=== PATIENT | male | born 1950 | race African-American/Black ===

== ENCOUNTER 2019-11-08 19:31 | Inpatient (IN) | payer MEDICARE, MEDICAID ==
[~2019-11-08] VITALS: Ht 160 cm; Wt 95.7 kg
[~2019-11-08 19:31] MED LIST: ALBUTEROL SULFAT2 MG PO; ATROVENT15 M1 NASAL; FERROUS SULFAT325 MG ORAL; LEVOTHYROXINE150 MCG ORAL; LISINOPRIL2.5 MG ORAL; QVAR7.3 GM INH; TYLENOL325 MG ORAL
[2019-11-08] MEDS ORDERED: SIMVASTATIN10 MG ORAL (19:48)
[2019-11-08] MEDS ORDERED: MINERAL OIL EN133 ML RC (19:48)
[2019-11-08] MEDS ORDERED: DULCOLAX10 MG RC (19:48)
[2019-11-08] MEDS ORDERED: SORBITOL 70%30 ML GT (19:48)
[2019-11-08] MEDS ORDERED: SENNA8.6 M2 PO (19:48)
[2019-11-08] MEDS ORDERED: VITAMIN B-12500 MCG ORAL (19:48)
[2019-11-08] MEDS ORDERED: MULTIVITAMINS1 EAC2 ORAL (19:48)
[2019-11-08 20:00] VITALS: BP 126/68
[2019-11-08] MEDS ORDERED: Acetaminophen 650 MG SUPP RECTAL ONE ×2 (20:04→20:15)
[2019-11-08 20:17] LABS: APPEARANCE,URINE SLIGHTLY CLOUDY; BILIRUBIN, URINE NEGATIVE (NEGATIVE); COLOR,URINE AMBER; GLUCOSE, URINE (UA) NEGATIVE (NEGATIVE); HEMATOCRIT 45.6 % (42.0-52.0); HEMOGLOBIN 13.5 G/DL (14.2-18.0); KETONES,URINE NEGATIVE (NEGATIVE); LEUKOCYTE ESTERASE ,URINE 3+ (NEGATIVE); MEAN CORPUSCULAR VOLUME 111 FL (80-99); NITRITE,URINE POSITIVE (NEGATIVE); PH,URINE 8 (4.5-8.0); PLATELET COUNT 109 K/UL (150-450); PROTEIN,URINE 4+ (NEGATIVE); RED BLOOD COUNT 4.09 M/UL (4.70-6.10); UROBILINOGEN,URINE NORMAL MG/DL (0.0-1.0)
[2019-11-08 20:20] LABS: WHITE BLOOD COUNT 26.9 K/UL (4.8-10.8)
[2019-11-08 20:27] LABS: INR 1.1 (0.9-1.1)
[2019-11-08 20:30] LABS: ANION GAP 8 mmol/L (5-15); BLOOD UREA NITROGEN 39 mg/dL (7-18); CALCIUM 9.6 MG/DL (8.5-10.1); CARBON DIOXIDE 34 MMOL/L (21-32); CHLORIDE 116 MMOL/L (98-107); CREATININE 2.4 MG/DL (0.55-1.30); POTASSIUM 4.2 MMOL/L (3.5-5.1); SODIUM 158 MMOL/L (136-145)
[2019-11-08] MEDS ORDERED: Vancomycin 1.5gm/NS Premix 275 ML IVPB SCH (20:30)
[2019-11-08] MEDS ORDERED: cefTRIAXone 1 GM in NS 55 ML IVPB ONE (20:30)
--- NOTE | 2019-11-08 20:32 | Diagnostic Imaging Report ---
EXAM: XR Chest, 1 View CLINICAL HISTORY: SOB TECHNIQUE: Frontal view of the chest. COMPARISON: 12/22/15 FINDINGS: Lungs: Low lung volumes with bronchovascular crowding. No consolidation, pleural effusion, or pneumothorax. Pleural space: See above. Heart: Unremarkable. No cardiomegaly. Mediastinum: Unremarkable. Bones/joints: Advanced left glenohumeral degenerative findings. IMPRESSION: 1. Low lung volumes with bronchovascular crowding. 2. Otherwise no acute cardiopulmonary disease. 3. If there is continued concern, recommend frontal and lateral chest radiographs or CT. 4. Advanced left glenohumeral degenerative findings.
--- NOTE | 2019-11-08 20:32 | Emergency Room Report ---
History of Present Illness General Chief Complaint: Abnormal Labs Source: Patient Present Illness HPI Patient is a 69-year-old male sent in by nursing facility for abnormal labs. Patient was sent in from the [facility]. Patient has prior history of Down syndrome. Was noted to have abnormal laboratory testing was sent in for further evaluation. Patient had reportedly had been having increased shaking. 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 COVID-19 Screening: PUI COVID-19 COVID-19 Testing Source: k resuts Patient History Past Medical History: see triage record Reviewed Nursing Documentation: PMH: Agreed; PSxH: Agreed Nursing Documentation-PMH Past Medical History: No History, Except For Hx Diabetes: Yes - Type II, Hypothyriodism Review of Systems All Other Systems: limited - Limited by mental status and poor historian Physical Exam Vital Signs Date Time Temp Pulse Resp B/P (MAP) Pulse Ox O2 Delivery O2 Flow Rate FiO2 11/08/19 19:34 97.9 68 20 126/68 (87) 97 Nasal Cannula 3.0 General Appearance: obese, Chronically Ill Eyes: bilateral eye PERRL, bilateral eye other - Right-sided eye discharge ENT: moist mucus membranes Neck: limited range of motion Respiratory: lungs clear, normal breath sounds Cardiovascular #1: tachycardia Gastrointestinal: soft Musculoskeletal: back normal 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 Differential diagnosis include was not limited to pneumonia, bronchitis, urinary tract infection, novel coronavirus infection among others. Because of complexity of patient's case laboratory tests and imaging studies were ordered. Patient's laboratory testing showed markedly elevated white blood count. Urinalysis showed evidence of urinary infection with too numerous to count white cells in urine. Patient was started on IV fluids as well as IV antibiotics. [facility] Davon Falk was contacted for inpatient management Labs Test 11/08/19 19:45 11/08/19 21:17 White Blood Count 26.9 K/UL (4.8-10.8) Red Blood Count 4.09 M/UL (4.70-6.10) Hemoglobin 13.5 G/DL (14.2-18.0) Hematocrit 45.6 % (42.0-52.0) Mean Corpuscular Volume 111 FL (80-99) Mean Corpuscular Hemoglobin 33.0 PG (27.0-31.0) Mean Corpuscular Hemoglobin Concent 29.7 G/DL (32.0-36.0) Red Cell Distribution Width 15.0 % (11.6-14.8) Platelet Count 109 K/UL (150-450) Mean Platelet Volume 12.2 FL (6.5-10.1) Neutrophils (%) (Auto) % (45.0-75.0) Lymphocytes (%) (Auto) % (20.0-45.0) Monocytes (%) (Auto) % (1.0-10.0) Eosinophils (%) (Auto) % (0.0-3.0) Basophils (%) (Auto) % (0.0-2.0) Differential Total Cells Counted 100 Neutrophils % (Manual) 92 % (45-75) Lymphocytes % (Manual) 4 % (20-45) Monocytes % (Manual) 1 % (1-10) Eosinophils % (Manual) 0 % (0-3) Basophils % (Manual) 0 % (0-2) Band Neutrophils 3 % (0-8) Toxic Granulation 1+ Platelet Estimate Decreased Platelet Morphology Normal Anisocytosis 1+ Prothrombin Time 12.2 SEC (9.30-11.50) Prothromb Time International Ratio 1.1 (0.9-1.1) Activated Partial Thromboplast Time 25 SEC (23-33) Urine Color Amanda Urine Appearance Slightly cloudy Urine pH 8 (4.5-8.0) Urine Specific [place] 1.020 (1.005-1.035) Urine Protein 4+ (NEGATIVE) Urine Glucose (UA) Negative (NEGATIVE) Urine Ketones Negative (NEGATIVE) Urine Blood 4+ (NEGATIVE) Urine Nitrite Positive (NEGATIVE) Urine Bilirubin Negative (NEGATIVE) Urine Ictotest Negative (NEGATIVE) Urine Urobilinogen Normal MG/DL (0.0-1.0) Urine Leukocyte Esterase 3+ (NEGATIVE) Urine RBC 15-20 /HPF (0 - 0) Urine WBC Tntc /HPF (0 - 0) Urine Squamous Epithelial Cells Many /LPF (NONE/OCC) Urine Amorphous Sediment Moderate /LPF (NONE) Urine Bacteria Many /HPF (NONE) Sodium Level 158 MMOL/L (136-145) Potassium Level 4.2 MMOL/L (3.5-5.1) Chloride Level 116 MMOL/L (98-107) Carbon Dioxide Level 34 MMOL/L (21-32) Anion Gap 8 mmol/L (5-15) Blood Urea Nitrogen 39 mg/dL (7-18) Creatinine 2.4 MG/DL (0.55-1.30) Estimat Glomerular Filtration Rate 32.8 mL/min (>60) Glucose Level 206 MG/DL (74-106) Calcium Level 9.6 MG/DL (8.5-10.1) Total Bilirubin 0.4 MG/DL (0.2-1.0) Aspartate Amino Transf (AST/SGOT) 43 U/L (15-37) Alanine Aminotransferase (ALT/SGPT) 51 U/L (12-78) Alkaline Phosphatase 104 U/L (46-116) Total Creatine Kinase 281 U/L (26-308) Creatine Kinase MB 1.7 NG/ML (0.0-3.6) Creatine Kinase MB Relative Index 0.6 Troponin I 0.208 ng/mL (0.000-0.056) Pro-B-Type Natriuretic Peptide 3705 pg/mL (0-125) Total Protein 7.9 G/DL (6.4-8.2) Albumin 1.9 G/DL (3.4-5.0) Globulin 6.0 g/dL Albumin/Globulin Ratio 0.3 (1.0-2.7) Lactic Acid Level 1.90 mmol/L (0.66-2.22) Last Vital Signs Date Time Temp Pulse Resp B/P (MAP) Pulse Ox O2 Delivery O2 Flow Rate FiO2 11/08/19 20:00 103.7 108 20 126/68 97 Nasal Cannula 2.0 Status: unchanged Disposition: ADMITTED INPATIENT Condition: Serious Referrals: [place] DO (PCP) Cornel Orozco MD November 08, 2019 20:32
[2019-11-08] MEDS ORDERED: Vancomycin 1.5gm x1 (Pts>70kg) IVPB ONE ×2 (20:45)
[2019-11-08 20:53] LABS: ALANINE AMINOTRANSFERASE 51 U/L (12-78); ALBUMIN 1.9 G/DL (3.4-5.0); ALBUMIN/GLOBULIN RATIO 0.3 (1.0-2.7); ALKALINE PHOSPHATASE 104 U/L (46-116); ASPARTATE AMINO TRANSFERASE 43 U/L (15-37); BILIRUBIN,TOTAL 0.4 MG/DL (0.2-1.0); CKMB 1.7 NG/ML (0.0-3.6); CREATINE KINASE 281 U/L (26-308)
[2019-11-08 22:48] VITALS: BP 126/68
[2019-11-08 23:45] VITALS: BP 174/124
[2019-11-08] MEDS ORDERED: dilTIAZem HCl 25mg/5ml Inj ONE (23:51)
[2019-11-09] VITALS (12 sets, daily range): BP systolic 67–134; BP diastolic 40–98
[2019-11-09] MEDS ORDERED: dilTIAZem HCl 50mg/10ml Inj IVP ONE
[2019-11-09] MEDS ORDERED: D5 1/2NS 1,000 ML IV SCH (01:30)
[2019-11-09] MEDS ORDERED: Zosyn 2.25gm inj IV SCH (06:00)
[2019-11-09] MEDS: Zoysn 3.37gm in NS 100ML IVPB SCH ×3 (07:33→21:48)
[2019-11-09 07:54] LABS: HEMATOCRIT 34.7 % (42.0-52.0); HEMOGLOBIN 11.6 G/DL (14.2-18.0); MEAN CORPUSCULAR VOLUME 102 FL (80-99); PLATELET COUNT 77 K/UL (150-450); RED BLOOD COUNT 3.41 M/UL (4.70-6.10); RED CELL DISTRIBUTION WIDTH 14.3 % (11.6-14.8)
[2019-11-09 07:57] LABS: WHITE BLOOD COUNT 28.9 K/UL (4.8-10.8)
[2019-11-09 08:22] LABS: ANION GAP 4 mmol/L (5-15); BLOOD UREA NITROGEN 37 mg/dL (7-18); CALCIUM 8.5 MG/DL (8.5-10.1); CARBON DIOXIDE 32 MMOL/L (21-32); CHLORIDE 120 MMOL/L (98-107); CREATININE 2.2 MG/DL (0.55-1.30); FERRITIN 538 NG/ML (8-388); PHOSPHORUS 3.8 MG/DL (2.5-4.9); POTASSIUM 4.5 MMOL/L (3.5-5.1); SODIUM 156 MMOL/L (136-145)
[2019-11-09] MEDS: Enoxaparin 40mg Inj SUBQ SCH (09:00)
--- NOTE | 2019-11-09 09:37 | Consultation ---
History of Present Illness General Date patient seen: November 09, 2019 Time patient seen: 08:00 Chief Complaint: Abnormal Labs Referring physician: Dr Falk Reason for Consultation: COPD, sepsis Present Illness HPI 69 years old male with DNR/ DNI status, with past medical history of Down syndrome, sleep apnea, hypothyroidism, diabetes mellitus, [facility] due to abnormal labs. Upon evaluation patient had fever 103.7 and required 3 L of oxygen via nasal cannula. Laboratory work-up revealed significant leukocytosis WBC 26.9 , hemoglobin 13.5 , hematocrit 45.6, platelet count 109. Lymphopenia noted 4%. INR 1.1. Urinalysis revealed + 4 protein, +3 leukocyte esterase, pyuria and many bacteria/ grossly positive for UTI. Chemistry revealed sodium 158 . BUN 39, creatinine 2.4. Glucose 206. Total CK 281. AST 43 ALT 51. Troponin 0.208 , pro BNP 2654 ECG revealed no acute ischemic changes. Lactic acid 1.9 CXR revealed low lung volumes with bronchovascular crowding. Otherwise no acute cardiopulmonary disease. Patient was swab for COVID-19 Patient subsequently admitted to telemetry floor for further management. In emergency department patient pancultured, received antipyretic, started on IV fluids and empiric antibiotics and admitted for further management. Allergies: Coded Allergies: ALLOPURINOL (Verified Allergy, Unknown, 12/22/15) Medication History Scheduled Albuterol Sulfate* (Albuterol Sulfate*), 2 MG PO QID, (Reported) Beclomethasone Dipropionate 40MCG Oral Inh (Qvar 40*), 2 PUFFS INH TWICE A DAY, (Reported) Cyanocobalamin (Vitamin B-12)* (Vitamin B-12*), 1,000 MCG ORAL DAILY, (Reported) Ferrous Sulfate* (Ferrous Sulfate*), 325 MG ORAL TWICE A DAY, (Reported) Ipratropium [place] (Atrovent), 1 SPRAY NASAL FOUR TIMES A DAY, (Reported) Levothyroxine Sodium* (Levothyroxine Sodium*), 150 MCG ORAL DAILY, (Reported) Lisinopril* (Lisinopril*), 5 MG ORAL DAILY, (Reported) Multivitamins* (Multivitamins*), 1 TAB ORAL DAILY, (Reported) Simvastatin (Zocor), 10 MG ORAL BEDTIME, (Reported) Scheduled PRN Acetaminophen (Tylenol), 650 MG ORAL Q4HR PRN for For Pain, (Reported) Miscellaneous Medications Bisacodyl (Dulcolax), 10 MG RC, (Reported) Mineral Oil (Mineral Oil Enema), 133 ML RC, (Reported) Sennosides (Senna), 8.6 MG PO, (Reported) Sorbitol (Sorbitol), 30 ML GT, (Reported) Patient History Healthcare decision maker Resuscitation status DNR/DNI status Advanced Directive on File Review of Systems ROS Narrative unable to obtain due to patient's medical condition Physical Exam General Appearance: no apparent distress, alert, confused, other - developmentally delayed bedridden male in NAD Lines, tubes and drains: peripheral HEENT: normocephalic, atraumatic, anicteric Neck: supple Respiratory/Chest: lungs clear, no respiratory distress Cardiovascular/Chest: normal rate - SR with BBB, regular rhythm Abdomen: normal bowel sounds, non tender, soft - obese Extremities: other - trace edema BLE Skin Exam: warm/dry Neurologic: abnormal gait, other - awake, poorly follows commands, limited ROM Last 24 Hour Vital Signs Date Time Temp Pulse Resp B/P (MAP) Pulse Ox O2 Delivery O2 Flow Rate FiO2 11/09/19 08:59 Nasal Cannula 2.0 11/09/19 08:00 97.5 86 18 99/51 (67) 95 11/09/19 06:55 99.5 83 24 90/49 (63) 95 11/09/19 06:30 99.5 80 24 75/40 (52) 97 11/09/19 06:30 81 24 95 11/09/19 06:00 99.8 81 24 72/45 (54) 94 11/09/19 04:45 99.2 87 23 87/51 (63) 95 11/09/19 04:00 98.9 82 24 67/40 (49) 96 11/09/19 04:00 86 11/09/19 01:05 100.6 88 22 78/45 (56) 94 11/09/19 01:00 Nasal Cannula 2.0 11/09/19 00:50 100.6 83 22 88/49 (62) 94 11/09/19 00:40 100.6 11/09/19 00:05 101.8 91 20 174/124 97 Nasal Cannula 2.0 11/09/19 00:00 101.8 91 20 134/98 97 Nasal Cannula 2.0 11/09/19 00:00 88 11/08/19 23:58 145 174/124 11/08/19 23:45 101.8 145 20 174/124 97 Nasal Cannula 2.0 11/08/19 22:48 101.8 108 20 126/68 97 Nasal Cannula 2.0 11/08/19 20:00 103.7 108 20 126/68 97 Nasal Cannula 2.0 11/08/19 19:34 97.9 68 20 126/68 (87) 97 Nasal Cannula 3.0 Intake and Output 11/08/19 11/09/19 19:00 07:00 Intake Total 0 ml Output Total 150 ml Balance -150 ml Intake Oral 0 ml Output Urine Total 150 ml Laboratory Tests Test 11/08/19 19:45 11/08/19 21:17 11/09/19 06:58 White Blood Count 26.9 K/UL (4.8-10.8) *H 28.9 K/UL (4.8-10.8) *H Red Blood Count 4.09 M/UL (4.70-6.10) L 3.41 M/UL (4.70-6.10) L Hemoglobin 13.5 G/DL (14.2-18.0) L 11.6 G/DL (14.2-18.0) L Hematocrit 45.6 % (42.0-52.0) 34.7 % (42.0-52.0) L Mean Corpuscular Volume 111 FL (80-99) H 102 FL (80-99) #H Mean Corpuscular Hemoglobin 33.0 PG (27.0-31.0) H 33.9 PG (27.0-31.0) H Mean Corpuscular Hemoglobin Concent 29.7 G/DL (32.0-36.0) L 33.3 G/DL (32.0-36.0) Red Cell Distribution Width 15.0 % (11.6-14.8) H 14.3 % (11.6-14.8) Platelet Count 109 K/UL (150-450) L 77 K/UL (150-450) L Mean Platelet Volume 12.2 FL (6.5-10.1) H 14.9 FL (6.5-10.1) H Neutrophils (%) (Auto) % (45.0-75.0) % (45.0-75.0) Lymphocytes (%) (Auto) % (20.0-45.0) % (20.0-45.0) Monocytes (%) (Auto) % (1.0-10.0) % (1.0-10.0) Eosinophils (%) (Auto) % (0.0-3.0) % (0.0-3.0) Basophils (%) (Auto) % (0.0-2.0) % (0.0-2.0) Differential Total Cells Counted 100 Neutrophils % (Manual) 92 % (45-75) H Pending Lymphocytes % (Manual) 4 % (20-45) L Pending Monocytes % (Manual) 1 % (1-10) Eosinophils % (Manual) 0 % (0-3) Basophils % (Manual) 0 % (0-2) Band Neutrophils 3 % (0-8) Toxic Granulation 1+ Platelet Estimate Decreased L Pending Platelet Morphology Normal Pending Anisocytosis 1+ Prothrombin Time 12.2 SEC (9.30-11.50) H Prothromb Time International Ratio 1.1 (0.9-1.1) Activated Partial Thromboplast Time 25 SEC (23-33) Urine Color Amanda Urine Appearance Slightly cloudy Urine pH 8 (4.5-8.0) Urine Specific [place] 1.020 (1.005-1.035) Urine Protein 4+ (NEGATIVE) H Urine Glucose (UA) Negative (NEGATIVE) Urine Ketones Negative (NEGATIVE) Urine Blood 4+ (NEGATIVE) H Urine Nitrite Positive (NEGATIVE) H Urine Bilirubin Negative (NEGATIVE) Urine Ictotest Negative (NEGATIVE) Urine Urobilinogen Normal MG/DL (0.0-1.0) Urine Leukocyte Esterase 3+ (NEGATIVE) H Urine RBC 15-20 /HPF (0 - 0) H Urine WBC Tntc /HPF (0 - 0) H Urine Squamous Epithelial Cells Many /LPF (NONE/OCC) H Urine Amorphous Sediment Moderate /LPF (NONE) H Urine Bacteria Many /HPF (NONE) H Sodium Level 158 MMOL/L (136-145) H 156 MMOL/L (136-145) H Potassium Level 4.2 MMOL/L (3.5-5.1) 4.5 MMOL/L (3.5-5.1) Chloride Level 116 MMOL/L (98-107) H 120 MMOL/L (98-107) H Carbon Dioxide Level 34 MMOL/L (21-32) H 32 MMOL/L (21-32) Anion Gap 8 mmol/L (5-15) 4 mmol/L (5-15) L Blood Urea Nitrogen 39 mg/dL (7-18) H 37 mg/dL (7-18) H Creatinine 2.4 MG/DL (0.55-1.30) H 2.2 MG/DL (0.55-1.30) H Estimat Glomerular Filtration Rate 32.8 mL/min (>60) 36.2 mL/min (>60) Glucose Level 206 MG/DL (74-106) H 194 MG/DL (74-106) H Lactic Acid Level 4.10 mmol/L (0.4-2.0) H 1.90 mmol/L (0.66-2.22) Calcium Level 9.6 MG/DL (8.5-10.1) 8.5 MG/DL (8.5-10.1) Total Bilirubin 0.4 MG/DL (0.2-1.0) Aspartate Amino Transf (AST/SGOT) 43 U/L (15-37) H Alanine Aminotransferase (ALT/SGPT) 51 U/L (12-78) Alkaline Phosphatase 104 U/L (46-116) Total Creatine Kinase 281 U/L (26-308) Creatine Kinase MB 1.7 NG/ML (0.0-3.6) Creatine Kinase MB Relative Index 0.6 Troponin I 0.208 ng/mL (0.000-0.056) 0.147 ng/mL (0.000-0.056) Pro-B-Type Natriuretic Peptide 3705 pg/mL (0-125) H 2654 pg/mL (0-125) H Total Protein 7.9 G/DL (6.4-8.2) Albumin 1.9 G/DL (3.4-5.0) L Globulin 6.0 g/dL Albumin/Globulin Ratio 0.3 (1.0-2.7) L Phosphorus Level 3.8 MG/DL (2.5-4.9) Magnesium Level 2.0 MG/DL (1.8-2.4) Ferritin 538 NG/ML (8-388) H Procainamide Level Pending T-Mrdfjw-Izwktfcuffpy Level Pending Procainamide & NAPA Level Pending Microbiology Date/Time Source Procedure Growth Status 11/08/19 19:45 Urine,Clean Catch Urine Culture - Preliminary NO GROWTH Resulted 11/08/19 20:08 Rectum Received Height (Feet): 5 Height (Inches): 3.00 Weight (Pounds): 218 Medications Current Medications Medications (Trade) Dose Ordered Sig/Femi Route PRN Reason Start Time Stop Time Status Last Admin Dose Admin Dextrose/Sodium Chloride 1,000 ml @ 50 mls/hr Q20H IV 11/09/19 01:30 12/09/19 01:29 11/09/19 02:16 Enoxaparin Sodium (Lovenox) 40 mg DAILY SUBQ 11/09/19 09:00 02/07/20 08:59 Piperacillin Sod/ Tazobactam Sod 3.375 gm/Sodium Chloride 110 ml @ 27.5 mls/hr EVERY 8 HOURS IVPB 11/09/19 06:00 11/14/19 05:59 11/09/19 07:33 Vancomycin HCl (Vanco rx to dose) 1 ea DAILY MISC 11/09/19 09:00 12/09/19 08:59 Assessment/Plan Assessment/Plan: ASSESSMENT Sepsis Suspected COVID-19 infection UTI Possible pneumonia Acute kidney injury likely due to dehydration Elevated troponin possible ACS Diabetes mellitus Obstructive sleep apnea Hypothyroidism Down syndrome Thrombocytopenia DNR/DNI status PLAN OF CARE tele isolation fup with SARS-COV 2 by PSR O2 titrate to keep sat above 92%, pulmonary toilet fup with CXR DVT prophylaxis closely monitor resp status, may need BiPAP at night, Co2 stable currently empiric abx, fup with cx ID consult serial troponin EKG echo NPO, IVF, monitor renal parameters, electrolytes, avoid nephrotoxic possible underlying chronic renal insufficiency trend PLT counts, may need to stop Heparin if falls below 90 check HgA1c, IVF with dextrose, monitor BS check TSH and resume Levothyroxine when start eating resume SNF medication supportive care case discussed and evaluated by supervising physician Candy Hurley NP November 09, 2019 09:37
--- NOTE | 2019-11-09 13:37 | History & Physical ---
History and Physical History & Physicial Dictated for Int Med-Dr Falk no. [id number] Luis Rodriguez MD November 09, 2019 13:37
--- NOTE | 2019-11-09 14:24 | Consultation ---
Consult Note Consult Note I am asked to evaluate the patient at the request of Dr. Falk for renal failure Patient is a 69-year-old male sent in by nursing facility for abnormal labs. Patient was sent in from the [facility]. Patient has prior history of Down syndrome. Was noted to have abnormal laboratory testing was sent in for further evaluation. Patient had reportedly had been having increased shaking. 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 COVID-19 Screening: PUI COVID-19 COVID-19 Testing Source: unk resuts Past Medical History: No History, Except For Hx Diabetes: Yes - Type II, Hypothyriodism Patient interviewed, non-historian Examined Data reviewed Discussed with wood borer/Plan Renal failure most likely acute on chronic Renal failure has a major component of dehydration due to hypernatremia Sepsis and leukocytosis, possible pneumonia Anemia Elevated troponin 4+ proteinuria, UTI Suspected COVID-19 infection Diabetes mellitus Obstructive sleep apnea Down syndrome Hypothyroidism DNR/DNI Suggestions: Hydrate with D5W ST eval Monitor renal parameters Avoid nephrotoxic's Antibiotics Thyroid function tests Keep the blood pressure and blood sugar in check Serial troponin I and EKG Aspirin and nitrates Per orders I spent an additional 36 minutes on review of medical records including prior hospital records,consult notes, progress notes, procedures ,imaging labs, hemodynamics, and other clinical documentation. Alexis Villagomez MD November 09, 2019 14:24
[2019-11-09] MEDS: Nitroglycerin Patch 0.1mg/hr TDERMAL SCH (15:48)
[2019-11-09] MEDS: Pantoprazole Inj IVP SCH ×2 (15:48→20:09)
--- NOTE | 2019-11-09 16:11 | Cardiology Progress Note ---
Subjective Subjective [id number] Objective Last 24 Hour Vital Signs Date Time Temp Pulse Resp B/P (MAP) Pulse Ox O2 Delivery O2 Flow Rate FiO2 11/09/19 15:48 104/69 11/09/19 12:00 70 11/09/19 12:00 96.4 57 19 104/69 (81) 96 11/09/19 08:59 Nasal Cannula 2.0 11/09/19 08:00 97.5 86 18 99/51 (67) 95 11/09/19 08:00 76 11/09/19 06:55 99.5 83 24 90/49 (63) 95 11/09/19 06:30 99.5 80 24 75/40 (52) 97 11/09/19 06:30 81 24 95 11/09/19 06:00 99.8 81 24 72/45 (54) 94 11/09/19 04:45 99.2 87 23 87/51 (63) 95 11/09/19 04:00 98.9 82 24 67/40 (49) 96 11/09/19 04:00 86 11/09/19 01:05 100.6 88 22 78/45 (56) 94 11/09/19 01:00 Nasal Cannula 2.0 11/09/19 00:50 100.6 83 22 88/49 (62) 94 11/09/19 00:40 100.6 11/09/19 00:05 101.8 91 20 174/124 97 Nasal Cannula 2.0 11/09/19 00:00 101.8 91 20 134/98 97 Nasal Cannula 2.0 11/09/19 00:00 88 11/08/19 23:58 145 174/124 11/08/19 23:45 101.8 145 20 174/124 97 Nasal Cannula 2.0 11/08/19 22:48 101.8 108 20 126/68 97 Nasal Cannula 2.0 11/08/19 20:00 103.7 108 20 126/68 97 Nasal Cannula 2.0 11/08/19 19:34 97.9 68 20 126/68 (87) 97 Nasal Cannula 3.0 Intake and Output 11/08/19 11/09/19 19:00 07:00 Intake Total 0 ml Output Total 150 ml Balance -150 ml Intake Oral 0 ml Output Urine Total 150 ml Laboratory Tests Test 5/24/20 19:45 11/08/19 21:17 11/09/19 06:58 White Blood Count 26.9 K/UL (4.8-10.8) *H 28.9 K/UL (4.8-10.8) *H Red Blood Count 4.09 M/UL (4.70-6.10) L 3.41 M/UL (4.70-6.10) L Hemoglobin 13.5 G/DL (14.2-18.0) L 11.6 G/DL (14.2-18.0) L Hematocrit 45.6 % (42.0-52.0) 34.7 % (42.0-52.0) L Mean Corpuscular Volume 111 FL (80-99) H 102 FL (80-99) #H Mean Corpuscular Hemoglobin 33.0 PG (27.0-31.0) H 33.9 PG (27.0-31.0) H Mean Corpuscular Hemoglobin Concent 29.7 G/DL (32.0-36.0) L 33.3 G/DL (32.0-36.0) Red Cell Distribution Width 15.0 % (11.6-14.8) H 14.3 % (11.6-14.8) Platelet Count 109 K/UL (150-450) L 77 K/UL (150-450) L Mean Platelet Volume 12.2 FL (6.5-10.1) H 14.9 FL (6.5-10.1) H Neutrophils (%) (Auto) % (45.0-75.0) % (45.0-75.0) Lymphocytes (%) (Auto) % (20.0-45.0) % (20.0-45.0) Monocytes (%) (Auto) % (1.0-10.0) % (1.0-10.0) Eosinophils (%) (Auto) % (0.0-3.0) % (0.0-3.0) Basophils (%) (Auto) % (0.0-2.0) % (0.0-2.0) Differential Total Cells Counted 100 100 Neutrophils % (Manual) 92 % (45-75) H 88 % (45-75) H Lymphocytes % (Manual) 4 % (20-45) L 5 % (20-45) L Monocytes % (Manual) 1 % (1-10) 3 % (1-10) Eosinophils % (Manual) 0 % (0-3) 0 % (0-3) Basophils % (Manual) 0 % (0-2) 0 % (0-2) Band Neutrophils 3 % (0-8) 4 % (0-8) Toxic Granulation 1+ Platelet Estimate Decreased L Decreased L Platelet Morphology Normal Normal Anisocytosis 1+ 1+ Prothrombin Time 12.2 SEC (9.30-11.50) H Prothromb Time International Ratio 1.1 (0.9-1.1) Activated Partial Thromboplast Time 25 SEC (23-33) Urine Color Amanda Urine Appearance Slightly cloudy Urine pH 8 (4.5-8.0) Urine Specific [place] 1.020 (1.005-1.035) Urine Protein 4+ (NEGATIVE) H Urine Glucose (UA) Negative (NEGATIVE) Urine Ketones Negative (NEGATIVE) Urine Blood 4+ (NEGATIVE) H Urine Nitrite Positive (NEGATIVE) H Urine Bilirubin Negative (NEGATIVE) Urine Ictotest Negative (NEGATIVE) Urine Urobilinogen Normal MG/DL (0.0-1.0) Urine Leukocyte Esterase 3+ (NEGATIVE) H Urine RBC 15-20 /HPF (0 - 0) H Urine WBC Tntc /HPF (0 - 0) H Urine Squamous Epithelial Cells Many /LPF (NONE/OCC) H Urine Amorphous Sediment Moderate /LPF (NONE) H Urine Bacteria Many /HPF (NONE) H Sodium Level 158 MMOL/L (136-145) H 156 MMOL/L (136-145) H Potassium Level 4.2 MMOL/L (3.5-5.1) 4.5 MMOL/L (3.5-5.1) Chloride Level 116 MMOL/L (98-107) H 120 MMOL/L (98-107) H Carbon Dioxide Level 34 MMOL/L (21-32) H 32 MMOL/L (21-32) Anion Gap 8 mmol/L (5-15) 4 mmol/L (5-15) L Blood Urea Nitrogen 39 mg/dL (7-18) H 37 mg/dL (7-18) H Creatinine 2.4 MG/DL (0.55-1.30) H 2.2 MG/DL (0.55-1.30) H Estimat Glomerular Filtration Rate 32.8 mL/min (>60) 36.2 mL/min (>60) Glucose Level 206 MG/DL (74-106) H 194 MG/DL (74-106) H Lactic Acid Level 4.10 mmol/L (0.4-2.0) H 1.90 mmol/L (0.66-2.22) Calcium Level 9.6 MG/DL (8.5-10.1) 8.5 MG/DL (8.5-10.1) Total Bilirubin 0.4 MG/DL (0.2-1.0) Aspartate Amino Transf (AST/SGOT) 43 U/L (15-37) H Alanine Aminotransferase (ALT/SGPT) 51 U/L (12-78) Alkaline Phosphatase 104 U/L (46-116) Total Creatine Kinase 281 U/L (26-308) Creatine Kinase MB 1.7 NG/ML (0.0-3.6) Creatine Kinase MB Relative Index 0.6 Troponin I 0.208 ng/mL (0.000-0.056) 0.147 ng/mL (0.000-0.056) Pro-B-Type Natriuretic Peptide 3705 pg/mL (0-125) H 2654 pg/mL (0-125) H Total Protein 7.9 G/DL (6.4-8.2) Albumin 1.9 G/DL (3.4-5.0) L Globulin 6.0 g/dL Albumin/Globulin Ratio 0.3 (1.0-2.7) L Macrocytosis 1+ Phosphorus Level 3.8 MG/DL (2.5-4.9) Magnesium Level 2.0 MG/DL (1.8-2.4) Ferritin 538 NG/ML (8-388) H Procainamide Level Pending Q-Ehaibg-Zfrvhlkdalye Level Pending Procainamide & NAPA Level Pending Microbiology Date/Time Source Procedure Growth Status 11/08/19 19:45 Urine,Clean Catch Urine Culture - Preliminary NO GROWTH Resulted 11/08/19 20:08 Rectum Received Tiffanie Michel MD November 09, 2019 16:11
--- NOTE | 2019-11-09 17:13 | Consultation ---
History of Present Illness General Date patient seen: November 09, 2019 Chief Complaint: Abnormal Labs Referring physician: Dr Falk Reason for Consultation: COPD, sepsis Present Illness HPI 69 y/o M with hx of Down Syndrome, COPD, Dm2, hypothryoidism, SNF resident ( [facility]) presented to ED on 11/07 with fever up to 103 and YOEL. Allergies: Coded Allergies: ALLOPURINOL (Verified Allergy, Unknown, 12/22/15) Medication History Scheduled Albuterol Sulfate* (Albuterol Sulfate*), 2 MG PO QID, (Reported) Beclomethasone Dipropionate 40MCG Oral Inh (Qvar 40*), 2 PUFFS INH TWICE A DAY, (Reported) Cyanocobalamin (Vitamin B-12)* (Vitamin B-12*), 1,000 MCG ORAL DAILY, (Reported) Ferrous Sulfate* (Ferrous Sulfate*), 325 MG ORAL TWICE A DAY, (Reported) Ipratropium [place]utan (Atrovent), 1 SPRAY NASAL FOUR TIMES A DAY, (Reported) Levothyroxine Sodium* (Levothyroxine Sodium*), 150 MCG ORAL DAILY, (Reported) Lisinopril* (Lisinopril*), 5 MG ORAL DAILY, (Reported) Multivitamins* (Multivitamins*), 1 TAB ORAL DAILY, (Reported) Simvastatin (Zocor), 10 MG ORAL BEDTIME, (Reported) Scheduled PRN Acetaminophen (Tylenol), 650 MG ORAL Q4HR PRN for For Pain, (Reported) Miscellaneous Medications Bisacodyl (Dulcolax), 10 MG RC, (Reported) Mineral Oil (Mineral Oil Enema), 133 ML RC, (Reported) Sennosides (Senna), 8.6 MG PO, (Reported) Sorbitol (Sorbitol), 30 ML GT, (Reported) Patient History Healthcare decision maker Resuscitation status Advanced Directive on File Patient History Narrative Pmhx: as above SHx: reviewed Fhx: non contributory Review of Systems All Other Systems: negative except mentioned in HPI Physical Exam Physical Exam Narrative General Appearance: no apparent distress, alert, confused, other - developmentally delayed bedridden male in NAD Lines, tubes and drains: peripheral HEENT: normocephalic, atraumatic, anicteric Neck: supple Respiratory/Chest: lungs clear, no respiratory distress Cardiovascular/Chest: normal rate - SR with BBB, regular rhythm Abdomen: normal bowel sounds, non tender, soft - obese Extremities: other - trace edema BLE Skin Exam: warm/dry Neurologic: abnormal gait, other - awake, poorly follows commands, limited ROM Last 24 Hour Vital Signs Date Time Temp Pulse Resp B/P (MAP) Pulse Ox O2 Delivery O2 Flow Rate FiO2 11/09/19 16:00 98.6 75 18 108/71 (83) 98 11/09/19 15:48 104/69 11/09/19 12:00 70 11/09/19 12:00 96.4 57 19 104/69 (81) 96 11/09/19 08:59 Nasal Cannula 2.0 11/09/19 08:00 97.5 86 18 99/51 (67) 95 11/09/19 08:00 76 11/09/19 06:55 99.5 83 24 90/49 (63) 95 11/09/19 06:30 99.5 80 24 75/40 (52) 97 11/09/19 06:30 81 24 95 11/09/19 06:00 99.8 81 24 72/45 (54) 94 11/09/19 04:45 99.2 87 23 87/51 (63) 95 11/09/19 04:00 98.9 82 24 67/40 (49) 96 11/09/19 04:00 86 11/09/19 01:05 100.6 88 22 78/45 (56) 94 11/09/19 01:00 Nasal Cannula 2.0 11/09/19 00:50 100.6 83 22 88/49 (62) 94 11/09/19 00:40 100.6 11/09/19 00:05 101.8 91 20 174/124 97 Nasal Cannula 2.0 11/09/19 00:00 101.8 91 20 134/98 97 Nasal Cannula 2.0 11/09/19 00:00 88 11/08/19 23:58 145 174/124 11/08/19 23:45 101.8 145 20 174/124 97 Nasal Cannula 2.0 11/08/19 22:48 101.8 108 20 126/68 97 Nasal Cannula 2.0 11/08/19 20:00 103.7 108 20 126/68 97 Nasal Cannula 2.0 5/24/20 19:34 97.9 68 20 126/68 (87) 97 Nasal Cannula 3.0 Intake and Output 11/08/19 11/09/19 19:00 07:00 Intake Total 0 ml Output Total 150 ml Balance -150 ml Intake Oral 0 ml Output Urine Total 150 ml Laboratory Tests Test 11/08/19 19:45 11/08/19 21:17 11/09/19 06:58 White Blood Count 26.9 K/UL (4.8-10.8) *H 28.9 K/UL (4.8-10.8) *H Red Blood Count 4.09 M/UL (4.70-6.10) L 3.41 M/UL (4.70-6.10) L Hemoglobin 13.5 G/DL (14.2-18.0) L 11.6 G/DL (14.2-18.0) L Hematocrit 45.6 % (42.0-52.0) 34.7 % (42.0-52.0) L Mean Corpuscular Volume 111 FL (80-99) H 102 FL (80-99) #H Mean Corpuscular Hemoglobin 33.0 PG (27.0-31.0) H 33.9 PG (27.0-31.0) H Mean Corpuscular Hemoglobin Concent 29.7 G/DL (32.0-36.0) L 33.3 G/DL (32.0-36.0) Red Cell Distribution Width 15.0 % (11.6-14.8) H 14.3 % (11.6-14.8) Platelet Count 109 K/UL (150-450) L 77 K/UL (150-450) L Mean Platelet Volume 12.2 FL (6.5-10.1) H 14.9 FL (6.5-10.1) H Neutrophils (%) (Auto) % (45.0-75.0) % (45.0-75.0) Lymphocytes (%) (Auto) % (20.0-45.0) % (20.0-45.0) Monocytes (%) (Auto) % (1.0-10.0) % (1.0-10.0) Eosinophils (%) (Auto) % (0.0-3.0) % (0.0-3.0) Basophils (%) (Auto) % (0.0-2.0) % (0.0-2.0) Differential Total Cells Counted 100 100 Neutrophils % (Manual) 92 % (45-75) H 88 % (45-75) H Lymphocytes % (Manual) 4 % (20-45) L 5 % (20-45) L Monocytes % (Manual) 1 % (1-10) 3 % (1-10) Eosinophils % (Manual) 0 % (0-3) 0 % (0-3) Basophils % (Manual) 0 % (0-2) 0 % (0-2) Band Neutrophils 3 % (0-8) 4 % (0-8) Toxic Granulation 1+ Platelet Estimate Decreased L Decreased L Platelet Morphology Normal Normal Anisocytosis 1+ 1+ Prothrombin Time 12.2 SEC (9.30-11.50) H Prothromb Time International Ratio 1.1 (0.9-1.1) Activated Partial Thromboplast Time 25 SEC (23-33) Urine Color Amanda Urine Appearance Slightly cloudy Urine pH 8 (4.5-8.0) Urine Specific Hobson 1.020 (1.005-1.035) Urine Protein 4+ (NEGATIVE) H Urine Glucose (UA) Negative (NEGATIVE) Urine Ketones Negative (NEGATIVE) Urine Blood 4+ (NEGATIVE) H Urine Nitrite Positive (NEGATIVE) H Urine Bilirubin Negative (NEGATIVE) Urine Ictotest Negative (NEGATIVE) Urine Urobilinogen Normal MG/DL (0.0-1.0) Urine Leukocyte Esterase 3+ (NEGATIVE) H Urine RBC 15-20 /HPF (0 - 0) H Urine WBC Tntc /HPF (0 - 0) H Urine Squamous Epithelial Cells Many /LPF (NONE/OCC) H Urine Amorphous Sediment Moderate /LPF (NONE) H Urine Bacteria Many /HPF (NONE) H Sodium Level 158 MMOL/L (136-145) H 156 MMOL/L (136-145) H Potassium Level 4.2 MMOL/L (3.5-5.1) 4.5 MMOL/L (3.5-5.1) Chloride Level 116 MMOL/L (98-107) H 120 MMOL/L (98-107) H Carbon Dioxide Level 34 MMOL/L (21-32) H 32 MMOL/L (21-32) Anion Gap 8 mmol/L (5-15) 4 mmol/L (5-15) L Blood Urea Nitrogen 39 mg/dL (7-18) H 37 mg/dL (7-18) H Creatinine 2.4 MG/DL (0.55-1.30) H 2.2 MG/DL (0.55-1.30) H Estimat Glomerular Filtration Rate 32.8 mL/min (>60) 36.2 mL/min (>60) Glucose Level 206 MG/DL (74-106) H 194 MG/DL (74-106) H Lactic Acid Level 4.10 mmol/L (0.4-2.0) H 1.90 mmol/L (0.66-2.22) Calcium Level 9.6 MG/DL (8.5-10.1) 8.5 MG/DL (8.5-10.1) Total Bilirubin 0.4 MG/DL (0.2-1.0) Aspartate Amino Transf (AST/SGOT) 43 U/L (15-37) H Alanine Aminotransferase (ALT/SGPT) 51 U/L (12-78) Alkaline Phosphatase 104 U/L (46-116) Total Creatine Kinase 281 U/L (26-308) Creatine Kinase MB 1.7 NG/ML (0.0-3.6) Creatine Kinase MB Relative Index 0.6 Troponin I 0.208 ng/mL (0.000-0.056) 0.147 ng/mL (0.000-0.056) Pro-B-Type Natriuretic Peptide 3705 pg/mL (0-125) H 2654 pg/mL (0-125) H Total Protein 7.9 G/DL (6.4-8.2) Albumin 1.9 G/DL (3.4-5.0) L Globulin 6.0 g/dL Albumin/Globulin Ratio 0.3 (1.0-2.7) L Macrocytosis 1+ Phosphorus Level 3.8 MG/DL (2.5-4.9) Magnesium Level 2.0 MG/DL (1.8-2.4) Ferritin 538 NG/ML (8-388) H Procainamide Level Pending A-Lyhome-Nonxkztcvayc Level Pending Procainamide & NAPA Level Pending Microbiology Date/Time Source Procedure Growth Status 11/08/19 19:45 Urine,Clean Catch Urine Culture - Preliminary NO GROWTH Resulted 11/08/19 20:08 Rectum Received Height (Feet): 5 Height (Inches): 3.00 Weight (Pounds): 218 Medications Current Medications Medications (Trade) Dose Ordered Sig/Femi Route PRN Reason Start Time Stop Time Status Last Admin Dose Admin Aspirin (ASA) 325 mg DAILY ORAL 11/09/19 14:45 12/24/19 14:44 11/09/19 15:48 Dextrose 1,000 ml @ 100 mls/hr Q10H IV 11/09/19 15:00 12/09/19 14:59 Docusate Sodium (Colace) 100 mg THREE TIMES A DAY ORAL 11/09/19 18:00 12/09/19 17:59 Enoxaparin Sodium (Lovenox) 40 mg DAILY SUBQ 11/09/19 09:00 02/07/20 08:59 Midodrine (Pro-Amatine) 2.5 mg THREE TIMES A DAY ORAL 11/09/19 14:45 02/07/20 14:44 Nitroglycerin (Ntg) 1 patch Q24H TDERMAL 11/09/19 16:00 12/09/19 15:59 11/09/19 15:48 Pantoprazole (Protonix) 40 mg EVERY 12 HOURS IVP 11/09/19 14:45 12/09/19 14:44 11/09/19 15:48 Piperacillin Sod/ Tazobactam Sod 3.375 gm/Sodium Chloride 110 ml @ 27.5 mls/hr EVERY 8 HOURS IVPB 11/09/19 06:00 11/14/19 05:59 11/09/19 13:16 Vancomycin HCl (Vanco rx to dose) 1 ea DAILY PRN MISC Rx to dose 11/09/19 11:15 12/09/19 08:59 Assessment/Plan Assessment/Plan: Abx: IV Vancomycin 11/07- Zosyn 11/08- Ceftriaxone x1 11/07 Assessment: Severe Sepsis Probable UTI R/o Probable bacteremia -u/a wbc tntc, nit +, leuk +3; ucx NTD FEver- r/o COVID19 Hyperleukocytosis Lymphopenia Thrombocytopenia -CXR: Low lung volumes with bronchovascular crowding. Otherwise no acute cardiopulmonary disease. YOEL, improving Down Syndrome COPD Dm2 hypothryoidism SNF resident ([facility]) Plan: -Continue empiric IV Vancomycin #2 and Zosyn #1 pending cultures -f/u cx -Monitor CBC/CMP, temperature -COVID19 isolation and testing Thank you for consulting [facility]. Will continue to follow along with you. Polly Fuentes M.D. November 09, 2019 17:13
[2019-11-09] MEDS: Docusate 100mg cap ORAL SCH (17:18)
--- NOTE | 2019-11-09 18:30 | History and Physical Report ---
DATE OF ADMISSION: 11/08/2019 CHIEF COMPLAINT: Patient is a 69-year-old male with a history of Down syndrome who is admitted with chief complaint of abnormal laboratories. HISTORY OF PRESENT ILLNESS: Patient is a resident of [facility]. Patient himself is unable to contribute much to the history and physical. Patient has a history of Down syndrome. According to staff at [facility], patient began to have low-grade fevers yesterday, 11/08/2019. Laboratory studies revealed leukocytosis, thrombocytopenia, and renal failure. Patient was transferred to [facility] emergency room for evaluation. Patient was admitted for fever and leukocytosis to rule out COVID-19 syndrome. REVIEW OF SYSTEMS: Unable to assess secondary to patient's mental status. PAST MEDICAL HISTORY: Significant for: 1. Asthma. 2. Hypothyroidism. 3. Obesity. 4. Down syndrome. PAST SURGICAL HISTORY: Denies. CURRENT MEDICATIONS: 1. Tylenol 650 mg p.o. q.4h. p.r.n. 2. Albuterol 2.5 mg nebulized q.4h. p.r.n. 3. Budesonide 0.5 mg nebulized q.4h. p.r.n. 4. Vitamin B12 1000 mcg 1 tablet p.o. daily. 5. Levothyroxine 150 mcg 1 tablet p.o. daily. 6. Multivitamin p.o. daily. 7. Simvastatin 10 mg p.o. at bedtime. 8. Vitamin D3 1000 units p.o. daily. ALLERGIES: To allopurinol. SOCIAL HISTORY: Patient is single. He is a resident of [facility]. Patient denies tobacco or alcohol use. PHYSICAL EXAMINATION: VITAL SIGNS: Temperature 103.7, respirations 20, pulse 108, blood pressure 126/60. GENERAL: Patient is a well-developed, well-nourished obese male, in no apparent distress. HEENT: Eyes, pupils are equal and responsive to light and accommodation. Extraocular movements are intact. NECK: Supple without lymphadenopathy. CHEST: Lungs are clear to auscultation bilaterally without wheezes or rales. CARDIOVASCULAR: Regular rhythm and rate. S1, S2 are normal without murmurs, rubs, or gallops. ABDOMEN: Soft, nontender, nondistended. Positive bowel sounds. No evidence of hepatosplenomegaly. Currently, no rebound or guarding noted. EXTREMITIES: Negative for clubbing, cyanosis, or edema. RECTAL/GENITAL: Not performed. NEUROLOGIC: Cranial nerves II through XII are grossly intact without focal deficits. Motor strength is 5/5 bilaterally. Deep tendon reflexes are 2+ plantar. LABORATORY STUDIES: WBC 26.9, hemoglobin 13.5, hematocrit 45.6, platelets 109,000. Sodium 158, potassium 4.2, chloride 116, CO2 34, BUN 39, creatinine 2.4, glucose 206. Troponin 0.208. BNP elevated at 3705. Urinalysis showed 4+ protein, 4+ blood, nitrite positive, 3+ leukocyte esterase, rbc's 15 to 20, and wbc's too numerous to count. Chest x-ray was reported as no acute disease. ASSESSMENT: This is a 69-year-old male. 1. Urinary tract infection. 2. Fever. 3. Leukocytosis. 4. Thrombocytopenia. 5. Renal failure. 6. Asthma. 7. Hypothyroidism. 8. Obesity. 9. Down syndrome. TREATMENT: 1. Urinary tract infection/fever. Patient has been placed empirically on vancomycin and Zosyn to cover methicillin-resistant Staph aureus. An Infectious Disease consultation has been obtained with Dr. Fuentes. Urine culture is pending. Blood cultures are pending. We will follow recommendations of Infectious Disease. 2. Asthma. A Pulmonary consultation has been obtained with Dr. Jesús Mustafa. COVID-19 is high on the differential given patient had fever. Patient himself is unable to contribute to the history and physical. A COVID-19 swab is pending. 3. Hypothyroidism. Continue Levoxyl as above. 4. Down syndrome. 5. Obesity. 6. Thrombocytopenia. 7. Leukocytosis. 8. Renal failure. A Nephrology consultation has been obtained with Dr. Alexis Villagomez. Luis Rodriguez M.D. DR: KIT JOB#: [id number] CC:
--- NOTE | 2019-11-09 21:00 | Consultation ---
DATE OF CONSULTATION: 11/09/2019 CARDIOLOGY CONSULTATION CONSULTING PHYSICIAN: Tiffanie Michel MD. The patient is seen as a coverage for Irving Hoffman MD. PATIENT ID: This is a 69-year-old black male. REASON FOR ADMISSION: Abnormal labs. He also had episodes of arrhythmias. HISTORY OF PRESENT ILLNESS: The patient was brought from long term where he resides. The patient has Down syndrome and he is disabled because of that. He also had apparently had some chills. The patient is unclear if he had any cardiac symptoms. He is unable to give any history. PAST MEDICAL HISTORY: In addition to above, significant for diabetes and hypothyroidism. REVIEW OF SYSTEMS: Unavailable as the patient is bedridden and he is nonverbal. PHYSICAL EXAMINATION: GENERAL: The patient appears to be slightly agitated and might be in mild distress. VITAL SIGNS: His blood pressure earlier was low blood pressure was 78/45, however, apparently he was admitted yesterday and he had a temperature of 101.8 and blood pressure was 126/68. Right now, his blood pressure is 110/70, his heart rate is 70, his oxygen saturation is 96% on 2 L, and his temperature is normal. HEENT: PERRLA. EOMI. He has bad dentition. His appearance is typical for Down syndrome. NECK: Neck veins, unable to evaluate. Carotid upstroke is normal. LUNGS: Bilaterally clear to auscultation. HEART: Regular. PMI is not palpable. There is slightly diminished S1. The heart is regular. Quiet S1. ABDOMEN: Slightly distended. Positive bowel sounds. Nontender. EXTREMITIES: Lower extremities, no acute obvious abnormalities of his skin. Distal pulses palpable. LABORATORY AND DIAGNOSTIC DATA: His laboratory data all reviewed. His white count is 28.9. His hemoglobin is 11.6. His platelets are 77,000 today; yesterday was 109,000. His chemistry revealed sodium 156; in comparison to yesterday, it is slightly better and it was 158 yesterday. His creatinine was 2.4 yesterday and today it is 2.2. His troponin 0.146 and his BNP level is 2654. His urinalysis revealed abnormal urine compatible with urinary tract infection and his urine culture was negative. His chest x-ray showed mild cardiomegaly. His ECG reveals at present time, the patient is in sinus rhythm. There is a right bundle-branch block and left anterior hemiblock and Q-waves in the lateral leads suggestive either of old CO or just abnormal conduction. There is one ECG in the chart, which shows heart rate of 148 beats per minute and is either flutter or tachycardia, most likely flutter or sinus tachycardia. IMPRESSION AND RECOMMENDATION: The patient's history is very limited. It appears that he has urosepsis. The patient also has very abnormal ECG, which could be potentially due to old CO that needs to be checked with echocardiogram. Actually, the patient was hypotensive earlier today, but now he is improving and we should be careful while giving calcium-channel blockers. He should be hydrated that he has appropriately is and the general impression that he has urosepsis and troponin is due to type 2 myocardial infarction. His BNP level is most likely due to reflection of his acute inflammatory syndrome due to urosepsis and I am definite that this patient is not in congestive heart failure; however, I am going to order echocardiogram just to make sure that this patient does not have old myocardial infarction and Dr. Hoffman is going to see him tomorrow. Thank you very much. Tiffanie Michel M.D. : Abiodun JOB#: [id number] CC:
[2019-11-10] VITALS (34 sets, daily range): BP systolic 67–119; BP diastolic 30–94
[2019-11-10] MEDS: Zoysn 3.37gm in NS 100ML IVPB SCH ×2 (05:50→14:11)
[2019-11-10 07:09] LABS: ALANINE AMINOTRANSFERASE 32 U/L (12-78); ALBUMIN 1.7 G/DL (3.4-5.0); ALBUMIN/GLOBULIN RATIO 0.4 (1.0-2.7); ALKALINE PHOSPHATASE 56 U/L (46-116); ANION GAP 4 mmol/L (5-15); ASPARTATE AMINO TRANSFERASE 31 U/L (15-37); BILIRUBIN,TOTAL 0.4 MG/DL (0.2-1.0); BLOOD UREA NITROGEN 32 mg/dL (7-18); CALCIUM 8.2 MG/DL (8.5-10.1); CARBON DIOXIDE 33 MMOL/L (21-32); CHLORIDE 115 MMOL/L (98-107); FERRITIN 507 NG/ML (8-388); HEMATOCRIT 37.2 % (42.0-52.0); HEMOGLOBIN 12.4 G/DL (14.2-18.0); MEAN CORPUSCULAR VOLUME 100 FL (80-99); PLATELET COUNT 35 K/UL (150-450); POTASSIUM 3.8 MMOL/L (3.5-5.1); RED BLOOD COUNT 3.72 M/UL (4.70-6.10); RED CELL DISTRIBUTION WIDTH 13.8 % (11.6-14.8); SODIUM 151 MMOL/L (136-145); WHITE BLOOD COUNT 20.7 K/UL (4.8-10.8)
[2019-11-10 07:18] LABS: % IRON SATURATION 31 % (15-50); IRON 31 ug/dL (50-175); TOTAL IRON BINDING CAPACITY 99 ug/dL (250-450)
[2019-11-10 07:42] LABS: CHOLESTEROL 108 MG/DL (< 200); CREATINE KINASE 161 U/L (26-308); GAMMA GLUTAMYL TRANSPEPTIDASE 8 U/L (5-85); HDL CHOLESTEROL 13 MG/DL (40-60); PHOSPHORUS 2.1 MG/DL (2.5-4.9); TRIGLYCERIDES 164 MG/DL (30-150)
[2019-11-10] MEDS: Enoxaparin 40mg Inj SUBQ SCH (09:00)
[2019-11-10] MEDS: Pantoprazole Inj IVP SCH ×2 (09:09→21:00)
[2019-11-10] MEDS: Docusate 100mg cap ORAL SCH ×3 (09:09→17:10)
[2019-11-10] MEDS ORDERED: Vancomycin 1.5gm/NS Premix IVPB ONE (09:30)
[2019-11-10] MEDS ORDERED: Vancomycin 1.5gm/NS Premix 275 ML IVPB ONE (09:30)
[2019-11-10] MEDS ORDERED: Metoprolol Tartrate 2.5 MG in D5W 55 ML IVPB ONE ×2 (10:45→12:00)
[2019-11-10] MEDS ORDERED: 1/2 NS IV ONE (11:45)
--- NOTE | 2019-11-10 12:32 | Pulmonology Progress Note ---
Subjective ROS Limited/Unobtainable: No Allergies: Coded Allergies: ALLOPURINOL (Verified Allergy, Unknown, 12/22/15) Objective Last 24 Hour Vital Signs Date Time Temp Pulse Resp B/P (MAP) Pulse Ox O2 Delivery O2 Flow Rate FiO2 11/10/19 11:55 96.6 130 20 85/49 (61) 96 11/10/19 09:00 Nasal Cannula 2.0 11/10/19 08:00 130 11/10/19 08:00 99.0 131 22 90/57 (68) 95 11/10/19 04:00 63 11/10/19 04:00 99.1 68 22 102/53 (69) 96 11/10/19 00:00 137 11/10/19 00:00 98.5 71 21 114/59 (77) 94 11/09/19 21:00 Nasal Cannula 2.0 11/09/19 20:00 71 11/09/19 20:00 98.6 68 19 111/68 (82) 95 11/09/19 16:00 98.6 75 18 108/71 (83) 98 11/09/19 16:00 75 11/09/19 15:48 104/69 Intake and Output 11/09/19 11/10/19 19:00 07:00 Intake Total 100 ml 800 ml Output Total 650 ml Balance 100 ml 150 ml Intake Oral 0 ml IV Total 100 ml 800 ml Output Urine Total 650 ml General Appearance: WD/WN HEENT: normocephalic, atraumatic Respiratory: chest wall non-tender, lungs clear, normal breath sounds Cardiovascular: normal peripheral pulses Abdomen: normal bowel sounds, soft, non tender Genitourinary: normal external genitalia Skin: no rash 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 grossly normal Microbiology Date/Time Source Procedure Growth Status 11/08/19 19:45 Blood Blood Culture - Preliminary Resulted 11/08/19 19:30 Blood Blood Culture - Preliminary Resulted 11/08/19 20:08 Nasal Nares MRSA Culture - Final Staphylococcus Aureus - Mrsa Complete 11/08/19 19:45 Urine,Clean Catch Urine Culture - Preliminary Gram Negative Bacillus 1 Resulted 11/08/19 20:08 Rectum Received Laboratory Tests 11/10/19 04:00: White Blood Count 20.7H, Red Blood Count 3.72L, Hemoglobin 12.4L, Hematocrit 37.2L, Mean Corpuscular Volume 100H, Mean Corpuscular Hemoglobin 33.3H, Mean Corpuscular Hemoglobin Concent 33.2, Red Cell Distribution Width 13.8, Platelet Count 35#L, Mean Platelet Volume 9.2, Neutrophils (%) (Auto) , Lymphocytes (%) ( Auto) , Monocytes (%) (Auto) , Eosinophils (%) (Auto) , Basophils (%) (Auto) , Differential Total Cells Counted 100, Neutrophils % (Manual) 92H, Lymphocytes % (Manual) 4L, Monocytes % (Manual) 4, Eosinophils % (Manual) 0, Basophils % ( Manual) 0, Band Neutrophils 0, Platelet Estimate DecreasedL, Platelet Morphology , Clumped Platelets Occasional, Macrocytosis 1+, Sodium Level 151H, Potassium Level 3.8, Chloride Level 115H, Carbon Dioxide Level 33H, Anion Gap 4L , Blood Urea Nitrogen 32H, Creatinine 2.0H, Estimat Glomerular Filtration Rate 40.5, Glucose Level 195H, Hemoglobin A1c 7.5H, Uric Acid 6.0, Calcium Level 8.2L , Phosphorus Level 2.1L, Magnesium Level 1.9, Iron Level 31L, Total Iron Binding Capacity 99L, Percent Iron Saturation 31, Unsaturated Iron Binding 68L, Ferritin 507H, Total Bilirubin 0.4, Gamma Glutamyl Transpeptidase 8, Aspartate Amino Transf (AST/SGOT) 31, Alanine Aminotransferase (ALT/SGPT) 32, Alkaline Phosphatase 56, Total Creatine Kinase 161, Troponin I 0.075H, C-Reactive Protein , Quantitative 20.6H, Pro-B-Type Natriuretic Peptide 2512H, Total Protein 6.2L, Albumin 1.7L, Globulin 4.5, Albumin/Globulin Ratio 0.4L, Triglycerides Level 164H, Cholesterol Level 108, LDL Cholesterol 61, HDL Cholesterol 13L, Cholesterol/HDL Ratio 8.3H, Vitamin B12 Level 750, Folate 10.0, Thyroid Stimulating Hormone (TSH) 17.989H, Free Thyroxine 0.54L, Free Triiodothyronine 0.5L, Random Vancomycin Level 7.9 Current Medications Medications (Trade) Dose Ordered Sig/Femi Route PRN Reason Start Time Stop Time Status Last Admin Dose Admin Aspirin (ASA) 325 mg DAILY ORAL 11/09/19 14:45 12/24/19 14:44 11/10/19 09:09 Dextrose 1,000 ml @ 100 mls/hr Q10H IV 5/25/20 15:00 12/09/19 14:59 11/09/19 17:17 Docusate Sodium (Colace) 100 mg THREE TIMES A DAY ORAL 11/09/19 18:00 12/09/19 17:59 11/10/19 09:09 Enoxaparin Sodium (Lovenox) 40 mg DAILY SUBQ 11/09/19 09:00 02/07/20 08:59 Levothyroxine Sodium (Synthroid) 50 mcg DAILY IV 11/10/19 09:30 12/10/19 09:29 11/10/19 09:10 Metoprolol Tartrate 2.5 mg/ Dextrose 57.5 ml @ 130 mls/hr ONCE ONCE IVPB 11/10/19 12:00 11/10/19 12:26 Midodrine (Pro-Amatine) 2.5 mg THREE TIMES A DAY ORAL 11/09/19 14:45 02/07/20 14:44 11/10/19 09:09 Nitroglycerin (Ntg) 1 patch Q24H TDERMAL 11/09/19 16:00 12/09/19 15:59 11/09/19 15:48 Pantoprazole (Protonix) 40 mg EVERY 12 HOURS IVP 11/09/19 14:45 12/09/19 14:44 11/10/19 09:09 Piperacillin Sod/ Tazobactam Sod 3.375 gm/Sodium Chloride 110 ml @ 27.5 mls/hr EVERY 8 HOURS IVPB 11/09/19 06:00 11/14/19 05:59 11/10/19 05:50 Sodium Chloride 1,000 ml @ 999 mls/hr Q1H1M ONCE IVLG 11/10/19 12:30 11/10/19 13:30 Vancomycin HCl (Vanco rx to dose) 1 ea DAILY PRN MISC Rx to dose 11/09/19 11:15 12/09/19 08:59 Assessment/Plan Problems: (1) Severe sepsis (2) Dehydration (3) Hypotension (4) COPD (chronic obstructive pulmonary disease) (5) Hypothyroidism (6) Down syndrome (7) DNR (do not resuscitate) (8) senior living resident Assessment/Plan iv fluids iv abx NS bolus to stabilize BP add Hydrocortisone for empiric treatment of septic shock broaden antibiotics respiratory treatment DNR is appropriate Jesús Mustafa MD November 10, 2019 12:32
--- NOTE | 2019-11-10 13:20 | Nephrology Progress Note ---
Assessment/Plan Problem List: (1) Renal failure (ARF), acute on chronic (2) Dehydration (3) Severe sepsis (4) Down syndrome (5) Hypothyroidism (6) Hypotension (7) DMII (diabetes mellitus, type 2) Assessment Renal failure most likely acute on chronic Renal failure has a major component of dehydration due to hypernatremia Sepsis and leukocytosis, possible pneumonia Anemia Elevated troponin 4+ proteinuria, UTI Suspected COVID-19 infection Diabetes mellitus Obstructive sleep apnea Down syndrome Hypothyroidism DNR/DNI Plan Synthroid IV Hydrate with D5W ST eval Monitor renal parameters Avoid nephrotoxic's Antibiotics Thyroid function tests Keep the blood pressure and blood sugar in check Serial troponin I and EKG Aspirin and nitrates Per orders Subjective ROS Limited/Unobtainable: No Constitutional: Reports: malaise Objective Objective Last 24 Hour Vital Signs Date Time Temp Pulse Resp B/P (MAP) Pulse Ox O2 Delivery O2 Flow Rate FiO2 11/10/19 12:00 129 11/10/19 11:55 96.6 130 20 85/49 (61) 96 11/10/19 09:00 Nasal Cannula 2.0 11/10/19 08:00 130 11/10/19 08:00 99.0 131 22 90/57 (68) 95 11/10/19 04:00 63 11/10/19 04:00 99.1 68 22 102/53 (69) 96 11/10/19 00:00 137 11/10/19 00:00 98.5 71 21 114/59 (77) 94 11/09/19 21:00 Nasal Cannula 2.0 11/09/19 20:00 71 11/09/19 20:00 98.6 68 19 111/68 (82) 95 11/09/19 16:00 98.6 75 18 108/71 (83) 98 11/09/19 16:00 75 11/09/19 15:48 104/69 Intake and Output 11/09/19 11/10/19 19:00 07:00 Intake Total 100 ml 800 ml Output Total 650 ml Balance 100 ml 150 ml Intake Oral 0 ml IV Total 100 ml 800 ml Output Urine Total 650 ml Laboratory Tests 11/10/19 04:00: White Blood Count 20.7H, Red Blood Count 3.72L, Hemoglobin 12.4L, Hematocrit 37.2L, Mean Corpuscular Volume 100H, Mean Corpuscular Hemoglobin 33.3H, Mean Corpuscular Hemoglobin Concent 33.2, Red Cell Distribution Width 13.8, Platelet Count 35#L, Mean Platelet Volume 9.2, Neutrophils (%) (Auto) , Lymphocytes (%) ( Auto) , Monocytes (%) (Auto) , Eosinophils (%) (Auto) , Basophils (%) (Auto) , Differential Total Cells Counted 100, Neutrophils % (Manual) 92H, Lymphocytes % (Manual) 4L, Monocytes % (Manual) 4, Eosinophils % (Manual) 0, Basophils % ( Manual) 0, Band Neutrophils 0, Platelet Estimate DecreasedL, Platelet Morphology , Clumped Platelets Occasional, Macrocytosis 1+, Sodium Level 151H, Potassium Level 3.8, Chloride Level 115H, Carbon Dioxide Level 33H, Anion Gap 4L , Blood Urea Nitrogen 32H, Creatinine 2.0H, Estimat Glomerular Filtration Rate 40.5, Glucose Level 195H, Hemoglobin A1c 7.5H, Uric Acid 6.0, Calcium Level 8.2L , Phosphorus Level 2.1L, Magnesium Level 1.9, Iron Level 31L, Total Iron Binding Capacity 99L, Percent Iron Saturation 31, Unsaturated Iron Binding 68L, Ferritin 507H, Total Bilirubin 0.4, Gamma Glutamyl Transpeptidase 8, Aspartate Amino Transf (AST/SGOT) 31, Alanine Aminotransferase (ALT/SGPT) 32, Alkaline Phosphatase 56, Total Creatine Kinase 161, Troponin I 0.075H, C-Reactive Protein , Quantitative 20.6H, Pro-B-Type Natriuretic Peptide 2512H, Total Protein 6.2L, Albumin 1.7L, Globulin 4.5, Albumin/Globulin Ratio 0.4L, Triglycerides Level 164H, Cholesterol Level 108, LDL Cholesterol 61, HDL Cholesterol 13L, Cholesterol/HDL Ratio 8.3H, Vitamin B12 Level 750, Folate 10.0, Thyroid Stimulating Hormone (TSH) 17.989H, Free Thyroxine 0.54L, Free Triiodothyronine 0.5L, Random Vancomycin Level 7.9 Height (Feet): 5 Height (Inches): 3.00 Weight (Pounds): 218 General Appearance: mild distress Cardiovascular: tachycardia Respiratory/Chest: decreased breath sounds Abdomen: distended Alexis Villagomez MD November 10, 2019 13:20
[2019-11-10] MEDS ORDERED: Hydrocortisone 100mg Inj IV SCH (14:00)
--- NOTE | 2019-11-10 14:35 | Cardiology Progress Note ---
Assessment/Plan Assessment/Plan cardiology cc note dicated pressors icu trasfetr no cpr no intubation pressor medication will be admsintered [id number] Objective Last 24 Hour Vital Signs Date Time Temp Pulse Resp B/P (MAP) Pulse Ox O2 Delivery O2 Flow Rate FiO2 11/10/19 13:51 57 77/39 (52) 100 11/10/19 13:36 53 74/49 (57) 100 11/10/19 12:00 129 11/10/19 11:55 96.6 130 20 85/49 (61) 96 11/10/19 09:00 Nasal Cannula 2.0 11/10/19 08:00 130 11/10/19 08:00 99.0 131 22 90/57 (68) 95 11/10/19 04:00 63 11/10/19 04:00 99.1 68 22 102/53 (69) 96 11/10/19 00:00 137 11/10/19 00:00 98.5 71 21 114/59 (77) 94 11/09/19 21:00 Nasal Cannula 2.0 11/09/19 20:00 71 11/09/19 20:00 98.6 68 19 111/68 (82) 95 11/09/19 16:00 98.6 75 18 108/71 (83) 98 11/09/19 16:00 75 11/09/19 15:48 104/69 Intake and Output 11/09/19 11/10/19 19:00 07:00 Intake Total 100 ml 800 ml Output Total 650 ml Balance 100 ml 150 ml Intake Oral 0 ml IV Total 100 ml 800 ml Output Urine Total 650 ml Laboratory Tests Test 11/10/19 04:00 White Blood Count 20.7 K/UL (4.8-10.8) H Red Blood Count 3.72 M/UL (4.70-6.10) L Hemoglobin 12.4 G/DL (14.2-18.0) L Hematocrit 37.2 % (42.0-52.0) L Mean Corpuscular Volume 100 FL (80-99) H Mean Corpuscular Hemoglobin 33.3 PG (27.0-31.0) H Mean Corpuscular Hemoglobin Concent 33.2 G/DL (32.0-36.0) Red Cell Distribution Width 13.8 % (11.6-14.8) Platelet Count 35 K/UL (150-450) #L Mean Platelet Volume 9.2 FL (6.5-10.1) Neutrophils (%) (Auto) % (45.0-75.0) Lymphocytes (%) (Auto) % (20.0-45.0) Monocytes (%) (Auto) % (1.0-10.0) Eosinophils (%) (Auto) % (0.0-3.0) Basophils (%) (Auto) % (0.0-2.0) Differential Total Cells Counted 100 Neutrophils % (Manual) 92 % (45-75) H Lymphocytes % (Manual) 4 % (20-45) L Monocytes % (Manual) 4 % (1-10) Eosinophils % (Manual) 0 % (0-3) Basophils % (Manual) 0 % (0-2) Band Neutrophils 0 % (0-8) Platelet Estimate Decreased L Platelet Morphology Clumped Platelets Occasional Macrocytosis 1+ Sodium Level 151 MMOL/L (136-145) H Potassium Level 3.8 MMOL/L (3.5-5.1) Chloride Level 115 MMOL/L (98-107) H Carbon Dioxide Level 33 MMOL/L (21-32) H Anion Gap 4 mmol/L (5-15) L Blood Urea Nitrogen 32 mg/dL (7-18) H Creatinine 2.0 MG/DL (0.55-1.30) H Estimat Glomerular Filtration Rate 40.5 mL/min (>60) Glucose Level 195 MG/DL (74-106) H Hemoglobin A1c 7.5 % (4.3-6.0) H Uric Acid 6.0 MG/DL (2.6-7.2) Calcium Level 8.2 MG/DL (8.5-10.1) L Phosphorus Level 2.1 MG/DL (2.5-4.9) L Magnesium Level 1.9 MG/DL (1.8-2.4) Iron Level 31 ug/dL (50-175) L Total Iron Binding Capacity 99 ug/dL (250-450) L Percent Iron Saturation 31 % (15-50) Unsaturated Iron Binding 68 ug/dL (112-346) L Ferritin 507 NG/ML (8-388) H Total Bilirubin 0.4 MG/DL (0.2-1.0) Gamma Glutamyl Transpeptidase 8 U/L (5-85) Aspartate Amino Transf (AST/SGOT) 31 U/L (15-37) Alanine Aminotransferase (ALT/SGPT) 32 U/L (12-78) Alkaline Phosphatase 56 U/L (46-116) Total Creatine Kinase 161 U/L (26-308) Troponin I 0.075 ng/mL (0.000-0.056) C-Reactive Protein, Quantitative 20.6 mg/dL (0.00-0.90) H Pro-B-Type Natriuretic Peptide 2512 pg/mL (0-125) H Total Protein 6.2 G/DL (6.4-8.2) L Albumin 1.7 G/DL (3.4-5.0) L Globulin 4.5 g/dL Albumin/Globulin Ratio 0.4 (1.0-2.7) L Triglycerides Level 164 MG/DL (30-150) H Cholesterol Level 108 MG/DL (< 200) LDL Cholesterol 61 mg/dL (<100) HDL Cholesterol 13 MG/DL (40-60) L Cholesterol/HDL Ratio 8.3 (3.3-4.4) H Vitamin B12 Level 750 PG/ML (193-986) Folate 10.0 NG/ML (8.6-58.9) Thyroid Stimulating Hormone (TSH) 17.989 uiU/mL (0.358-3.740) Free Thyroxine 0.54 NG/DL (0.76-1.46) L Free Triiodothyronine 0.5 pg/mL (2.3-4.2) L Random Vancomycin Level 7.9 ug/mL Microbiology Date/Time Source Procedure Growth Status 11/08/19 19:45 Blood Blood Culture - Preliminary Resulted 11/08/19 19:30 Blood Blood Culture - Preliminary Resulted 11/08/19 20:08 Nasal Nares MRSA Culture - Final Staphylococcus Aureus - Mrsa Complete 11/08/19 19:45 Urine,Clean Catch Urine Culture - Preliminary Gram Negative Bacillus 1 Resulted 11/08/19 20:08 Rectum Received Irving Hoffman MD November 10, 2019 14:35
[2019-11-10] MEDS ORDERED: Norepinephrine 4mg/NS Premix 250 ML IV SCH (14:38)
[2019-11-10] MEDS ORDERED: Vancomycin 1.5gm/NS Premix 275 ML IVPB SCH (15:00)
[2019-11-10] MEDS: Nitroglycerin Patch 0.1mg/hr TDERMAL SCH (16:00)
--- NOTE | 2019-11-10 17:05 | Internal Med Progress Note ---
Subjective Date of Service: November 10, 2019 Physician Name Luis Rodriguez Attending Physician Davon Falk MD Current Medications Medications (Trade) Dose Ordered Sig/Femi Route PRN Reason Start Time Stop Time Status Last Admin Dose Admin Aspirin (ASA) 325 mg DAILY ORAL 11/09/19 14:45 12/24/19 14:44 11/10/19 09:09 Dextrose 1,000 ml @ 100 mls/hr Q10H IV 11/09/19 15:00 12/09/19 14:59 11/09/19 17:17 Docusate Sodium (Colace) 100 mg THREE TIMES A DAY ORAL 11/09/19 18:00 12/09/19 17:59 11/10/19 13:14 Enoxaparin Sodium (Lovenox) 40 mg DAILY SUBQ 11/09/19 09:00 02/07/20 08:59 Hydrocortisone (Solu-CORTEF) 100 mg EVERY 8 HOURS IV 11/10/19 14:00 02/08/20 13:59 11/10/19 13:14 Levothyroxine Sodium (Synthroid) 50 mcg DAILY IV 11/10/19 09:30 12/10/19 09:29 11/10/19 09:10 Midodrine (Pro-Amatine) 2.5 mg THREE TIMES A DAY ORAL 11/09/19 14:45 02/07/20 14:44 11/10/19 13:13 Nitroglycerin (Ntg) 1 patch Q24H TDERMAL 11/09/19 16:00 12/09/19 15:59 11/09/19 15:48 Norepinephrine Bitartrate 250 ml @ 0 mls/hr Q24H IV 11/10/19 14:38 02/08/20 14:37 Pantoprazole (Protonix) 40 mg EVERY 12 HOURS IVP 11/09/19 14:45 12/09/19 14:44 11/10/19 09:09 Piperacillin Sod/ Tazobactam Sod 3.375 gm/Sodium Chloride 110 ml @ 27.5 mls/hr EVERY 8 HOURS IVPB 11/09/19 06:00 11/14/19 05:59 11/10/19 14:11 Vancomycin HCl (Vanco rx to dose) 1 ea DAILY PRN MISC Rx to dose 11/09/19 11:15 12/09/19 08:59 Vancomycin/Sodium Chloride 275 ml @ 137.5 mls/ hr ONCE IVPB 11/10/19 15:00 11/10/19 18:00 Allergies: Coded Allergies: ALLOPURINOL (Verified Allergy, Unknown, 12/22/15) ROS Limited/Unobtainable: Yes Subjective 69YO M with Down's syndrome admitted with fever. Now UTI and sepsis. Cover for Int [place]-Dr Falk Objective Last Vital Signs Date Time Temp Pulse Resp B/P (MAP) Pulse Ox O2 Delivery O2 Flow Rate FiO2 11/10/19 16:00 132 11/10/19 16:00 77/39 11/10/19 16:00 97.3 20 98 11/10/19 09:00 Nasal Cannula 2.0 Laboratory Tests Test 11/10/19 04:00 White Blood Count 20.7 K/UL (4.8-10.8) H Red Blood Count 3.72 M/UL (4.70-6.10) L Hemoglobin 12.4 G/DL (14.2-18.0) L Hematocrit 37.2 % (42.0-52.0) L Mean Corpuscular Volume 100 FL (80-99) H Mean Corpuscular Hemoglobin 33.3 PG (27.0-31.0) H Mean Corpuscular Hemoglobin Concent 33.2 G/DL (32.0-36.0) Red Cell Distribution Width 13.8 % (11.6-14.8) Platelet Count 35 K/UL (150-450) #L Mean Platelet Volume 9.2 FL (6.5-10.1) Neutrophils (%) (Auto) % (45.0-75.0) Lymphocytes (%) (Auto) % (20.0-45.0) Monocytes (%) (Auto) % (1.0-10.0) Eosinophils (%) (Auto) % (0.0-3.0) Basophils (%) (Auto) % (0.0-2.0) Differential Total Cells Counted 100 Neutrophils % (Manual) 92 % (45-75) H Lymphocytes % (Manual) 4 % (20-45) L Monocytes % (Manual) 4 % (1-10) Eosinophils % (Manual) 0 % (0-3) Basophils % (Manual) 0 % (0-2) Band Neutrophils 0 % (0-8) Platelet Estimate Decreased L Platelet Morphology Clumped Platelets Occasional Macrocytosis 1+ Sodium Level 151 MMOL/L (136-145) H Potassium Level 3.8 MMOL/L (3.5-5.1) Chloride Level 115 MMOL/L (98-107) H Carbon Dioxide Level 33 MMOL/L (21-32) H Anion Gap 4 mmol/L (5-15) L Blood Urea Nitrogen 32 mg/dL (7-18) H Creatinine 2.0 MG/DL (0.55-1.30) H Estimat Glomerular Filtration Rate 40.5 mL/min (>60) Glucose Level 195 MG/DL (74-106) H Hemoglobin A1c 7.5 % (4.3-6.0) H Uric Acid 6.0 MG/DL (2.6-7.2) Calcium Level 8.2 MG/DL (8.5-10.1) L Phosphorus Level 2.1 MG/DL (2.5-4.9) L Magnesium Level 1.9 MG/DL (1.8-2.4) Iron Level 31 ug/dL (50-175) L Total Iron Binding Capacity 99 ug/dL (250-450) L Percent Iron Saturation 31 % (15-50) Unsaturated Iron Binding 68 ug/dL (112-346) L Ferritin 507 NG/ML (8-388) H Total Bilirubin 0.4 MG/DL (0.2-1.0) Gamma Glutamyl Transpeptidase 8 U/L (5-85) Aspartate Amino Transf (AST/SGOT) 31 U/L (15-37) Alanine Aminotransferase (ALT/SGPT) 32 U/L (12-78) Alkaline Phosphatase 56 U/L (46-116) Total Creatine Kinase 161 U/L (26-308) Troponin I 0.075 ng/mL (0.000-0.056) C-Reactive Protein, Quantitative 20.6 mg/dL (0.00-0.90) H Pro-B-Type Natriuretic Peptide 2512 pg/mL (0-125) H Total Protein 6.2 G/DL (6.4-8.2) L Albumin 1.7 G/DL (3.4-5.0) L Globulin 4.5 g/dL Albumin/Globulin Ratio 0.4 (1.0-2.7) L Triglycerides Level 164 MG/DL (30-150) H Cholesterol Level 108 MG/DL (< 200) LDL Cholesterol 61 mg/dL (<100) HDL Cholesterol 13 MG/DL (40-60) L Cholesterol/HDL Ratio 8.3 (3.3-4.4) H Vitamin B12 Level 750 PG/ML (193-986) Folate 10.0 NG/ML (8.6-58.9) Thyroid Stimulating Hormone (TSH) 17.989 uiU/mL (0.358-3.740) Free Thyroxine 0.54 NG/DL (0.76-1.46) L Free Triiodothyronine 0.5 pg/mL (2.3-4.2) L Random Vancomycin Level 7.9 ug/mL Microbiology Date/Time Source Procedure Growth Status 11/08/19 19:45 Blood Blood Culture - Preliminary Resulted 11/08/19 19:30 Blood Blood Culture - Preliminary Resulted 11/08/19 20:08 Nasal Nares MRSA Culture - Final Staphylococcus Aureus - Mrsa Complete 11/08/19 19:45 Urine,Clean Catch Urine Culture - Preliminary Gram Negative Bacillus 1 Resulted 11/08/19 20:08 Rectum Received Intake and Output 11/09/19 11/10/19 19:00 07:00 Intake Total 100 ml 800 ml Output Total 650 ml Balance 100 ml 150 ml Intake Oral 0 ml IV Total 100 ml 800 ml Output Urine Total 650 ml Objective PHYSICAL EXAMINATION: GENERAL: Patient is a well-developed, well-nourished obese male, in no apparent distress. HEENT: Eyes, pupils are equal and responsive to light and accommodation. Extraocular movements are intact. NECK: Supple without lymphadenopathy. CHEST: Lungs are clear to auscultation bilaterally without wheezes or rales. CARDIOVASCULAR: Regular rhythm and rate. S1, S2 are normal without murmurs, rubs, or gallops. ABDOMEN: Soft, nontender, nondistended. Positive bowel sounds. No evidence of hepatosplenomegaly. Currently, no rebound or guarding noted. EXTREMITIES: Negative for clubbing, cyanosis, or edema. RECTAL/GENITAL: Not performed. NEUROLOGIC: Cranial nerves II through XII are grossly intact without focal deficits. Motor strength is 5/5 bilaterally. Deep tendon reflexes are 2+ plantar. Assessment/Plan Assessment/Plan ASSESSMENT: This is a 69-year-old male. 1. Urinary tract infection=gram neg criselda 2. Fever. 3. Leukocytosis. 4. Thrombocytopenia. 5. Renal failure. 6. Asthma. 7. Hypothyroidism. 8. Obesity. 9. Down syndrome. 10. severe sepsis=gram pos cocci TREATMENT: 1. Urinary tract infection/fever. ABX=vancomycin and Zosyn. Infectious Disease = Dr. Fuentes. Urine culture =gram neg criselda. 2. Asthma. A Pulmonary consultation has been obtained with Dr. Jesús Mustafa. COVID-19 is high on the differential given patient had fever to 103F. Patient himself is unable to contribute to the history and physical. A COVID-19 swab is pending. 3. Hypothyroidism. Continue Levoxyl as above. 4. Down syndrome. 5. Obesity. 6. Thrombocytopenia. 7. Leukocytosis. 8. Renal failure. A Nephrology consultation has been obtained with Dr. Alexis Villagomez. 9. DNI/DNR-see Luis Pathak MD November 10, 2019 17:05
[2019-11-10] MEDS ORDERED: Lidocaine 1% Plain 30 ml INJ ONE (17:30)
[2019-11-10] MEDS ORDERED: Lidocaine 1% MPF 10mg/ml 5ml ONE (17:39)
--- NOTE | 2019-11-10 17:56 | Emergency Room Report ---
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 COVID-19 Screening: PUI COVID-19 COVID-19 Testing Source: unk resuts Patient History Past Medical History: see triage record Reviewed Nursing Documentation: PMH: Agreed; PSxH: Agreed Nursing Documentation-PMH Past Medical History Deferred: Pt Cognitively Impaired Past Medical History: No History, Except For Hx Cardiac Problems: No Hx Diabetes: Yes - Type II, Hypothyriodism Hx Cancer: No Review of Systems All Other Systems: negative except mentioned in HPI Physical Exam Vital Signs Date Time Temp Pulse Resp B/P (MAP) Pulse Ox O2 Delivery O2 Flow Rate FiO2 11/08/19 19:34 97.9 68 20 126/68 (87) 97 Nasal Cannula 3.0 General Appearance: severe distress Head: normocephalic, atraumatic ENT: hearing grossly normal, normal voice Neck: full range of motion, supple Respiratory: no respiratory distress, speaking full sentences Neurologic: responsive Skin: no rash Procedures Critical Care Time Critical Care Time Given the critical condition in which the patient arrived, the patient was immediately assessed by myself and the nurse, and cardiac monitoring initiated due to the potential for rapid decompensation of the patient's clinical condition. During the course of the patient's stay, I spent a considerable amount of time at the bedside performing serial re-evaluations of the patient's hemodynamic and clinical status because of the recognized potential threat to life or limb in this condition. I then had a chance to review not only all of the available current laboratory and radiographic studies obtained today, but I also reviewed old records available to me at the time. Additionally, any ancillary information available including tool checker records were reviewed. Sequential vital signs were obtained. Critical Care time of 10 minutes was performed exclusive of billable procedures. Central Line Central Line : Consent: Emergent Central Line Lumen: triple Maximal Sterile Barrier Tech: yes cap, yes mask, yes sterile gown, yes sterile gloves, yes large sterile sheet, yes hand hygiene, yes chlorhexidine prep Central Line Postion: femoral (R) Anesthesia: Lidocaine cc's of anesthesia: 3 Complications: none Central Line Post Position: sutured, good blood return Attempts: One Complications: None Medical Decision Making Diagnostic Impression: Primary Impression: Severe sepsis Additional Impressions: UTI (urinary tract infection) Dehydration ER Course 69-year-old male conserved, unable to contact conservator, patient had a central line emergently placed in the right femoral vein Last Vital Signs Date Time Temp Pulse Resp B/P (MAP) Pulse Ox O2 Delivery O2 Flow Rate FiO2 11/10/19 16:00 132 11/10/19 16:00 77/39 11/10/19 16:00 97.3 20 98 11/10/19 09:00 Nasal Cannula 2.0 Disposition: ADMITTED INPATIENT Condition: Critical Referrals: [place] DO (PCP) Christiano Weir MD November 10, 2019 17:56
[2019-11-10] MEDS: Norepinephrine 4mg/NS Premix 250 ML IV SCH (18:39)
--- NOTE | 2019-11-10 18:59 | Infectious Diseases Prog Note ---
Assessment/Plan Assessment/Plan Assessment: Septic Shock UTI Gram positive bacteremia -r/o S. aureus -11/07 Bcx 2/4 GPC -u/a wbc tntc, nit +, leuk +3; ucx >100k GNR FEver; improving- r/o COVID19 Hyperleukocytosis; improving Lymphopenia Thrombocytopenia, worsening, now severe -CXR: Low lung volumes with bronchovascular crowding. Otherwise no acute cardiopulmonary disease. YOEL, improving Down Syndrome COPD Dm2 hypothryoidism SNF resident ([facility]) Plan: -Continue empiric IV Vancomycin #3 -Switch Zosyn #2 (abx d #3) to Meropenem given worsening HD decompensation -11/07 SP Ceftriaxone x1 -f/u cx -Monitor CBC/CMP, temperature -COVID19 isolation and testing -Bcx x2 Thank you for consulting [facility]. Will continue to follow along with you. Subjective Allergies: Coded Allergies: ALLOPURINOL (Verified Allergy, Unknown, 12/22/15) Subjective afebrile >36hrs now transferred to ICU after [employer] for hypotension; central line placed by ED physician bacteremic leukocyotsis improving severe thrombocytopenia Objective Vital Signs Last 24 Hour Vital Signs Date Time Temp Pulse Resp B/P (MAP) Pulse Ox O2 Delivery O2 Flow Rate FiO2 11/10/19 18:39 76/63 11/10/19 16:00 132 11/10/19 16:00 77/39 11/10/19 16:00 97.3 135 20 83/47 (59) 98 11/10/19 13:51 57 77/39 (52) 100 11/10/19 13:36 53 74/49 (57) 100 11/10/19 12:22 130 69/47 (54) 98 11/10/19 12:00 129 11/10/19 11:55 96.6 130 20 85/49 (61) 96 11/10/19 09:00 Nasal Cannula 2.0 11/10/19 08:00 130 11/10/19 08:00 99.0 131 22 90/57 (68) 95 11/10/19 04:00 63 11/10/19 04:00 99.1 68 22 102/53 (69) 96 11/10/19 00:00 137 11/10/19 00:00 98.5 71 21 114/59 (77) 94 11/09/19 21:00 Nasal Cannula 2.0 11/09/19 20:00 71 11/09/19 20:00 98.6 68 19 111/68 (82) 95 Height (Feet): 5 Height (Inches): 3.00 Weight (Pounds): 218 Objective not examined to limit COVID19 exposure Microbiology Date/Time Source Procedure Growth Status 11/08/19 19:45 Blood Blood Culture - Preliminary Resulted 11/08/19 19:30 Blood Blood Culture - Preliminary Resulted 11/08/19 20:08 Nasal Nares MRSA Culture - Final Staphylococcus Aureus - Mrsa Complete 11/08/19 19:45 Urine,Clean Catch Urine Culture - Preliminary Gram Negative Bacillus 1 Resulted 11/08/19 20:08 Rectum Received Laboratory Tests Test 11/10/19 04:00 White Blood Count 20.7 K/UL (4.8-10.8) H Red Blood Count 3.72 M/UL (4.70-6.10) L Hemoglobin 12.4 G/DL (14.2-18.0) L Hematocrit 37.2 % (42.0-52.0) L Mean Corpuscular Volume 100 FL (80-99) H Mean Corpuscular Hemoglobin 33.3 PG (27.0-31.0) H Mean Corpuscular Hemoglobin Concent 33.2 G/DL (32.0-36.0) Red Cell Distribution Width 13.8 % (11.6-14.8) Platelet Count 35 K/UL (150-450) #L Mean Platelet Volume 9.2 FL (6.5-10.1) Neutrophils (%) (Auto) % (45.0-75.0) Lymphocytes (%) (Auto) % (20.0-45.0) Monocytes (%) (Auto) % (1.0-10.0) Eosinophils (%) (Auto) % (0.0-3.0) Basophils (%) (Auto) % (0.0-2.0) Differential Total Cells Counted 100 Neutrophils % (Manual) 92 % (45-75) H Lymphocytes % (Manual) 4 % (20-45) L Monocytes % (Manual) 4 % (1-10) Eosinophils % (Manual) 0 % (0-3) Basophils % (Manual) 0 % (0-2) Band Neutrophils 0 % (0-8) Platelet Estimate Decreased L Platelet Morphology Clumped Platelets Occasional Macrocytosis 1+ Sodium Level 151 MMOL/L (136-145) H Potassium Level 3.8 MMOL/L (3.5-5.1) Chloride Level 115 MMOL/L (98-107) H Carbon Dioxide Level 33 MMOL/L (21-32) H Anion Gap 4 mmol/L (5-15) L Blood Urea Nitrogen 32 mg/dL (7-18) H Creatinine 2.0 MG/DL (0.55-1.30) H Estimat Glomerular Filtration Rate 40.5 mL/min (>60) Glucose Level 195 MG/DL (74-106) H Hemoglobin A1c 7.5 % (4.3-6.0) H Uric Acid 6.0 MG/DL (2.6-7.2) Calcium Level 8.2 MG/DL (8.5-10.1) L Phosphorus Level 2.1 MG/DL (2.5-4.9) L Magnesium Level 1.9 MG/DL (1.8-2.4) Iron Level 31 ug/dL (50-175) L Total Iron Binding Capacity 99 ug/dL (250-450) L Percent Iron Saturation 31 % (15-50) Unsaturated Iron Binding 68 ug/dL (112-346) L Ferritin 507 NG/ML (8-388) H Total Bilirubin 0.4 MG/DL (0.2-1.0) Gamma Glutamyl Transpeptidase 8 U/L (5-85) Aspartate Amino Transf (AST/SGOT) 31 U/L (15-37) Alanine Aminotransferase (ALT/SGPT) 32 U/L (12-78) Alkaline Phosphatase 56 U/L (46-116) Total Creatine Kinase 161 U/L (26-308) Troponin I 0.075 ng/mL (0.000-0.056) C-Reactive Protein, Quantitative 20.6 mg/dL (0.00-0.90) H Pro-B-Type Natriuretic Peptide 2512 pg/mL (0-125) H Total Protein 6.2 G/DL (6.4-8.2) L Albumin 1.7 G/DL (3.4-5.0) L Globulin 4.5 g/dL Albumin/Globulin Ratio 0.4 (1.0-2.7) L Triglycerides Level 164 MG/DL (30-150) H Cholesterol Level 108 MG/DL (< 200) LDL Cholesterol 61 mg/dL (<100) HDL Cholesterol 13 MG/DL (40-60) L Cholesterol/HDL Ratio 8.3 (3.3-4.4) H Vitamin B12 Level 750 PG/ML (193-986) Folate 10.0 NG/ML (8.6-58.9) Thyroid Stimulating Hormone (TSH) 17.989 uiU/mL (0.358-3.740) Free Thyroxine 0.54 NG/DL (0.76-1.46) L Free Triiodothyronine 0.5 pg/mL (2.3-4.2) L Random Vancomycin Level 7.9 ug/mL Current Medications Medications (Trade) Dose Ordered Sig/Femi Route PRN Reason Start Time Stop Time Status Last Admin Dose Admin Aspirin (ASA) 325 mg DAILY ORAL 11/11/19 09:00 12/24/19 14:44 Dextrose 1,000 ml @ 100 mls/hr Q10H IV 11/10/19 18:30 12/10/19 18:29 11/10/19 18:40 Docusate Sodium (Colace) 100 mg THREE TIMES A DAY ORAL 11/11/19 09:00 12/09/19 17:59 Enoxaparin Sodium (Lovenox) 40 mg DAILY SUBQ 11/11/19 09:00 02/07/20 08:59 Hydrocortisone (Solu-CORTEF) 100 mg EVERY 8 HOURS IV 11/10/19 22:00 02/08/20 13:59 Levothyroxine Sodium (Synthroid) 50 mcg DAILY IV 11/11/19 09:00 12/10/19 09:29 Midodrine (Pro-Amatine) 2.5 mg THREE TIMES A DAY ORAL 11/11/19 09:00 02/07/20 14:44 Nitroglycerin (Ntg) 1 patch Q24H TDERMAL 11/11/19 16:00 12/09/19 15:59 Norepinephrine Bitartrate 250 ml @ 0 mls/hr Q24H IV 11/10/19 18:30 02/08/20 18:29 11/10/19 18:39 Pantoprazole (Protonix) 40 mg EVERY 12 HOURS IVP 11/10/19 21:00 12/09/19 14:44 Piperacillin Sod/ Tazobactam Sod 3.375 gm/Sodium Chloride 110 ml @ 27.5 mls/hr EVERY 8 HOURS IVPB 11/10/19 22:00 11/14/19 05:59 Vancomycin HCl (Vanco rx to dose) 1 ea DAILY PRN MISC Rx to dose 11/11/19 09:00 12/09/19 08:59 Polly Fuentes M.D. November 10, 2019 18:58
[2019-11-10] MEDS: Dyna-Hex 2% Top Sol 2oz TOPIC SCH (20:59)
[2019-11-10] MEDS: Meropenem 1 GM in NS 55 ML IVPB SCH (21:00)
[2019-11-10] MEDS: DOPamine 400mg/250ml 250 ML IV SCH (21:00)
[2019-11-10] MEDS: Hydrocortisone 100mg Inj IV SCH (21:55)
[2019-11-10] MEDS ORDERED: Piperacillin/Tazobactam 3.375 GM in NS 110 ML IVPB SCH (22:00)
--- NOTE | 2019-11-10 22:45 | Consultation ---
DATE OF CONSULTATION: 11/10/2019 NOTE: INCOMPLETE DICTATION CARDIOLOGY CRITICAL CARE NOTE CONSULTING PHYSICIAN: Irving Hoffman MD. REFERRING PHYSICIAN: Jesús Mustafa MD and Davon Falk MD. REASON FOR REFERRAL: Hypotension. HISTORY OF PRESENT ILLNESS: This is a critical care note. This is a 69-year-old gentleman with Down syndrome who is a resident at facility transferred for acute febrile illness, etiology of which had not completely clarified and he is in isolation respiratory droplet and being person under investigation for possibility of COVID. Being transferred from convalescent facility. The patient was seen by my covering physician, Dr. Michel yesterday. I have had multiple phone calls today from the nurse regarding his tachycardia. Several EKGs have been reviewed and communicated. The patient's blood pressure has been as low. Beta-blockers have been ordered; however, the patient's blood pressure being low is preventing administration of beta-blockers. Patient also had significant drop in blood pressure and several boluses of intravenous fluids have been administered with no effect. Patient does not appear to be in respiratory distress per the nursing staff and his blood cultures were just reported as being positive. Patient has not been able to provide any meaningful history and according to nurses, patient's blood pressure has been low. IV fluids administered. I had recommended 200 mL, which did not help. Significantly 1000 mL was ordered by Dr. Mustafa. Blood pressure is still on the low side and according to nursing staff earlier, patient was not in acute respiratory distress. Condom catheter was connected to the site. IV site was clean running IV fluids. Patient was NPO except ice chips and medications and without any shortness of breath or desaturations according to nursing staff. MEDICATIONS: Patient's medications at the time of this evaluation, hydrocortisone 100 mg q.8h. was initiated on 11/10/2019. The patient received Synthroid 50, Colace, nitroglycerin, which will be discontinued, Protonix 40 mg, aspirin 325 given daily, midodrine 2.5 mg 3 times a day, vancomycin, Lovenox 40 mg subcutaneous daily, and the patient is on Zosyn. ALLERGIES: To allopurinol. PHYSICAL EXAMINATION: Not performed in lieu of the fact that the patient has been seen by other care providers and that he is patient under investigation for possibility of COVID infection. VITAL SIGNS: The patient's vital signs, blood pressure has been ranging anywhere between 74/49 to 90/57 with heart rates of 57 to 130, temperature of 96.6 axillary, was as high as 99 earlier today. The last temperature of 101.8 was on 11/08/2019. LABORATORY VALUES: Patient's white count is 20.7, hemoglobin 12.4, and platelet count of 35,000. Of note, he had a white count of 26.9 at time of admission with platelet count of 109. His platelet counts have dropped significantly from 109 to 77 and now 34. Of note, however, in 2016 when he was last admitted here, he has platelet count of 70,000. He has 94 polys, 4 lymphs. His sodium is 151, potassium 3.8, chloride 115, bicarb 33, BUN 32, creatinine 2.0, glucose of 195. A1c of 7.5. Calcium is 8.2. Ferritin 507. Liver function tests are normal. Troponin of 0.075 down from 0.147 down from 0.208. ProBNP was 2600 on 11/09/2019 and is 2512 down. Albumin of 1.7. Triglycerides of 164, total cholesterol 108 with LDL of 61, and HDL of 13. TSH of 7.989 and a free T4 and T3 are both decreased at 0.54 and 0.5 respectively. Coags, INR 1.1 and PTT of 25. His vancomycin of 7.9. Urinalysis shows too numerous to count wbc's, 15 to 20 rbc's, 3+ leukocyte esterase, 4+ blood. MICROBIOLOGY: MRSA of nares is positive. The patient had urine gram-negative bacilli and blood cultures growing gram-positive cocci in clusters previously and now gram-negative rods on one set and gram-positive cocci in the other set. Chest x-ray, low lung volumes, otherwise no acute distress. Patient's electrocardiogram and telemetry strips were fully evaluated, had episodes of tachycardia with right bundle-branch conduction defect. Tachycardia of 132 was persistent. Atrial activity is difficult to see, but seems to be present, not sure of flutter 2:1 block. Subsequent conversion to sinus rhythm. Most recent EKGs with right bundle-branch conduction defect and telemetry data reviewed. Also persistent tachycardia in the 130 range and possibly 2:1 block. ASSESSMENT AND PLAN: 1. Septic shock. 2. Bacteremia. 3. Hypernatremia. 4. Status post acute renal failure. 5. Urinary tract infection. 6. Thrombocytopenia. Dr. Mustafa and Dr. Falk, this patient was seen in critical care cardiology consultation because of the hypotension. I recommended that the patient be transferred to the intensive care unit. The patient has advance POLST indicating no CPR and no intubation. I would recommend transferring the patient to the ICU for pressor. Irving Hoffman M.D. DR: ANDREW JOB#: [id number] CC:
--- NOTE | 2019-11-10 23:00 | Consultation ---
DATE OF CONSULTATION: 11/10/2019 NOTE: ADDENDUM CARDIOLOGY CONSULTATION This patient was seen in cardiac consultation. The patient is not complaining. He does have history of Down syndrome. He is only 69 years old. There is a order for Do Not Resuscitate on POLST do not attempt resuscitation. The patient's blood pressure is low despite IV fluid administration and steroid administration, likely secondary to sepsis, which is potentially easily curable with a dose of antibiotic. He should be maintained on some pressure to assure adequate perfusion pressure while allowing antibiotics to take their course. He will not be transferred to the intensive care unit for the process of resuscitation or intubation or CPR. Those will not be performed. However, pressors as a form of medication will be administered to help with the patient's recovery. If in the interim, the patient does worsen or he has an episode of cardiopulmonary arrest, he will not be resuscitated. This case was fully discussed with the nursing staff and was fully discussed with Dr. Mustafa who is also in agreement for treatment of this patient with pressor and hope to be able to turn around does get him back to his prior status and transfer to the facility. The patient has been receiving free water as well already and I have administered one-half normal saline. Platelets will be need to be observed. He on any anticoagulants. He is receiving low molecular weight heparin for DVT prophylaxis that may need to be discontinued. His Nitro patch will be discontinued as well if not done already and he will be followed. Total duration of this critical care note today is approximately 45 minutes. Irving Hoffman M.D. DR: ANDREW JOB#: [id number] CC:
[2019-11-11] VITALS (74 sets, daily range): BP systolic 59–166; BP diastolic 11–111
[2019-11-11] MEDS: Norepinephrine 4mg/NS Premix 250 ML IV SCH ×4 (00:24→18:45)
[2019-11-11] MEDS: Hydrocortisone 100mg Inj IV SCH ×3 (05:12→21:38)
[2019-11-11 05:44] LABS: HEMOGLOBIN 13.9 G/DL (14.2-18.0); MEAN CORPUSCULAR VOLUME 101 FL (80-99); PLATELET COUNT 77 K/UL (150-450); RED BLOOD COUNT 4.17 M/UL (4.70-6.10); RED CELL DISTRIBUTION WIDTH 13.7 % (11.6-14.8)
[2019-11-11 06:16] LABS: WHITE BLOOD COUNT 30.4 K/UL (4.8-10.8)
[2019-11-11 06:30] LABS: ALANINE AMINOTRANSFERASE 29 U/L (12-78); ALBUMIN 1.8 G/DL (3.4-5.0); ALBUMIN/GLOBULIN RATIO 0.3 (1.0-2.7); ALKALINE PHOSPHATASE 70 U/L (46-116); ANION GAP 10 mmol/L (5-15); ASPARTATE AMINO TRANSFERASE 28 U/L (15-37); BILIRUBIN,TOTAL 0.3 MG/DL (0.2-1.0); BLOOD UREA NITROGEN 29 mg/dL (7-18); CALCIUM 7.9 MG/DL (8.5-10.1); CARBON DIOXIDE 24 MMOL/L (21-32); CHLORIDE 107 MMOL/L (98-107); POTASSIUM 4.5 MMOL/L (3.5-5.1); SODIUM 141 MMOL/L (136-145)
[2019-11-11] MEDS: Pantoprazole Inj IVP SCH ×2 (08:22→20:38)
[2019-11-11] MEDS: Docusate 100mg cap ORAL SCH ×3 (08:22→18:00)
[2019-11-11] MEDS: Meropenem 1 GM in NS 55 ML IVPB SCH ×2 (08:23→20:38)
[2019-11-11] MEDS: Enoxaparin 40mg Inj SUBQ SCH (09:00)
--- NOTE | 2019-11-11 10:27 | Diagnostic Imaging Report ---
Indication: Dyspnea Technique: One view of the chest Comparison: 11/08/2019 Findings: The heart is borderline enlarged. The left hemidiaphragm is obscured. There is slight blunting of both costophrenic sulci. There is bilateral perihilar interstitial and airspace disease which appears increased from the prior study. Impression: Obscuration of left hemidiaphragm, may indicate developing basilar infiltrate and atelectasis Bilateral costophrenic angle blunting, small pleural effusions likely. Increased perihilar interstitial infiltrates versus edema Borderline cardiomegaly
--- NOTE | 2019-11-11 10:54 | Nephrology Progress Note ---
Assessment/Plan Problem List: (1) Renal failure (ARF), acute on chronic (2) Dehydration (3) Severe sepsis (4) Down syndrome (5) Hypothyroidism (6) Hypotension (7) DMII (diabetes mellitus, type 2) Assessment Renal failure most likely acute on chronic Renal failure has a major component of dehydration due to hypernatremia Sepsis and leukocytosis, possible pneumonia Anemia Elevated troponin 4+ proteinuria, UTI Suspected COVID-19 infection Diabetes mellitus Obstructive sleep apnea Down syndrome Hypothyroidism DNR/DNI Plan November 10: Patient is now in ICU. Was transferred because of hypotension. Currently on 2 pressors. Patient DNR and DNI. Discussed with RN. Blood sugar elevated. Patient on IV hydrocortisone. Will change IV to half-normal saline. Will increase Midodrin to 10 mg 3 times a day. Continue to monitor electrolytes and renal parameters. Other measures: Synthroid IV Hydrate with D5W Monitor renal parameters Avoid nephrotoxic's Antibiotics Thyroid function tests Keep the blood pressure and blood sugar in check Serial troponin I and EKG Aspirin and nitrates Per orders Subjective ROS Limited/Unobtainable: No Constitutional: Reports: malaise Objective Objective Last 24 Hour Vital Signs Date Time Temp Pulse Resp B/P (MAP) Pulse Ox O2 Delivery O2 Flow Rate FiO2 11/11/19 10:00 81 30 118/43 (68) 94 11/11/19 09:30 57 26 113/62 (79) 98 11/11/19 09:00 83 30 137/84 (101) 97 11/11/19 08:30 62 28 131/108 (116) 99 11/11/19 08:25 105/52 11/11/19 08:00 97.6 67 27 109/38 (61) 97 11/11/19 07:30 134 25 100/58 (72) 98 11/11/19 07:00 105/52 11/11/19 07:00 139 22 105/52 (69) 92 11/11/19 06:45 140 21 109/45 (66) 87 11/11/19 06:30 136 23 102/72 (82) 92 11/11/19 06:15 137 29 96/65 (75) 91 11/11/19 06:00 92/63 11/11/19 06:00 132 31 123/73 (90) 94 11/11/19 05:45 134 31 106/70 (82) 96 11/11/19 05:30 138 29 100/68 (79) 98 11/11/19 05:15 141 43 100/55 (70) 97 11/11/19 05:00 138 24 96/75 (82) 94 11/11/19 05:00 96/75 11/11/19 04:45 142 27 108/59 (75) 92 11/11/19 04:30 138 21 111/67 (82) 92 11/11/19 04:20 138 39 125/111 (116) 90 11/11/19 04:15 138 25 126/102 (110) 95 11/11/19 04:02 112/62 11/11/19 04:00 101/82 11/11/19 04:00 97.5 137 28 101/82 (88) 95 11/11/19 04:00 Nasal Cannula 2.0 11/11/19 03:45 138 31 112/62 (79) 96 11/11/19 03:30 144 30 95/81 (86) 97 11/11/19 03:15 140 23 94/48 (63) 91 11/11/19 03:10 140 11/11/19 03:00 106/63 11/11/19 03:00 136 26 106/63 (77) 93 11/11/19 02:45 137 33 117/70 (86) 96 11/11/19 02:30 139 26 114/69 (84) 95 11/11/19 02:15 140 25 97/65 (76) 85 11/11/19 02:00 119/64 11/11/19 02:00 130 29 119/64 (82) 96 11/11/19 01:45 54 26 125/45 (71) 97 11/11/19 01:30 55 28 121/58 (79) 98 11/11/19 01:15 59 27 106/48 (67) 97 11/11/19 01:00 60 28 123/77 (92) 97 11/11/19 01:00 123/77 11/11/19 00:45 55 23 126/67 (86) 93 11/11/19 00:38 121/75 11/11/19 00:30 140 28 123/66 (85) 96 11/11/19 00:24 70/49 11/11/19 00:18 142 28 70/49 (56) 94 11/11/19 00:15 139 29 59/35 (43) 94 11/11/19 00:00 97.0 137 25 117/65 (82) 91 11/11/19 00:00 70/49 11/11/19 00:00 Nasal Cannula 2.0 11/10/19 23:45 139 27 115/69 (84) 97 11/10/19 23:39 139 11/10/19 23:30 140 32 102/62 (75) 96 11/10/19 23:15 139 39 94/77 (83) 93 11/10/19 23:00 143 31 110/66 (81) 95 11/10/19 23:00 110/66 11/10/19 22:45 116/94 11/10/19 22:45 144 27 116/94 (101) 92 11/10/19 22:30 151 24 106/58 (74) 91 11/10/19 22:15 111/68 11/10/19 22:15 152 27 111/66 (81) 91 11/10/19 22:00 64 23 95/53 (67) 96 11/10/19 22:00 95/53 11/10/19 21:45 60 20 119/50 (73) 95 11/10/19 21:30 61 21 108/58 (75) 97 11/10/19 21:15 61 23 101/51 (68) 99 11/10/19 21:00 93/69 11/10/19 21:00 56 24 105/53 (70) 99 11/10/19 20:45 59 22 93/69 (77) 99 11/10/19 20:30 57 23 105/30 (55) 99 11/10/19 20:23 56 19 97/63 (74) 100 11/10/19 20:15 60 19 67/45 (52) 99 11/10/19 20:00 Nasal Cannula 2.0 11/10/19 20:00 97.7 134 26 70/42 (51) 100 11/10/19 19:45 134 22 80/65 (70) 100 11/10/19 19:32 134 11/10/19 19:30 135 21 81/55 (64) 99 11/10/19 19:25 98 Nasal Cannula 2.0 28 11/10/19 19:05 133 24 102/78 (86) 100 11/10/19 19:00 134 20 79/31 (47) 99 11/10/19 18:51 134 23 92/63 (73) 100 11/10/19 18:45 136 20 86/70 (75) 99 11/10/19 18:44 136 23 79/60 (66) 100 11/10/19 18:39 76/63 11/10/19 18:30 136 25 76/63 (67) 100 11/10/19 18:15 97.6 135 24 89/76 (80) 58 11/10/19 18:05 Nasal Cannula 2.0 11/10/19 16:00 132 11/10/19 16:00 77/39 11/10/19 16:00 97.3 135 20 83/47 (59) 98 11/10/19 13:51 57 77/39 (52) 100 11/10/19 13:36 53 74/49 (57) 100 11/10/19 12:22 130 69/47 (54) 98 11/10/19 12:00 129 11/10/19 11:55 96.6 130 20 85/49 (61) 96 Intake and Output 11/10/19 11/11/19 19:00 07:00 Intake Total 38.58 ml 1879.0786 ml Output Total 100 ml Balance 38.58 ml 1779.0786 ml IV Total 38.58 ml 1879.0786 ml Output Urine Total 100 ml # Voids 3 2 Laboratory Tests 11/11/19 03:20: White Blood Count 30.4*H, Red Blood Count 4.17L, Hemoglobin 13.9L, Hematocrit 42.0, Mean Corpuscular Volume 101H, Mean Corpuscular Hemoglobin 33.3H, Mean Corpuscular Hemoglobin Concent 33.1, Red Cell Distribution Width 13.7, Platelet Count 77#L, Mean Platelet Volume 13.3H, Neutrophils (%) (Auto) , Lymphocytes (% ) (Auto) , Monocytes (%) (Auto) , Eosinophils (%) (Auto) , Basophils (%) (Auto) , Differential Total Cells Counted 100, Neutrophils % (Manual) 93H, Lymphocytes % (Manual) 6L, Monocytes % (Manual) 1, Eosinophils % (Manual) 0, Basophils % ( Manual) 0, Band Neutrophils 0, Platelet Estimate DecreasedL, Platelet Morphology , Clumped Platelets Occasional, Macrocytosis 1+, Sodium Level 141#, Potassium Level 4.5, Chloride Level 107, Carbon Dioxide Level 24, Anion Gap 10, Blood Urea Nitrogen 29H, Creatinine 2.0H, Estimat Glomerular Filtration Rate 40.5, Glucose Level 370#H, Calcium Level 7.9L, Phosphorus Level 3.0, Magnesium Level 1.8, Total Bilirubin 0.3, Aspartate Amino Transf (AST/SGOT) 28, Alanine Aminotransferase (ALT/SGPT) 29, Alkaline Phosphatase 70, C-Reactive Protein, Quantitative 28.9H, Pro-B-Type Natriuretic Peptide 3984H, Total Protein 7.2, Albumin 1.8L, Globulin 5.4, Albumin/Globulin Ratio 0.3L Height (Feet): 5 Height (Inches): 3.00 Weight (Pounds): 210 General Appearance: no apparent distress Cardiovascular: normal rate Respiratory/Chest: decreased breath sounds, other - On nasal cannula Abdomen: distended Alexis Villagomez MD November 11, 2019 10:54
[2019-11-11] MEDS ORDERED: LORazepam Inj 2mg/ml 1ml IV SCH (12:12)
[2019-11-11] MEDS: Midodrine 10mg tab ORAL SCH ×2 (12:41→18:00)
--- NOTE | 2019-11-11 12:43 | Internal Med Progress Note ---
Subjective Date of Service: November 11, 2019 Physician Name Luis Rodriguez Attending Physician Davon Falk MD Current Medications Medications (Trade) Dose Ordered Sig/Femi Route PRN Reason Start Time Stop Time Status Last Admin Dose Admin Aspirin (ASA) 325 mg DAILY ORAL 11/11/19 09:00 12/24/19 14:44 Chlorhexidine Gluconate (Nilda-Hex 2%) 1 applic DAILY@2000 TOPIC 11/10/19 20:15 02/08/20 20:14 11/10/19 20:59 Docusate Sodium (Colace) 100 mg THREE TIMES A DAY ORAL 11/11/19 09:00 12/09/19 17:59 11/11/19 08:22 Dopamine HCl/ Dextrose 250 ml @ 0 mls/hr Q24H IV 11/10/19 20:42 02/08/20 20:41 11/10/19 21:00 Enoxaparin Sodium (Lovenox) 40 mg DAILY SUBQ 11/11/19 09:00 02/07/20 08:59 Hydrocortisone (Solu-CORTEF) 100 mg EVERY 8 HOURS IV 11/10/19 22:00 02/08/20 13:59 11/11/19 05:12 Levothyroxine Sodium (Synthroid) 50 mcg DAILY IV 11/11/19 09:00 12/10/19 09:29 11/11/19 08:22 Lorazepam (Ativan 2mg/ml 1ml) 2 mg ONCE IV 11/11/19 12:12 11/11/19 14:00 11/11/19 12:15 Meropenem 1 gm/ Sodium Chloride 55 ml @ 110 mls/hr EVERY 12 HOURS IVPB 11/10/19 21:00 11/15/19 20:59 11/11/19 08:23 Midodrine (Pro-Amatine) 10 mg THREE TIMES A DAY ORAL 11/11/19 13:00 02/07/20 14:44 Nitroglycerin (Ntg) 1 patch Q24H TDERMAL 11/11/19 16:00 12/09/19 15:59 Norepinephrine Bitartrate 250 ml @ 0 mls/hr Q24H IV 11/10/19 18:30 02/08/20 18:29 11/11/19 08:25 Pantoprazole (Protonix) 40 mg EVERY 12 HOURS IVP 11/10/19 21:00 12/09/19 14:44 11/11/19 08:22 Sodium Chloride 1,000 ml @ 100 mls/hr Q10H IV 11/11/19 11:00 12/11/19 10:59 11/11/19 11:03 Vancomycin HCl (Vanco rx to dose) 1 ea DAILY PRN MISC Rx to dose 11/11/19 09:00 12/09/19 08:59 Allergies: Coded Allergies: ALLOPURINOL (Verified Allergy, Unknown, 12/22/15) ROS Limited/Unobtainable: Yes Subjective 69YO M with Down's syndrome admitted with fever. Now UTI and sepsis. Cover for Int Med-Dr Falk. ICU. On dopamine and levophed Objective Last Vital Signs Date Time Temp Pulse Resp B/P (MAP) Pulse Ox O2 Delivery O2 Flow Rate FiO2 11/11/19 11:03 133/106 11/11/19 10:00 81 30 94 11/11/19 08:00 97.6 11/11/19 04:00 Nasal Cannula 2.0 11/10/19 19:25 28 Laboratory Tests Test 11/11/19 03:20 White Blood Count 30.4 K/UL (4.8-10.8) *H Red Blood Count 4.17 M/UL (4.70-6.10) L Hemoglobin 13.9 G/DL (14.2-18.0) L Hematocrit 42.0 % (42.0-52.0) Mean Corpuscular Volume 101 FL (80-99) H Mean Corpuscular Hemoglobin 33.3 PG (27.0-31.0) H Mean Corpuscular Hemoglobin Concent 33.1 G/DL (32.0-36.0) Red Cell Distribution Width 13.7 % (11.6-14.8) Platelet Count 77 K/UL (150-450) #L Mean Platelet Volume 13.3 FL (6.5-10.1) H Neutrophils (%) (Auto) % (45.0-75.0) Lymphocytes (%) (Auto) % (20.0-45.0) Monocytes (%) (Auto) % (1.0-10.0) Eosinophils (%) (Auto) % (0.0-3.0) Basophils (%) (Auto) % (0.0-2.0) Differential Total Cells Counted 100 Neutrophils % (Manual) 93 % (45-75) H Lymphocytes % (Manual) 6 % (20-45) L Monocytes % (Manual) 1 % (1-10) Eosinophils % (Manual) 0 % (0-3) Basophils % (Manual) 0 % (0-2) Band Neutrophils 0 % (0-8) Platelet Estimate Decreased L Platelet Morphology Clumped Platelets Occasional Macrocytosis 1+ Sodium Level 141 MMOL/L (136-145) # Potassium Level 4.5 MMOL/L (3.5-5.1) Chloride Level 107 MMOL/L (98-107) Carbon Dioxide Level 24 MMOL/L (21-32) Anion Gap 10 mmol/L (5-15) Blood Urea Nitrogen 29 mg/dL (7-18) H Creatinine 2.0 MG/DL (0.55-1.30) H Estimat Glomerular Filtration Rate 40.5 mL/min (>60) Glucose Level 370 MG/DL (74-106) #H Calcium Level 7.9 MG/DL (8.5-10.1) L Phosphorus Level 3.0 MG/DL (2.5-4.9) Magnesium Level 1.8 MG/DL (1.8-2.4) Total Bilirubin 0.3 MG/DL (0.2-1.0) Aspartate Amino Transf (AST/SGOT) 28 U/L (15-37) Alanine Aminotransferase (ALT/SGPT) 29 U/L (12-78) Alkaline Phosphatase 70 U/L (46-116) C-Reactive Protein, Quantitative 28.9 mg/dL (0.00-0.90) H Pro-B-Type Natriuretic Peptide 3984 pg/mL (0-125) H Total Protein 7.2 G/DL (6.4-8.2) Albumin 1.8 G/DL (3.4-5.0) L Globulin 5.4 g/dL Albumin/Globulin Ratio 0.3 (1.0-2.7) L Microbiology Date/Time Source Procedure Growth Status 11/08/19 19:45 Blood Blood Culture - Preliminary Resulted 11/08/19 19:30 Blood Blood Culture - Preliminary Resulted 11/08/19 20:08 Nasal Nares MRSA Culture - Final Staphylococcus Aureus - Mrsa Complete 11/08/19 19:45 Urine,Clean Catch Urine Culture - Final Proteus Mirabilis Complete 11/08/19 20:08 Rectum - Final NO CARBAPENEM-RESISTANT ENTEROBACTERI... Complete 11/08/19 20:08 Rectum VRE Culture - Final Enterococcus Faecalis - Vre Complete Intake and Output 11/10/19 11/11/19 19:00 07:00 Intake Total 38.58 ml 1879.0786 ml Output Total 100 ml Balance 38.58 ml 1779.0786 ml IV Total 38.58 ml 1879.0786 ml Output Urine Total 100 ml # Voids 3 2 Objective PHYSICAL EXAMINATION: GENERAL: Patient is a well-developed, well-nourished obese male, in no apparent distress. HEENT: Eyes, pupils are equal and responsive to light and accommodation. Extraocular movements are intact. NECK: Supple without lymphadenopathy. CHEST: Lungs are clear to auscultation bilaterally without wheezes or rales. CARDIOVASCULAR: Regular rhythm and rate. S1, S2 are normal without murmurs, rubs, or gallops. ABDOMEN: Soft, nontender, nondistended. Positive bowel sounds. No evidence of hepatosplenomegaly. Currently, no rebound or guarding noted. EXTREMITIES: Negative for clubbing, cyanosis, or edema. RECTAL/GENITAL: Not performed. NEUROLOGIC: Cranial nerves II through XII are grossly intact without focal deficits. Motor strength is 5/5 bilaterally. Deep tendon reflexes are 2+ plantar. Assessment/Plan Assessment/Plan ASSESSMENT: This is a 69-year-old male. 1. Urinary tract infection=proteus mirabilis 2. Fever. 3. Leukocytosis. 4. Thrombocytopenia. 5. Renal failure. 6. Asthma. 7. Hypothyroidism. 8. Obesity. 9. Down syndrome. 10. severe sepsis=gram pos cocci 11. Hypotension TREATMENT: 1. Urinary tract infection/fever. ABX=vancomycin, meropenem and Zosyn. Infectious Disease = Dr. Fuentes. Urine culture =proteus 2. Asthma. A Pulmonary consultation has been obtained with Dr. Jesús Mustafa. COVID-19 is pending 3. Hypothyroidism. Continue Levoxyl as above. 4. Down syndrome. 5. Obesity. 6. Thrombocytopenia. 7. Leukocytosis. 8. Renal failure. A Nephrology consultation has been obtained with Dr. Alexis Villagomez. 9. DNI/DNR-see polst 10. ICU status on pressors Luis Rodriguez MD November 11, 2019 12:43
--- NOTE | 2019-11-11 13:40 | Pulmonolgy Critical Care Note ---
Critical Care - Asmt/Plan Problems: (1) Severe sepsis (2) Renal failure (ARF), acute on chronic (3) Seizure disorder (4) UTI (urinary tract infection) (5) COPD (chronic obstructive pulmonary disease) (6) DMII (diabetes mellitus, type 2) (7) Down syndrome (8) Hypothyroidism Respiratory: monitor respiratory rate, adjust FIO2, CXR Cardiac: continue pressors, continue to monitor HR/BP Renal: F/U I&O, keep IV fluid, check electrolytes Infectious Disease: check cultures Gastrointestinal: continue feedings/current rate Endocrine: monitor blood sugar, check TSH Hematologic: monitor H/H, transfuse if hgb<8.5 Neurologic: PRN Ativan, keep patient comfortable Affect: PRN ativan Disposition: keep in ICU Notes Reviewed: water tender, cardio Discussed with: nurses, consultants Critical Care - Objective Last 24 Hour Vital Signs Date Time Temp Pulse Resp B/P (MAP) Pulse Ox O2 Delivery O2 Flow Rate FiO2 11/11/19 11:03 133/106 11/11/19 10:15 133/106 11/11/19 10:00 118/43 11/11/19 10:00 81 30 118/43 (68) 94 11/11/19 09:30 113/62 11/11/19 09:30 57 26 113/62 (79) 98 11/11/19 09:15 116/103 11/11/19 09:00 83 30 137/84 (101) 97 11/11/19 09:00 137/84 11/11/19 08:30 62 28 131/108 (116) 99 11/11/19 08:25 105/52 11/11/19 08:00 97.6 67 27 109/38 (61) 97 11/11/19 08:00 109/38 11/11/19 07:30 134 25 100/58 (72) 98 11/11/19 07:00 105/52 11/11/19 07:00 139 22 105/52 (69) 92 11/11/19 06:45 140 21 109/45 (66) 87 11/11/19 06:30 136 23 102/72 (82) 92 11/11/19 06:15 137 29 96/65 (75) 91 11/11/19 06:00 92/63 11/11/19 06:00 132 31 123/73 (90) 94 11/11/19 05:45 134 31 106/70 (82) 96 11/11/19 05:30 138 29 100/68 (79) 98 11/11/19 05:15 141 43 100/55 (70) 97 11/11/19 05:00 138 24 96/75 (82) 94 11/11/19 05:00 96/75 11/11/19 04:45 142 27 108/59 (75) 92 11/11/19 04:30 138 21 111/67 (82) 92 11/11/19 04:20 138 39 125/111 (116) 90 11/11/19 04:15 138 25 126/102 (110) 95 11/11/19 04:02 112/62 11/11/19 04:00 101/82 11/11/19 04:00 97.5 137 28 101/82 (88) 95 11/11/19 04:00 Nasal Cannula 2.0 11/11/19 03:45 138 31 112/62 (79) 96 11/11/19 03:30 144 30 95/81 (86) 97 11/11/19 03:15 140 23 94/48 (63) 91 11/11/19 03:10 140 11/11/19 03:00 106/63 11/11/19 03:00 136 26 106/63 (77) 93 11/11/19 02:45 137 33 117/70 (86) 96 11/11/19 02:30 139 26 114/69 (84) 95 11/11/19 02:15 140 25 97/65 (76) 85 11/11/19 02:00 119/64 11/11/19 02:00 130 29 119/64 (82) 96 11/11/19 01:45 54 26 125/45 (71) 97 11/11/19 01:30 55 28 121/58 (79) 98 11/11/19 01:15 59 27 106/48 (67) 97 11/11/19 01:00 60 28 123/77 (92) 97 11/11/19 01:00 123/77 11/11/19 00:45 55 23 126/67 (86) 93 11/11/19 00:38 121/75 11/11/19 00:30 140 28 123/66 (85) 96 11/11/19 00:24 70/49 11/11/19 00:18 142 28 70/49 (56) 94 11/11/19 00:15 139 29 59/35 (43) 94 11/11/19 00:00 97.0 137 25 117/65 (82) 91 11/11/19 00:00 70/49 11/11/19 00:00 Nasal Cannula 2.0 11/10/19 23:45 139 27 115/69 (84) 97 11/10/19 23:39 139 11/10/19 23:30 140 32 102/62 (75) 96 11/10/19 23:15 139 39 94/77 (83) 93 11/10/19 23:00 143 31 110/66 (81) 95 11/10/19 23:00 110/66 11/10/19 22:45 116/94 11/10/19 22:45 144 27 116/94 (101) 92 11/10/19 22:30 151 24 106/58 (74) 91 11/10/19 22:15 111/68 11/10/19 22:15 152 27 111/66 (81) 91 11/10/19 22:00 64 23 95/53 (67) 96 11/10/19 22:00 95/53 11/10/19 21:45 60 20 119/50 (73) 95 11/10/19 21:30 61 21 108/58 (75) 97 11/10/19 21:15 61 23 101/51 (68) 99 11/10/19 21:00 93/69 11/10/19 21:00 56 24 105/53 (70) 99 11/10/19 20:45 59 22 93/69 (77) 99 11/10/19 20:30 57 23 105/30 (55) 99 11/10/19 20:23 56 19 97/63 (74) 100 11/10/19 20:15 60 19 67/45 (52) 99 11/10/19 20:00 Nasal Cannula 2.0 11/10/19 20:00 97.7 134 26 70/42 (51) 100 11/10/19 19:45 134 22 80/65 (70) 100 11/10/19 19:32 134 11/10/19 19:30 135 21 81/55 (64) 99 11/10/19 19:25 98 Nasal Cannula 2.0 28 11/10/19 19:05 133 24 102/78 (86) 100 11/10/19 19:00 134 20 79/31 (47) 99 11/10/19 18:51 134 23 92/63 (73) 100 11/10/19 18:45 136 20 86/70 (75) 99 11/10/19 18:44 136 23 79/60 (66) 100 11/10/19 18:39 76/63 11/10/19 18:30 136 25 76/63 (67) 100 11/10/19 18:15 97.6 135 24 89/76 (80) 58 11/10/19 18:05 Nasal Cannula 2.0 11/10/19 16:00 132 11/10/19 16:00 77/39 11/10/19 16:00 97.3 135 20 83/47 (59) 98 11/10/19 13:51 57 77/39 (52) 100 Status: sedated Condition: critical HEENT: atraumatic, normocephalic Lungs: rhonchi Heart: HR/BP unstable Abdomen: soft, non-tender, feeding tube Extremities: edema Micro: Microbiology Date/Time Source Procedure Growth Status 11/08/19 19:45 Blood Blood Culture - Preliminary Resulted 11/08/19 19:30 Blood Blood Culture - Preliminary Resulted 11/08/19 20:08 Nasal Nares MRSA Culture - Final Staphylococcus Aureus - Mrsa Complete 11/08/19 19:45 Urine,Clean Catch Urine Culture - Final Proteus Mirabilis Complete 11/08/19 20:08 Rectum - Final NO CARBAPENEM-RESISTANT ENTEROBACTERI... Complete 11/08/19 20:08 Rectum VRE Culture - Final Enterococcus Faecalis - Vre Complete Accucheck: 188 Critical Care - Subjective ROS Limited/Unobtainable: Yes Condition: critical EKG Rhythm: Sinus Rhythm FI02: 28 Drips: levophed I&O: Intake and Output 11/10/19 11/11/19 19:00 07:00 Intake Total 38.58 ml 1879.0786 ml Output Total 100 ml Balance 38.58 ml 1779.0786 ml IV Total 38.58 ml 1879.0786 ml Output Urine Total 100 ml # Voids 3 2 Labs: Laboratory Tests Test 11/11/19 03:20 White Blood Count 30.4 K/UL (4.8-10.8) *H Red Blood Count 4.17 M/UL (4.70-6.10) L Hemoglobin 13.9 G/DL (14.2-18.0) L Hematocrit 42.0 % (42.0-52.0) Mean Corpuscular Volume 101 FL (80-99) H Mean Corpuscular Hemoglobin 33.3 PG (27.0-31.0) H Mean Corpuscular Hemoglobin Concent 33.1 G/DL (32.0-36.0) Red Cell Distribution Width 13.7 % (11.6-14.8) Platelet Count 77 K/UL (150-450) #L Mean Platelet Volume 13.3 FL (6.5-10.1) H Neutrophils (%) (Auto) % (45.0-75.0) Lymphocytes (%) (Auto) % (20.0-45.0) Monocytes (%) (Auto) % (1.0-10.0) Eosinophils (%) (Auto) % (0.0-3.0) Basophils (%) (Auto) % (0.0-2.0) Differential Total Cells Counted 100 Neutrophils % (Manual) 93 % (45-75) H Lymphocytes % (Manual) 6 % (20-45) L Monocytes % (Manual) 1 % (1-10) Eosinophils % (Manual) 0 % (0-3) Basophils % (Manual) 0 % (0-2) Band Neutrophils 0 % (0-8) Platelet Estimate Decreased L Platelet Morphology Clumped Platelets Occasional Macrocytosis 1+ Sodium Level 141 MMOL/L (136-145) # Potassium Level 4.5 MMOL/L (3.5-5.1) Chloride Level 107 MMOL/L (98-107) Carbon Dioxide Level 24 MMOL/L (21-32) Anion Gap 10 mmol/L (5-15) Blood Urea Nitrogen 29 mg/dL (7-18) H Creatinine 2.0 MG/DL (0.55-1.30) H Estimat Glomerular Filtration Rate 40.5 mL/min (>60) Glucose Level 370 MG/DL (74-106) #H Calcium Level 7.9 MG/DL (8.5-10.1) L Phosphorus Level 3.0 MG/DL (2.5-4.9) Magnesium Level 1.8 MG/DL (1.8-2.4) Total Bilirubin 0.3 MG/DL (0.2-1.0) Aspartate Amino Transf (AST/SGOT) 28 U/L (15-37) Alanine Aminotransferase (ALT/SGPT) 29 U/L (12-78) Alkaline Phosphatase 70 U/L (46-116) C-Reactive Protein, Quantitative 28.9 mg/dL (0.00-0.90) H Pro-B-Type Natriuretic Peptide 3984 pg/mL (0-125) H Total Protein 7.2 G/DL (6.4-8.2) Albumin 1.8 G/DL (3.4-5.0) L Globulin 5.4 g/dL Albumin/Globulin Ratio 0.3 (1.0-2.7) L Jesús Mustafa MD November 11, 2019 13:40
[2019-11-11] MEDS ORDERED: Phenytoin 1,000 MG in NS 275 ML IVPB SCH (15:00)
[2019-11-11] MEDS: Nitroglycerin Patch 0.1mg/hr TDERMAL SCH (16:00)
--- NOTE | 2019-11-11 16:30 | Infectious Diseases Prog Note ---
Assessment/Plan Assessment/Plan Assessment: Septic Shock UTI Gram positive bacteremia -r/o S. aureus Gram neg bacteremia -11/07 Bcx 2/4 GPC clusters, /4 GNRs; 11/09 Bcx p -u/a wbc tntc, nit +, leuk +3; ucx >100k P, mirabilis (I levaquin; otherwise S) Probable PNA- r/o COVID29 -11/10 CXR: Obscuration of left hemidiaphragm, may indicate developing basilar infiltrate and atelectasis Bilateral costophrenic angle blunting, small pleural effusions likely. Increased perihilar interstitial infiltrates versus edema. Borderline cardiomegaly -11/07 CXR: Low lung volumes with bronchovascular crowding. Otherwise no acute cardiopulmonary disease. FEver; SP- Hyperleukocytosis; worsened, now in the 30s Lymphopenia Thrombocytopenia, worsening, now severe YOEL, improving Sacral deep tissue injury- no signs of infection Down Syndrome COPD Dm2 hypothryoidism SNF resident ([facility]) Plan: -Continue empiric IV Vancomycin #4 -Continue Meropenem #2 (abx d #4) given worsening HD decompensation -11/09 SP Zosyn #2 -11/07 SP Ceftriaxone x1 -f/u cx -Monitor CBC/CMP, temperature -COVID19 isolation and testing -f/u Bcx x2 -once Cr improve, will get CT c/abd/p w/ given severe leukocytosis Thank you for consulting [facility]. Will continue to follow along with you. Subjective Allergies: Coded Allergies: ALLOPURINOL (Verified Allergy, Unknown, 12/22/15) Subjective afebrile >48hrs at 2l NC levophed down to 6 wbc increased, now at 30 Objective Vital Signs Last 24 Hour Vital Signs Date Time Temp Pulse Resp B/P (MAP) Pulse Ox O2 Delivery O2 Flow Rate FiO2 11/11/19 11:03 133/106 11/11/19 10:15 133/106 11/11/19 10:00 118/43 11/11/19 10:00 81 30 118/43 (68) 94 11/11/19 09:30 113/62 11/11/19 09:30 57 26 113/62 (79) 98 11/11/19 09:15 116/103 11/11/19 09:00 83 30 137/84 (101) 97 11/11/19 09:00 137/84 11/11/19 08:30 62 28 131/108 (116) 99 11/11/19 08:25 105/52 11/11/19 08:00 97.6 67 27 109/38 (61) 97 11/11/19 08:00 109/38 11/11/19 07:30 134 25 100/58 (72) 98 11/11/19 07:00 105/52 11/11/19 07:00 139 22 105/52 (69) 92 11/11/19 06:45 140 21 109/45 (66) 87 11/11/19 06:30 136 23 102/72 (82) 92 11/11/19 06:15 137 29 96/65 (75) 91 11/11/19 06:00 92/63 11/11/19 06:00 132 31 123/73 (90) 94 11/11/19 05:45 134 31 106/70 (82) 96 11/11/19 05:30 138 29 100/68 (79) 98 11/11/19 05:15 141 43 100/55 (70) 97 11/11/19 05:00 138 24 96/75 (82) 94 11/11/19 05:00 96/75 11/11/19 04:45 142 27 108/59 (75) 92 11/11/19 04:30 138 21 111/67 (82) 92 11/11/19 04:20 138 39 125/111 (116) 90 11/11/19 04:15 138 25 126/102 (110) 95 11/11/19 04:02 112/62 11/11/19 04:00 101/82 11/11/19 04:00 97.5 137 28 101/82 (88) 95 11/11/19 04:00 Nasal Cannula 2.0 11/11/19 03:45 138 31 112/62 (79) 96 11/11/19 03:30 144 30 95/81 (86) 97 11/11/19 03:15 140 23 94/48 (63) 91 11/11/19 03:10 140 11/11/19 03:00 106/63 11/11/19 03:00 136 26 106/63 (77) 93 11/11/19 02:45 137 33 117/70 (86) 96 11/11/19 02:30 139 26 114/69 (84) 95 11/11/19 02:15 140 25 97/65 (76) 85 11/11/19 02:00 119/64 11/11/19 02:00 130 29 119/64 (82) 96 11/11/19 01:45 54 26 125/45 (71) 97 11/11/19 01:30 55 28 121/58 (79) 98 11/11/19 01:15 59 27 106/48 (67) 97 11/11/19 01:00 60 28 123/77 (92) 97 11/11/19 01:00 123/77 11/11/19 00:45 55 23 126/67 (86) 93 11/11/19 00:38 121/75 11/11/19 00:30 140 28 123/66 (85) 96 11/11/19 00:24 70/49 11/11/19 00:18 142 28 70/49 (56) 94 11/11/19 00:15 139 29 59/35 (43) 94 11/11/19 00:00 97.0 137 25 117/65 (82) 91 11/11/19 00:00 70/49 11/11/19 00:00 Nasal Cannula 2.0 11/10/19 23:45 139 27 115/69 (84) 97 11/10/19 23:39 139 11/10/19 23:30 140 32 102/62 (75) 96 11/10/19 23:15 139 39 94/77 (83) 93 11/10/19 23:00 143 31 110/66 (81) 95 11/10/19 23:00 110/66 11/10/19 22:45 116/94 11/10/19 22:45 144 27 116/94 (101) 92 11/10/19 22:30 151 24 106/58 (74) 91 11/10/19 22:15 111/68 11/10/19 22:15 152 27 111/66 (81) 91 11/10/19 22:00 64 23 95/53 (67) 96 11/10/19 22:00 95/53 11/10/19 21:45 60 20 119/50 (73) 95 11/10/19 21:30 61 21 108/58 (75) 97 11/10/19 21:15 61 23 101/51 (68) 99 11/10/19 21:00 93/69 11/10/19 21:00 56 24 105/53 (70) 99 11/10/19 20:45 59 22 93/69 (77) 99 11/10/19 20:30 57 23 105/30 (55) 99 11/10/19 20:23 56 19 97/63 (74) 100 11/10/19 20:15 60 19 67/45 (52) 99 11/10/19 20:00 Nasal Cannula 2.0 11/10/19 20:00 97.7 134 26 70/42 (51) 100 11/10/19 19:45 134 22 80/65 (70) 100 11/10/19 19:32 134 11/10/19 19:30 135 21 81/55 (64) 99 11/10/19 19:25 98 Nasal Cannula 2.0 28 11/10/19 19:05 133 24 102/78 (86) 100 11/10/19 19:00 134 20 79/31 (47) 99 11/10/19 18:51 134 23 92/63 (73) 100 11/10/19 18:45 136 20 86/70 (75) 99 11/10/19 18:44 136 23 79/60 (66) 100 11/10/19 18:39 76/63 11/10/19 18:30 136 25 76/63 (67) 100 11/10/19 18:15 97.6 135 24 89/76 (80) 58 11/10/19 18:05 Nasal Cannula 2.0 Height (Feet): 5 Height (Inches): 3.00 Weight (Pounds): 210 Objective not examined to limit COVID19 exposure Microbiology Date/Time Source Procedure Growth Status 11/08/19 19:45 Blood Blood Culture - Preliminary Resulted 11/08/19 19:30 Blood Blood Culture - Preliminary Resulted 11/08/19 20:08 Nasal Nares MRSA Culture - Final Staphylococcus Aureus - Mrsa Complete 11/08/19 19:45 Urine,Clean Catch Urine Culture - Final Proteus Mirabilis Complete 11/08/19 20:08 Rectum - Final NO CARBAPENEM-RESISTANT ENTEROBACTERI... Complete 11/08/19 20:08 Rectum VRE Culture - Final Enterococcus Faecalis - Vre Complete Laboratory Tests Test 11/11/19 03:20 White Blood Count 30.4 K/UL (4.8-10.8) *H Red Blood Count 4.17 M/UL (4.70-6.10) L Hemoglobin 13.9 G/DL (14.2-18.0) L Hematocrit 42.0 % (42.0-52.0) Mean Corpuscular Volume 101 FL (80-99) H Mean Corpuscular Hemoglobin 33.3 PG (27.0-31.0) H Mean Corpuscular Hemoglobin Concent 33.1 G/DL (32.0-36.0) Red Cell Distribution Width 13.7 % (11.6-14.8) Platelet Count 77 K/UL (150-450) #L Mean Platelet Volume 13.3 FL (6.5-10.1) H Neutrophils (%) (Auto) % (45.0-75.0) Lymphocytes (%) (Auto) % (20.0-45.0) Monocytes (%) (Auto) % (1.0-10.0) Eosinophils (%) (Auto) % (0.0-3.0) Basophils (%) (Auto) % (0.0-2.0) Differential Total Cells Counted 100 Neutrophils % (Manual) 93 % (45-75) H Lymphocytes % (Manual) 6 % (20-45) L Monocytes % (Manual) 1 % (1-10) Eosinophils % (Manual) 0 % (0-3) Basophils % (Manual) 0 % (0-2) Band Neutrophils 0 % (0-8) Platelet Estimate Decreased L Platelet Morphology Clumped Platelets Occasional Macrocytosis 1+ Sodium Level 141 MMOL/L (136-145) # Potassium Level 4.5 MMOL/L (3.5-5.1) Chloride Level 107 MMOL/L (98-107) Carbon Dioxide Level 24 MMOL/L (21-32) Anion Gap 10 mmol/L (5-15) Blood Urea Nitrogen 29 mg/dL (7-18) H Creatinine 2.0 MG/DL (0.55-1.30) H Estimat Glomerular Filtration Rate 40.5 mL/min (>60) Glucose Level 370 MG/DL (74-106) #H Calcium Level 7.9 MG/DL (8.5-10.1) L Phosphorus Level 3.0 MG/DL (2.5-4.9) Magnesium Level 1.8 MG/DL (1.8-2.4) Total Bilirubin 0.3 MG/DL (0.2-1.0) Aspartate Amino Transf (AST/SGOT) 28 U/L (15-37) Alanine Aminotransferase (ALT/SGPT) 29 U/L (12-78) Alkaline Phosphatase 70 U/L (46-116) C-Reactive Protein, Quantitative 28.9 mg/dL (0.00-0.90) H Pro-B-Type Natriuretic Peptide 3984 pg/mL (0-125) H Total Protein 7.2 G/DL (6.4-8.2) Albumin 1.8 G/DL (3.4-5.0) L Globulin 5.4 g/dL Albumin/Globulin Ratio 0.3 (1.0-2.7) L Current Medications Medications (Trade) Dose Ordered Sig/Femi Route PRN Reason Start Time Stop Time Status Last Admin Dose Admin Aspirin (ASA) 325 mg DAILY ORAL 11/11/19 09:00 12/24/19 14:44 Chlorhexidine Gluconate (Nilda-Hex 2%) 1 applic DAILY@2000 TOPIC 11/10/19 20:15 02/08/20 20:14 11/10/19 20:59 Docusate Sodium (Colace) 100 mg THREE TIMES A DAY ORAL 11/11/19 09:00 12/09/19 17:59 11/11/19 08:22 Dopamine HCl/ Dextrose 250 ml @ 0 mls/hr Q24H IV 11/10/19 20:42 02/08/20 20:41 11/10/19 21:00 Enoxaparin Sodium (Lovenox) 40 mg DAILY SUBQ 11/11/19 09:00 02/07/20 08:59 Hydrocortisone (Solu-CORTEF) 100 mg EVERY 8 HOURS IV 11/10/19 22:00 02/08/20 13:59 11/11/19 13:24 Levothyroxine Sodium (Synthroid) 50 mcg DAILY IV 11/11/19 09:00 12/10/19 09:29 11/11/19 08:22 Lorazepam (Ativan 2mg/ml 1ml) 1 mg Q1H PRN IV For Seizures 11/11/19 13:15 11/18/19 13:14 Meropenem 1 gm/ Sodium Chloride 55 ml @ 110 mls/hr EVERY 12 HOURS IVPB 11/10/19 21:00 11/15/19 20:59 11/11/19 08:23 Midodrine (Pro-Amatine) 10 mg THREE TIMES A DAY ORAL 11/11/19 13:00 02/07/20 14:44 Nitroglycerin (Ntg) 1 patch Q24H TDERMAL 11/11/19 16:00 12/09/19 15:59 Norepinephrine Bitartrate 250 ml @ 0 mls/hr Q24H IV 11/10/19 18:30 02/08/20 18:29 11/11/19 08:25 Pantoprazole (Protonix) 40 mg EVERY 12 HOURS IVP 11/10/19 21:00 12/09/19 14:44 11/11/19 08:22 Phenytoin 100 mg/ Sodium Chloride 57 ml @ 114 mls/hr [id number] PHENYTOIN IVPB 11/12/19 00:00 12/12/19 00:00 Phenytoin 1000 mg/ Sodium Chloride 295 ml @ 295 mls/hr ONCE IVPB 11/11/19 15:00 11/11/19 17:00 11/11/19 15:02 Sodium Chloride 1,000 ml @ 100 mls/hr Q10H IV 11/11/19 11:00 12/11/19 10:59 11/11/19 11:03 Vancomycin HCl (Vanco rx to dose) 1 ea DAILY PRN MISC Rx to dose 11/11/19 09:00 12/09/19 08:59 Polly Fuentes M.D. November 11, 2019 16:30
--- NOTE | 2019-11-11 18:08 | Diagnostic Imaging Report ---
EXAM: XR Abdomen, 2 Views CLINICAL HISTORY: TUBE PLACEMENT TECHNIQUE: Frontal view of the abdomen/pelvis with upright view of the abdomen. COMPARISON: 11/08/2019 FINDINGS: Lower thorax: Retrocardiac atelectasis, correlate to exclude consolidation. Low lung volumes with bronchovascular crowding. No pleural effusion, or pneumothorax. Intraperitoneal space: No free air. Gastrointestinal tract: Unremarkable. No dilation. Bones/joints: Degenerative spine findings. Tubes, lines and devices: Enteric tube with tip and proximal sideport below the gastroesophageal junction. Possible right femoral vascular catheter, tip terminating in the region of the IVC confluence. IMPRESSION: 1. Enteric tube with tip and proximal sideport below the gastroesophageal junction. Possible right femoral vascular catheter, tip terminating in the region of the IVC confluence. 2. Retrocardiac atelectasis, correlate to exclude consolidation. 3. Low lung volumes with bronchovascular crowding. 4. Otherwise no acute cardiopulmonary disease. 5. Nonobstructive bowel gas pattern. Impression. 6. If there is continued concern, recommend frontal and lateral chest radiographs or CT.
--- NOTE | 2019-11-11 18:41 | Cardiology Progress Note ---
Assessment/Plan Assessment/Plan 1. Septic shock likely urinary source . 2. Bacteremia. 3. Hypernatremia. 4. Status post acute renal failure. 5. Urinary tract infection with proteus 6. Thrombocytopenia. 7. seizure 8. tachy wbc sig elevated still no diarrhea to suggest cdiff but iv pressors had seizure today got medication now sedated as well ngt place for temp feeding pressors had to be switch last nite to dopamine due to [place] but now back to levophed covid isolation for PUI cxr personally reviewed tele personally reviewed ekg personally reviewed ekg reviewed appear possible atrial tachy with 2:1 block id noted on abx plt improved compared to yest nto febrile at the moment central line placed for pressors d/w rn still critically ill and a risk of dying no cpr no intubation Subjective ROS Limited/Unobtainable: Yes Objective Last 24 Hour Vital Signs Date Time Temp Pulse Resp B/P (MAP) Pulse Ox O2 Delivery O2 Flow Rate FiO2 11/11/19 18:00 82 26 97/38 (57) 97 11/11/19 17:45 79 26 88/54 (65) 95 11/11/19 17:30 79 26 79/38 (52) 94 11/11/19 17:00 77 27 84/37 (53) 94 11/11/19 16:30 74 24 120/62 (81) 97 11/11/19 16:00 73 11/11/19 16:00 97.6 75 29 107/91 (96) 81 11/11/19 15:30 81 25 87/21 (43) 95 11/11/19 15:00 87 22 91/28 (49) 94 11/11/19 14:30 88 23 158/97 (117) 92 11/11/19 14:00 88 23 128/100 (109) 94 11/11/19 13:30 84 26 95/52 (66) 95 11/11/19 13:00 90 30 100/64 (76) 91 11/11/19 12:30 85 29 117/80 (92) 95 11/11/19 12:00 83 11/11/19 12:00 97.6 73 30 94/67 (76) 98 11/11/19 11:30 80 28 146/108 (121) 99 11/11/19 11:03 133/106 11/11/19 11:00 166/67 11/11/19 11:00 74 22 166/67 (100) 97 11/11/19 10:45 133/97 11/11/19 10:30 142/92 11/11/19 10:30 73 22 142/92 (109) 92 11/11/19 10:15 133/106 11/11/19 10:00 118/43 11/11/19 10:00 81 30 118/43 (68) 94 11/11/19 09:30 113/62 11/11/19 09:30 57 26 113/62 (79) 98 11/11/19 09:15 116/103 11/11/19 09:00 83 30 137/84 (101) 97 11/11/19 09:00 137/84 11/11/19 08:30 62 28 131/108 (116) 99 11/11/19 08:25 105/52 11/11/19 08:00 97.6 67 27 109/38 (61) 97 11/11/19 08:00 60 11/11/19 08:00 109/38 11/11/19 07:30 134 25 100/58 (72) 98 11/11/19 07:00 105/52 11/11/19 07:00 139 22 105/52 (69) 92 11/11/19 06:45 140 21 109/45 (66) 87 11/11/19 06:30 136 23 102/72 (82) 92 11/11/19 06:15 137 29 96/65 (75) 91 11/11/19 06:00 92/63 11/11/19 06:00 132 31 123/73 (90) 94 11/11/19 05:45 134 31 106/70 (82) 96 11/11/19 05:30 138 29 100/68 (79) 98 11/11/19 05:15 141 43 100/55 (70) 97 11/11/19 05:00 138 24 96/75 (82) 94 11/11/19 05:00 96/75 11/11/19 04:45 142 27 108/59 (75) 92 11/11/19 04:30 138 21 111/67 (82) 92 11/11/19 04:20 138 39 125/111 (116) 90 11/11/19 04:15 138 25 126/102 (110) 95 11/11/19 04:02 112/62 11/11/19 04:00 101/82 11/11/19 04:00 97.5 137 28 101/82 (88) 95 11/11/19 04:00 Nasal Cannula 2.0 11/11/19 03:45 138 31 112/62 (79) 96 11/11/19 03:30 144 30 95/81 (86) 97 11/11/19 03:15 140 23 94/48 (63) 91 11/11/19 03:10 140 11/11/19 03:00 106/63 11/11/19 03:00 136 26 106/63 (77) 93 11/11/19 02:45 137 33 117/70 (86) 96 11/11/19 02:30 139 26 114/69 (84) 95 11/11/19 02:15 140 25 97/65 (76) 85 11/11/19 02:00 119/64 11/11/19 02:00 130 29 119/64 (82) 96 11/11/19 01:45 54 26 125/45 (71) 97 11/11/19 01:30 55 28 121/58 (79) 98 11/11/19 01:15 59 27 106/48 (67) 97 11/11/19 01:00 60 28 123/77 (92) 97 11/11/19 01:00 123/77 11/11/19 00:45 55 23 126/67 (86) 93 11/11/19 00:38 121/75 11/11/19 00:30 140 28 123/66 (85) 96 11/11/19 00:24 70/49 11/11/19 00:18 142 28 70/49 (56) 94 11/11/19 00:15 139 29 59/35 (43) 94 11/11/19 00:00 97.0 137 25 117/65 (82) 91 11/11/19 00:00 70/49 11/11/19 00:00 Nasal Cannula 2.0 11/10/19 23:45 139 27 115/69 (84) 97 11/10/19 23:39 139 11/10/19 23:30 140 32 102/62 (75) 96 11/10/19 23:15 139 39 94/77 (83) 93 5/26/20 23:00 143 31 110/66 (81) 95 11/10/19 23:00 110/66 11/10/19 22:45 116/94 11/10/19 22:45 144 27 116/94 (101) 92 11/10/19 22:30 151 24 106/58 (74) 91 11/10/19 22:15 111/68 11/10/19 22:15 152 27 111/66 (81) 91 11/10/19 22:00 64 23 95/53 (67) 96 11/10/19 22:00 95/53 11/10/19 21:45 60 20 119/50 (73) 95 11/10/19 21:30 61 21 108/58 (75) 97 11/10/19 21:15 61 23 101/51 (68) 99 11/10/19 21:00 93/69 11/10/19 21:00 56 24 105/53 (70) 99 11/10/19 20:45 59 22 93/69 (77) 99 11/10/19 20:30 57 23 105/30 (55) 99 11/10/19 20:23 56 19 97/63 (74) 100 11/10/19 20:15 60 19 67/45 (52) 99 11/10/19 20:00 Nasal Cannula 2.0 11/10/19 20:00 97.7 134 26 70/42 (51) 100 11/10/19 19:45 134 22 80/65 (70) 100 11/10/19 19:32 134 11/10/19 19:30 135 21 81/55 (64) 99 11/10/19 19:25 98 Nasal Cannula 2.0 28 11/10/19 19:05 133 24 102/78 (86) 100 11/10/19 19:00 134 20 79/31 (47) 99 11/10/19 18:51 134 23 92/63 (73) 100 11/10/19 18:45 136 20 86/70 (75) 99 11/10/19 18:44 136 23 79/60 (66) 100 11/10/19 18:39 76/63 General Appearance: no apparent distress, patient on isolation, isolation precautions Intake and Output 11/10/19 11/11/19 19:00 07:00 Intake Total 38.58 ml 1879.0786 ml Output Total 100 ml Balance 38.58 ml 1779.0786 ml IV Total 38.58 ml 1879.0786 ml Output Urine Total 100 ml # Voids 3 2 Laboratory Tests Test 11/11/19 03:20 White Blood Count 30.4 K/UL (4.8-10.8) *H Red Blood Count 4.17 M/UL (4.70-6.10) L Hemoglobin 13.9 G/DL (14.2-18.0) L Hematocrit 42.0 % (42.0-52.0) Mean Corpuscular Volume 101 FL (80-99) H Mean Corpuscular Hemoglobin 33.3 PG (27.0-31.0) H Mean Corpuscular Hemoglobin Concent 33.1 G/DL (32.0-36.0) Red Cell Distribution Width 13.7 % (11.6-14.8) Platelet Count 77 K/UL (150-450) #L Mean Platelet Volume 13.3 FL (6.5-10.1) H Neutrophils (%) (Auto) % (45.0-75.0) Lymphocytes (%) (Auto) % (20.0-45.0) Monocytes (%) (Auto) % (1.0-10.0) Eosinophils (%) (Auto) % (0.0-3.0) Basophils (%) (Auto) % (0.0-2.0) Differential Total Cells Counted 100 Neutrophils % (Manual) 93 % (45-75) H Lymphocytes % (Manual) 6 % (20-45) L Monocytes % (Manual) 1 % (1-10) Eosinophils % (Manual) 0 % (0-3) Basophils % (Manual) 0 % (0-2) Band Neutrophils 0 % (0-8) Platelet Estimate Decreased L Platelet Morphology Clumped Platelets Occasional Macrocytosis 1+ Sodium Level 141 MMOL/L (136-145) # Potassium Level 4.5 MMOL/L (3.5-5.1) Chloride Level 107 MMOL/L (98-107) Carbon Dioxide Level 24 MMOL/L (21-32) Anion Gap 10 mmol/L (5-15) Blood Urea Nitrogen 29 mg/dL (7-18) H Creatinine 2.0 MG/DL (0.55-1.30) H Estimat Glomerular Filtration Rate 40.5 mL/min (>60) Glucose Level 370 MG/DL (74-106) #H Calcium Level 7.9 MG/DL (8.5-10.1) L Phosphorus Level 3.0 MG/DL (2.5-4.9) Magnesium Level 1.8 MG/DL (1.8-2.4) Total Bilirubin 0.3 MG/DL (0.2-1.0) Aspartate Amino Transf (AST/SGOT) 28 U/L (15-37) Alanine Aminotransferase (ALT/SGPT) 29 U/L (12-78) Alkaline Phosphatase 70 U/L (46-116) C-Reactive Protein, Quantitative 28.9 mg/dL (0.00-0.90) H Pro-B-Type Natriuretic Peptide 3984 pg/mL (0-125) H Total Protein 7.2 G/DL (6.4-8.2) Albumin 1.8 G/DL (3.4-5.0) L Globulin 5.4 g/dL Albumin/Globulin Ratio 0.3 (1.0-2.7) L Microbiology Date/Time Source Procedure Growth Status 11/08/19 19:45 Blood Blood Culture - Preliminary Resulted 11/08/19 19:30 Blood Blood Culture - Preliminary Resulted 11/08/19 20:08 Nasal Nares MRSA Culture - Final Staphylococcus Aureus - Mrsa Complete 11/08/19 19:45 Urine,Clean Catch Urine Culture - Final Proteus Mirabilis Complete 11/08/19 20:08 Rectum - Final NO CARBAPENEM-RESISTANT ENTEROBACTERI... Complete 11/08/19 20:08 Rectum VRE Culture - Final Enterococcus Faecalis - Vre Complete Irving Hoffman MD November 11, 2019 18:41
[2019-11-11] MEDS: Dyna-Hex 2% Top Sol 2oz TOPIC SCH (20:38)
[2019-11-11] MEDS: DOPamine 400mg/250ml 250 ML IV SCH (20:39)
[2019-11-11] MEDS: Phenytoin 100 MG in NS 55 ML IVPB SCH (23:20)
[2019-11-12] VITALS (74 sets, daily range): BP systolic 78–144; BP diastolic 16–105
[2019-11-12] MEDS: Norepinephrine 4mg/NS Premix 250 ML IV SCH ×5 (04:21→20:03)
[2019-11-12 05:46] LABS: HEMATOCRIT 39.1 % (42.0-52.0); HEMOGLOBIN 12.7 G/DL (14.2-18.0); MEAN CORPUSCULAR VOLUME 104 FL (80-99); RED BLOOD COUNT 3.76 M/UL (4.70-6.10); RED CELL DISTRIBUTION WIDTH 14.3 % (11.6-14.8)
[2019-11-12 05:58] LABS: WHITE BLOOD COUNT 29.6 K/UL (4.8-10.8)
[2019-11-12 06:08] LABS: ALANINE AMINOTRANSFERASE 27 U/L (12-78); ALBUMIN/GLOBULIN RATIO 0.4 (1.0-2.7); ALKALINE PHOSPHATASE 63 U/L (46-116); ANION GAP 8 mmol/L (5-15); ASPARTATE AMINO TRANSFERASE 25 U/L (15-37); BILIRUBIN,TOTAL 0.3 MG/DL (0.2-1.0); BLOOD UREA NITROGEN 29 mg/dL (7-18); CALCIUM 8.1 MG/DL (8.5-10.1); CARBON DIOXIDE 27 MMOL/L (21-32); CHLORIDE 108 MMOL/L (98-107); CREATININE 2.1 MG/DL (0.55-1.30); POTASSIUM 5.2 MMOL/L (3.5-5.1); SODIUM 143 MMOL/L (136-145)
[2019-11-12 06:10] LABS: PHOSPHORUS 3.9 MG/DL (2.5-4.9)
[2019-11-12] MEDS: Hydrocortisone 100mg Inj IV SCH ×3 (06:27→22:28)
[2019-11-12] MEDS: Phenytoin 100 MG in NS 55 ML IVPB SCH ×3 (09:35→23:47)
[2019-11-12] MEDS: Midodrine 10mg tab ORAL SCH ×3 (09:35→17:59)
[2019-11-12] MEDS: Pantoprazole Inj IVP SCH ×2 (09:37→20:02)
[2019-11-12] MEDS: Docusate 100mg cap ORAL SCH ×3 (09:37→17:59)
[2019-11-12] MEDS: Meropenem 1 GM in NS 55 ML IVPB SCH ×2 (09:40→20:02)
[2019-11-12] MEDS: Enoxaparin 40mg Inj SUBQ SCH (09:41)
[2019-11-12] MEDS ORDERED: Vancomycin 1.5gm/NS Premix IVPB ONE (10:00)
[2019-11-12 10:12] LABS: PLATELET COUNT 166 K/UL (150-450)
--- NOTE | 2019-11-12 10:24 | Nephrology Progress Note ---
Assessment/Plan Problem List: (1) Renal failure (ARF), acute on chronic (2) Dehydration (3) Severe sepsis (4) Down syndrome (5) Hypothyroidism (6) Hypotension (7) DMII (diabetes mellitus, type 2) Assessment Renal failure most likely acute on chronic Renal failure has a major component of dehydration due to hypernatremia Sepsis and leukocytosis, possible pneumonia Anemia Elevated troponin 4+ proteinuria, UTI Suspected COVID-19 infection Diabetes mellitus Obstructive sleep apnea Down syndrome Hypothyroidism DNR/DNI Plan November 11: Status quo. Serum creatinine 2.1. Blood pressure remains low. Continue per consultants. Per order. November 10: Patient is now in ICU. Was transferred because of hypotension. Currently on 2 pressors. Patient DNR and DNI. Discussed with RN. Blood sugar elevated. Patient on IV hydrocortisone. Will change IV to half-normal saline. Will increase Midodrin to 10 mg 3 times a day. Continue to monitor electrolytes and renal parameters. Other measures: Synthroid IV Hydrate with D5W Monitor renal parameters Avoid nephrotoxic's Antibiotics Thyroid function tests Keep the blood pressure and blood sugar in check Serial troponin I and EKG Aspirin and nitrates Per orders Subjective ROS Limited/Unobtainable: Yes Objective Objective Last 24 Hour Vital Signs Date Time Temp Pulse Resp B/P (MAP) Pulse Ox O2 Delivery O2 Flow Rate FiO2 11/12/19 07:15 81 27 94/50 (65) 86 11/12/19 07:00 82 26 94/44 (61) 86 11/12/19 06:45 83 26 107/40 (62) 85 11/12/19 06:30 83 27 94/50 (65) 83 11/12/19 06:15 86 27 100/41 (60) 83 11/12/19 06:00 93 33 90/65 (73) 85 11/12/19 05:45 87 27 93/54 (67) 86 11/12/19 05:30 89 29 89/49 (62) 80 11/12/19 05:21 92 30 103/58 (73) 78 11/12/19 05:15 93 30 86/52 (63) 76 11/12/19 05:00 95 31 98/50 (66) 71 11/12/19 04:45 95 29 107/67 (80) 75 11/12/19 04:30 93 28 100/55 (70) 76 11/12/19 04:21 78/34 11/12/19 04:19 92 30 92/51 (65) 78 11/12/19 04:15 91 29 78/34 (49) 78 11/12/19 04:00 Non-Rebreather 11/12/19 04:00 98.0 93 28 92/31 (51) 80 11/12/19 03:57 93 11/12/19 03:45 82 32 108/54 (72) 49 11/12/19 03:30 99 33 139/105 (116) 59 11/12/19 03:15 101 35 141/96 (111) 80 11/12/19 03:00 100 32 121/67 (85) 85 11/12/19 02:58 97 32 112/79 (90) 85 11/12/19 02:45 96 31 87/16 (39) 93 11/12/19 02:30 96 32 90/47 (61) 95 11/12/19 02:15 93 32 129/83 (98) 97 11/12/19 02:00 88 27 82/32 (49) 100 11/12/19 01:45 86 27 113/87 (96) 98 11/12/19 01:30 82 27 105/45 (65) 92 11/12/19 01:15 89 30 126/88 (101) 99 11/12/19 01:00 88 28 122/103 (109) 98 11/12/19 00:45 88 28 117/64 (81) 95 11/12/19 00:30 84 27 107/60 (76) 99 11/12/19 00:15 75 28 90/53 (65) 100 11/12/19 00:00 98.6 74 25 91/45 (60) 100 11/12/19 00:00 Nasal Cannula 4.0 11/11/19 23:45 76 29 95/62 (73) 100 11/11/19 23:30 75 26 89/44 (59) 100 11/11/19 23:15 79 27 101/46 (64) 100 11/11/19 23:13 80 11/11/19 23:00 76 28 71/40 (50) 97 11/11/19 22:45 74 27 99/74 (82) 100 11/11/19 22:30 71 25 94/30 (51) 99 11/11/19 22:15 71 25 91/54 (66) 96 11/11/19 22:00 75 26 99/39 (59) 100 11/11/19 21:45 69 25 104/49 (67) 100 11/11/19 21:30 72 26 105/44 (64) 100 11/11/19 21:15 68 26 92/51 (65) 100 11/11/19 21:00 72 25 82/43 (56) 100 11/11/19 20:45 73 26 97/43 (61) 100 11/11/19 20:39 76/30 11/11/19 20:30 76 25 76/30 (45) 100 11/11/19 20:15 72 24 90/30 (50) 100 11/11/19 20:00 97.9 70 26 100/41 (60) 100 11/11/19 20:00 Nasal Cannula 4.0 11/11/19 19:45 70 26 86/35 (52) 100 11/11/19 19:30 69 11/11/19 18:45 97/39 11/11/19 18:30 76 26 83/11 (35) 100 11/11/19 18:00 82 26 97/38 (57) 97 11/11/19 17:45 79 26 88/54 (65) 95 11/11/19 17:30 79 26 79/38 (52) 94 11/11/19 17:15 76 27 95/29 (51) 96 11/11/19 17:00 77 27 84/37 (53) 94 11/11/19 16:45 74 22 76/36 (49) 100 11/11/19 16:30 74 24 120/62 (81) 97 11/11/19 16:00 73 11/11/19 16:00 97.6 75 29 107/91 (96) 81 11/11/19 15:30 81 25 87/21 (43) 95 11/11/19 15:00 87 22 91/28 (49) 94 11/11/19 14:30 88 23 158/97 (117) 92 11/11/19 14:00 88 23 128/100 (109) 94 11/11/19 13:30 84 26 95/52 (66) 95 11/11/19 13:00 90 30 100/64 (76) 91 11/11/19 12:30 85 29 117/80 (92) 95 11/11/19 12:00 83 11/11/19 12:00 97.6 73 30 94/67 (76) 98 11/11/19 11:30 80 28 146/108 (121) 99 11/11/19 11:03 133/106 11/11/19 11:00 166/67 11/11/19 11:00 74 22 166/67 (100) 97 11/11/19 10:45 133/97 11/11/19 10:30 142/92 11/11/19 10:30 73 22 142/92 (109) 92 11/11/19 10:15 133/106 Intake and Output 11/11/19 11/12/19 19:00 07:00 Intake Total 1162.403 ml 1567.785 ml Output Total 400 ml 1 ml Balance 762.403 ml 1566.785 ml IV Total 1162.403 ml 1567.785 ml Output Urine Total 400 ml 1 ml # Voids 151 Laboratory Tests 11/12/19 03:25: White Blood Count 29.6*H, Red Blood Count 3.76L, Hemoglobin 12.7L, Hematocrit 39.1L, Mean Corpuscular Volume 104H, Mean Corpuscular Hemoglobin 33.8H, Mean Corpuscular Hemoglobin Concent 32.4, Red Cell Distribution Width 14.3, Platelet Count 88L, Mean Platelet Volume 9.5, Neutrophils (%) (Auto) , Lymphocytes (%) ( Auto) , Monocytes (%) (Auto) , Eosinophils (%) (Auto) , Basophils (%) (Auto) , Differential Total Cells Counted 100, Neutrophils % (Manual) 80H, Lymphocytes % (Manual) 12L, Monocytes % (Manual) 8, Eosinophils % (Manual) 0, Basophils % ( Manual) 0, Band Neutrophils 0, Platelet Estimate Adequate, Platelet Morphology Normal, Clumped Platelets 2+, Anisocytosis 1+, Macrocytosis 1+, Erythrocyte Sedimentation Rate 85H, Sodium Level 143, Potassium Level 5.2H, Chloride Level 108H, Carbon Dioxide Level 27, Anion Gap 8, Blood Urea Nitrogen 29H, Creatinine 2.1H, Estimat Glomerular Filtration Rate 38.3, Glucose Level 335H, Calcium Level 8.1L, Phosphorus Level 3.9, Magnesium Level 2.0, Total Bilirubin 0.3, Aspartate Amino Transf (AST/SGOT) 25, Alanine Aminotransferase (ALT/SGPT) 27, Alkaline Phosphatase 63, Troponin I 0.100H, C-Reactive Protein, Quantitative 12.1H, Pro-B-Type Natriuretic Peptide 7935H, Total Protein 7.3, Albumin 2.0L, Globulin 5.3, Albumin/Globulin Ratio 0.4L, Thyroid Stimulating Hormone (TSH) 11.635H, Random Vancomycin Level 12.0 11/12/19 03:50: Arterial Blood pH 6.976*L, Arterial Blood Partial Pressure CO2 122.5*H, Arterial Blood Partial Pressure O2 54.3L, Arterial Blood HCO3 27.9H, Arterial Blood Oxygen Saturation 77.2*L, Arterial Blood Base Excess -6.6L, Rell Test Positive Height (Feet): 5 Height (Inches): 3.00 Weight (Pounds): 210 General Appearance: mild distress EENT: other - On nonrebreather mask Cardiovascular: regular rhythm Respiratory/Chest: decreased breath sounds Abdomen: soft Alexis Villagomez MD November 12, 2019 10:24
--- NOTE | 2019-11-12 11:13 | Pulmonolgy Critical Care Note ---
Critical Care - Asmt/Plan Problems: (1) Acute respiratory failure (2) Severe sepsis (3) Renal failure (ARF), acute on chronic (4) Seizure disorder (5) UTI (urinary tract infection) (6) COPD (chronic obstructive pulmonary disease) (7) DMII (diabetes mellitus, type 2) (8) Down syndrome (9) Hypothyroidism Respiratory: monitor respiratory rate, adjust FIO2, other - titrate bipap, repeat cxr in am Cardiac: continue to monitor HR/BP Renal: F/U I&O, keep IV fluid, check electrolytes Infectious Disease: check cultures, continue antibiotics Endocrine: monitor blood sugar Hematologic: monitor H/H, transfuse if hgb<8.5 Neurologic: PRN Ativan, PRN Morphine, keep patient comfortable Prophylaxis: Heparin Disposition: keep in ICU Time Spent (Minutes): 40 Notes Reviewed: cardio Discussed with: nurses, consultants, 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 training - Objective Last 24 Hour Vital Signs Date Time Temp Pulse Resp B/P (MAP) Pulse Ox O2 Delivery O2 Flow Rate FiO2 11/12/19 10:00 80 24 107/81 (90) 93 11/12/19 09:30 78 27 105/60 (75) 94 11/12/19 09:00 107/81 11/12/19 09:00 83 27 85/31 (49) 88 11/12/19 08:30 80 26 110/58 (75) 92 11/12/19 08:00 Non-Rebreather 11/12/19 08:00 98.5 80 26 97/45 (62) 85 11/12/19 08:00 77 11/12/19 07:15 81 27 94/50 (65) 86 11/12/19 07:00 82 26 94/44 (61) 86 11/12/19 06:45 83 26 107/40 (62) 85 11/12/19 06:30 83 27 94/50 (65) 83 11/12/19 06:15 86 27 100/41 (60) 83 11/12/19 06:00 93 33 90/65 (73) 85 11/12/19 05:45 87 27 93/54 (67) 86 11/12/19 05:30 89 29 89/49 (62) 80 11/12/19 05:21 92 30 103/58 (73) 78 5/28/20 05:15 93 30 86/52 (63) 76 11/12/19 05:00 95 31 98/50 (66) 71 11/12/19 04:45 95 29 107/67 (80) 75 11/12/19 04:30 93 28 100/55 (70) 76 11/12/19 04:21 78/34 11/12/19 04:19 92 30 92/51 (65) 78 11/12/19 04:15 91 29 78/34 (49) 78 11/12/19 04:00 Non-Rebreather 11/12/19 04:00 98.0 93 28 92/31 (51) 80 11/12/19 03:57 93 11/12/19 03:45 82 32 108/54 (72) 49 11/12/19 03:30 99 33 139/105 (116) 59 11/12/19 03:15 101 35 141/96 (111) 80 11/12/19 03:00 100 32 121/67 (85) 85 11/12/19 02:58 97 32 112/79 (90) 85 11/12/19 02:45 96 31 87/16 (39) 93 11/12/19 02:30 96 32 90/47 (61) 95 11/12/19 02:15 93 32 129/83 (98) 97 11/12/19 02:00 88 27 82/32 (49) 100 11/12/19 01:45 86 27 113/87 (96) 98 11/12/19 01:30 82 27 105/45 (65) 92 11/12/19 01:15 89 30 126/88 (101) 99 11/12/19 01:00 88 28 122/103 (109) 98 11/12/19 00:45 88 28 117/64 (81) 95 11/12/19 00:30 84 27 107/60 (76) 99 11/12/19 00:15 75 28 90/53 (65) 100 11/12/19 00:00 98.6 74 25 91/45 (60) 100 11/12/19 00:00 Nasal Cannula 4.0 11/11/19 23:45 76 29 95/62 (73) 100 11/11/19 23:30 75 26 89/44 (59) 100 11/11/19 23:15 79 27 101/46 (64) 100 11/11/19 23:13 80 11/11/19 23:00 76 28 71/40 (50) 97 11/11/19 22:45 74 27 99/74 (82) 100 11/11/19 22:30 71 25 94/30 (51) 99 11/11/19 22:15 71 25 91/54 (66) 96 11/11/19 22:00 75 26 99/39 (59) 100 11/11/19 21:45 69 25 104/49 (67) 100 11/11/19 21:30 72 26 105/44 (64) 100 11/11/19 21:15 68 26 92/51 (65) 100 11/11/19 21:00 72 25 82/43 (56) 100 11/11/19 20:45 73 26 97/43 (61) 100 11/11/19 20:39 76/30 11/11/19 20:30 76 25 76/30 (45) 100 11/11/19 20:15 72 24 90/30 (50) 100 11/11/19 20:00 97.9 70 26 100/41 (60) 100 11/11/19 20:00 Nasal Cannula 4.0 11/11/19 19:45 70 26 86/35 (52) 100 11/11/19 19:30 69 11/11/19 18:45 97/39 11/11/19 18:30 76 26 83/11 (35) 100 11/11/19 18:00 82 26 97/38 (57) 97 11/11/19 17:45 79 26 88/54 (65) 95 11/11/19 17:30 79 26 79/38 (52) 94 11/11/19 17:15 76 27 95/29 (51) 96 11/11/19 17:00 77 27 84/37 (53) 94 11/11/19 16:45 74 22 76/36 (49) 100 11/11/19 16:30 74 24 120/62 (81) 97 11/11/19 16:00 73 11/11/19 16:00 97.6 75 29 107/91 (96) 81 11/11/19 15:30 81 25 87/21 (43) 95 11/11/19 15:00 87 22 91/28 (49) 94 11/11/19 14:30 88 23 158/97 (117) 92 11/11/19 14:00 88 23 128/100 (109) 94 11/11/19 13:30 84 26 95/52 (66) 95 11/11/19 13:00 90 30 100/64 (76) 91 11/11/19 12:30 85 29 117/80 (92) 95 11/11/19 12:00 83 11/11/19 12:00 97.6 73 30 94/67 (76) 98 11/11/19 11:30 80 28 146/108 (121) 99 Status: sedated Condition: critical HEENT: atraumatic, normocephalic Neck: full ROM Lungs: rales, rhonchi Heart: HR/BP stable Abdomen: soft Extremities: no C/C/E Micro: Microbiology Date/Time Source Procedure Growth Status 11/10/19 20:15 Blood Blood Culture - Preliminary NO GROWTH AFTER 24 HOURS Resulted 11/10/19 20:05 Blood Blood Culture - Preliminary NO GROWTH AFTER 24 HOURS Resulted Accucheck: 188 Critical Care - Subjective ROS Limited/Unobtainable: Yes Interval Events: On Bipap, looks comfortable now. FI02: 28 I&O: Intake and Output 11/11/19 11/12/19 19:00 07:00 Intake Total 1162.403 ml 1567.785 ml Output Total 400 ml 1 ml Balance 762.403 ml 1566.785 ml IV Total 1162.403 ml 1567.785 ml Output Urine Total 400 ml 1 ml # Voids 151 Labs: Laboratory Tests Test 11/12/19 03:25 11/12/19 03:50 White Blood Count 29.6 K/UL (4.8-10.8) *H Red Blood Count 3.76 M/UL (4.70-6.10) L Hemoglobin 12.7 G/DL (14.2-18.0) L Hematocrit 39.1 % (42.0-52.0) L Mean Corpuscular Volume 104 FL (80-99) H Mean Corpuscular Hemoglobin 33.8 PG (27.0-31.0) H Mean Corpuscular Hemoglobin Concent 32.4 G/DL (32.0-36.0) Red Cell Distribution Width 14.3 % (11.6-14.8) Platelet Count 166 K/UL (150-450) # Mean Platelet Volume 9.5 FL (6.5-10.1) Neutrophils (%) (Auto) % (45.0-75.0) Lymphocytes (%) (Auto) % (20.0-45.0) Monocytes (%) (Auto) % (1.0-10.0) Eosinophils (%) (Auto) % (0.0-3.0) Basophils (%) (Auto) % (0.0-2.0) Differential Total Cells Counted 100 Neutrophils % (Manual) 80 % (45-75) H Lymphocytes % (Manual) 12 % (20-45) L Monocytes % (Manual) 8 % (1-10) Eosinophils % (Manual) 0 % (0-3) Basophils % (Manual) 0 % (0-2) Band Neutrophils 0 % (0-8) Platelet Estimate Adequate Platelet Morphology Normal Clumped Platelets 2+ Anisocytosis 1+ Macrocytosis 1+ Erythrocyte Sedimentation Rate 85 MM/HR (0-20) H Sodium Level 143 MMOL/L (136-145) Potassium Level 5.2 MMOL/L (3.5-5.1) H Chloride Level 108 MMOL/L (98-107) H Carbon Dioxide Level 27 MMOL/L (21-32) Anion Gap 8 mmol/L (5-15) Blood Urea Nitrogen 29 mg/dL (7-18) H Creatinine 2.1 MG/DL (0.55-1.30) H Estimat Glomerular Filtration Rate 38.3 mL/min (>60) Glucose Level 335 MG/DL (74-106) H Calcium Level 8.1 MG/DL (8.5-10.1) L Phosphorus Level 3.9 MG/DL (2.5-4.9) Magnesium Level 2.0 MG/DL (1.8-2.4) Total Bilirubin 0.3 MG/DL (0.2-1.0) Aspartate Amino Transf (AST/SGOT) 25 U/L (15-37) Alanine Aminotransferase (ALT/SGPT) 27 U/L (12-78) Alkaline Phosphatase 63 U/L (46-116) Troponin I 0.100 ng/mL (0.000-0.056) C-Reactive Protein, Quantitative 12.1 mg/dL (0.00-0.90) H Pro-B-Type Natriuretic Peptide 7935 pg/mL (0-125) H Total Protein 7.3 G/DL (6.4-8.2) Albumin 2.0 G/DL (3.4-5.0) L Globulin 5.3 g/dL Albumin/Globulin Ratio 0.4 (1.0-2.7) L Thyroid Stimulating Hormone (TSH) 11.635 uiU/mL (0.358-3.740) Random Vancomycin Level 12.0 ug/mL Arterial Blood pH 6.976 (7.350-7.450) Arterial Blood Partial Pressure CO2 122.5 mmHg (35.0-45.0) *H Arterial Blood Partial Pressure O2 54.3 mmHg (75.0-100.0) L Arterial Blood HCO3 27.9 mmol/L (22.0-26.0) H Arterial Blood Oxygen Saturation 77.2 % (95-100) *L Arterial Blood Base Excess -6.6 (-2-2) L Rell Test Positive Jesús Mustafa MD November 12, 2019 11:13
--- NOTE | 2019-11-12 15:06 | Infectious Diseases Prog Note ---
Assessment/Plan Assessment/Plan Assessment: Septic Shock UTI CONS bacteremia -likely contaminant Gram neg bacteremia -11/07 Bcx 2/4 CONS, 1/4 GNRs; 11/09 Bcx NTD -u/a wbc tntc, nit +, leuk +3; ucx >100k P, mirabilis (I levaquin; otherwise S) Probable PNA- r/o COVID19 Acute hypoxic respiratory failure- on NRB -11/10 CXR: Obscuration of left hemidiaphragm, may indicate developing basilar infiltrate and atelectasis Bilateral costophrenic angle blunting, small pleural effusions likely. Increased perihilar interstitial infiltrates versus edema. Borderline cardiomegaly -11/07 CXR: Low lung volumes with bronchovascular crowding. Otherwise no acute cardiopulmonary disease. SARS-COV2 PCR neg FEver; SP- Hyperleukocytosis; worsened, now in the 30s Lymphopenia Thrombocytopenia, worsening, now severe YOEL, improving Sacral deep tissue injury- no signs of infection Down Syndrome COPD Dm2 hypothryoidism SNF resident ([facility]) Plan: -Continue empiric IV Vancomycin #5 -Continue Meropenem #3 (abx d #5) given worsening HD decompensation -Give one time dose of amikacin -11/09 SP Zosyn #2 -11/07 SP Ceftriaxone x1 -f/u cx -Monitor CBC/CMP, temperature -COVID19 isolation and testing; send 2nd sample -f/u Bcx x2 -once Cr improve, will get CT c/abd/p w/ given severe leukocytosis -CXR, sp cx Thank you for consulting [facility]. Will continue to follow along with you. Subjective Allergies: Coded Allergies: ALLOPURINOL (Verified Allergy, Unknown, 12/22/15) Subjective afebrile >72hrs pt desaturated to the 40s, verty thick secretions were suctioned and was placed on NRB persistent leukocytosis Levo increased to 16 Objective Vital Signs Last 24 Hour Vital Signs Date Time Temp Pulse Resp B/P (MAP) Pulse Ox O2 Delivery O2 Flow Rate FiO2 11/12/19 13:24 107/81 11/12/19 12:00 60 11/12/19 10:00 80 24 107/81 (90) 93 11/12/19 09:30 78 27 105/60 (75) 94 11/12/19 09:00 107/81 11/12/19 09:00 83 27 85/31 (49) 88 11/12/19 08:30 80 26 110/58 (75) 92 11/12/19 08:00 Non-Rebreather 11/12/19 08:00 98.5 80 26 97/45 (62) 85 11/12/19 08:00 77 11/12/19 07:15 81 27 94/50 (65) 86 11/12/19 07:00 82 26 94/44 (61) 86 11/12/19 06:45 83 26 107/40 (62) 85 11/12/19 06:30 83 27 94/50 (65) 83 11/12/19 06:15 86 27 100/41 (60) 83 11/12/19 06:00 93 33 90/65 (73) 85 11/12/19 05:45 87 27 93/54 (67) 86 11/12/19 05:30 89 29 89/49 (62) 80 11/12/19 05:21 92 30 103/58 (73) 78 11/12/19 05:15 93 30 86/52 (63) 76 11/12/19 05:00 95 31 98/50 (66) 71 11/12/19 04:45 95 29 107/67 (80) 75 11/12/19 04:30 93 28 100/55 (70) 76 11/12/19 04:21 78/34 11/12/19 04:19 92 30 92/51 (65) 78 11/12/19 04:15 91 29 78/34 (49) 78 11/12/19 04:00 Non-Rebreather 11/12/19 04:00 98.0 93 28 92/31 (51) 80 11/12/19 03:57 93 11/12/19 03:45 82 32 108/54 (72) 49 11/12/19 03:30 99 33 139/105 (116) 59 11/12/19 03:15 101 35 141/96 (111) 80 11/12/19 03:00 100 32 121/67 (85) 85 11/12/19 02:58 97 32 112/79 (90) 85 11/12/19 02:45 96 31 87/16 (39) 93 11/12/19 02:30 96 32 90/47 (61) 95 11/12/19 02:15 93 32 129/83 (98) 97 11/12/19 02:00 88 27 82/32 (49) 100 11/12/19 01:45 86 27 113/87 (96) 98 11/12/19 01:30 82 27 105/45 (65) 92 11/12/19 01:15 89 30 126/88 (101) 99 11/12/19 01:00 88 28 122/103 (109) 98 11/12/19 00:45 88 28 117/64 (81) 95 11/12/19 00:30 84 27 107/60 (76) 99 11/12/19 00:15 75 28 90/53 (65) 100 11/12/19 00:00 98.6 74 25 91/45 (60) 100 11/12/19 00:00 Nasal Cannula 4.0 11/11/19 23:45 76 29 95/62 (73) 100 11/11/19 23:30 75 26 89/44 (59) 100 11/11/19 23:15 79 27 101/46 (64) 100 11/11/19 23:13 80 11/11/19 23:00 76 28 71/40 (50) 97 11/11/19 22:45 74 27 99/74 (82) 100 11/11/19 22:30 71 25 94/30 (51) 99 11/11/19 22:15 71 25 91/54 (66) 96 11/11/19 22:00 75 26 99/39 (59) 100 11/11/19 21:45 69 25 104/49 (67) 100 11/11/19 21:30 72 26 105/44 (64) 100 11/11/19 21:15 68 26 92/51 (65) 100 11/11/19 21:00 72 25 82/43 (56) 100 11/11/19 20:45 73 26 97/43 (61) 100 11/11/19 20:39 76/30 11/11/19 20:30 76 25 76/30 (45) 100 11/11/19 20:15 72 24 90/30 (50) 100 11/11/19 20:00 97.9 70 26 100/41 (60) 100 11/11/19 20:00 Nasal Cannula 4.0 11/11/19 19:45 70 26 86/35 (52) 100 11/11/19 19:30 69 11/11/19 18:45 97/39 11/11/19 18:30 76 26 83/11 (35) 100 11/11/19 18:00 82 26 97/38 (57) 97 11/11/19 17:45 79 26 88/54 (65) 95 11/11/19 17:30 79 26 79/38 (52) 94 11/11/19 17:15 76 27 95/29 (51) 96 11/11/19 17:00 77 27 84/37 (53) 94 11/11/19 16:45 74 22 76/36 (49) 100 11/11/19 16:30 74 24 120/62 (81) 97 11/11/19 16:00 73 11/11/19 16:00 97.6 75 29 107/91 (96) 81 11/11/19 15:30 81 25 87/21 (43) 95 11/11/19 15:00 87 22 91/28 (49) 94 Height (Feet): 5 Height (Inches): 3.00 Weight (Pounds): 211 Objective not examined to limit COVID19 exposure Microbiology Date/Time Source Procedure Growth Status 11/10/19 20:15 Blood Blood Culture - Preliminary NO GROWTH AFTER 24 HOURS Resulted 11/10/19 20:05 Blood Blood Culture - Preliminary NO GROWTH AFTER 24 HOURS Resulted Laboratory Tests Test 11/12/19 03:25 11/12/19 03:50 11/12/19 13:15 White Blood Count 29.6 K/UL (4.8-10.8) *H Red Blood Count 3.76 M/UL (4.70-6.10) L Hemoglobin 12.7 G/DL (14.2-18.0) L Hematocrit 39.1 % (42.0-52.0) L Mean Corpuscular Volume 104 FL (80-99) H Mean Corpuscular Hemoglobin 33.8 PG (27.0-31.0) H Mean Corpuscular Hemoglobin Concent 32.4 G/DL (32.0-36.0) Red Cell Distribution Width 14.3 % (11.6-14.8) Platelet Count 166 K/UL (150-450) # Mean Platelet Volume 9.5 FL (6.5-10.1) Neutrophils (%) (Auto) % (45.0-75.0) Lymphocytes (%) (Auto) % (20.0-45.0) Monocytes (%) (Auto) % (1.0-10.0) Eosinophils (%) (Auto) % (0.0-3.0) Basophils (%) (Auto) % (0.0-2.0) Differential Total Cells Counted 100 Neutrophils % (Manual) 80 % (45-75) H Lymphocytes % (Manual) 12 % (20-45) L Monocytes % (Manual) 8 % (1-10) Eosinophils % (Manual) 0 % (0-3) Basophils % (Manual) 0 % (0-2) Band Neutrophils 0 % (0-8) Platelet Estimate Adequate Platelet Morphology Normal Clumped Platelets 2+ Anisocytosis 1+ Macrocytosis 1+ Erythrocyte Sedimentation Rate 85 MM/HR (0-20) H Sodium Level 143 MMOL/L (136-145) Potassium Level 5.2 MMOL/L (3.5-5.1) H Chloride Level 108 MMOL/L (98-107) H Carbon Dioxide Level 27 MMOL/L (21-32) Anion Gap 8 mmol/L (5-15) Blood Urea Nitrogen 29 mg/dL (7-18) H Creatinine 2.1 MG/DL (0.55-1.30) H Estimat Glomerular Filtration Rate 38.3 mL/min (>60) Glucose Level 335 MG/DL (74-106) H Calcium Level 8.1 MG/DL (8.5-10.1) L Phosphorus Level 3.9 MG/DL (2.5-4.9) Magnesium Level 2.0 MG/DL (1.8-2.4) Total Bilirubin 0.3 MG/DL (0.2-1.0) Aspartate Amino Transf (AST/SGOT) 25 U/L (15-37) Alanine Aminotransferase (ALT/SGPT) 27 U/L (12-78) Alkaline Phosphatase 63 U/L (46-116) Troponin I 0.100 ng/mL (0.000-0.056) C-Reactive Protein, Quantitative 12.1 mg/dL (0.00-0.90) H Pro-B-Type Natriuretic Peptide 7935 pg/mL (0-125) H Total Protein 7.3 G/DL (6.4-8.2) Albumin 2.0 G/DL (3.4-5.0) L Globulin 5.3 g/dL Albumin/Globulin Ratio 0.4 (1.0-2.7) L Thyroid Stimulating Hormone (TSH) 11.635 uiU/mL (0.358-3.740) Random Vancomycin Level 12.0 ug/mL Arterial Blood pH 6.976 (7.350-7.450) 7.217 (7.350-7.450) Arterial Blood Partial Pressure CO2 122.5 mmHg (35.0-45.0) *H 62.6 mmHg (35.0-45.0) *H Arterial Blood Partial Pressure O2 54.3 mmHg (75.0-100.0) L 70.6 mmHg (75.0-100.0) L Arterial Blood HCO3 27.9 mmol/L (22.0-26.0) H 24.9 mmol/L (22.0-26.0) Arterial Blood Oxygen Saturation 77.2 % (95-100) *L 93.7 % (95-100) L Arterial Blood Base Excess -6.6 (-2-2) L -3.8 (-2-2) L Rell Test Positive Positive Current Medications Medications (Trade) Dose Ordered Sig/Femi Route PRN Reason Start Time Stop Time Status Last Admin Dose Admin Aspirin (ASA) 325 mg DAILY ORAL 11/11/19 09:00 12/24/19 14:44 11/12/19 09:35 Chlorhexidine Gluconate (Nilda-Hex 2%) 1 applic DAILY@2000 TOPIC 11/10/19 20:15 02/08/20 20:14 11/11/19 20:38 Docusate Sodium (Colace) 100 mg THREE TIMES A DAY ORAL 11/11/19 09:00 12/09/19 17:59 11/12/19 13:24 Dopamine HCl/ Dextrose 250 ml @ 0 mls/hr Q24H IV 11/10/19 20:42 02/08/20 20:41 11/10/19 21:00 Enoxaparin Sodium (Lovenox) 40 mg DAILY SUBQ 11/13/19 09:00 02/07/20 08:59 Hydrocortisone (Solu-CORTEF) 100 mg EVERY 8 HOURS IV 11/10/19 22:00 02/08/20 13:59 11/12/19 13:24 Levothyroxine Sodium (Synthroid) 50 mcg DAILY IV 11/11/19 09:00 12/10/19 09:29 11/12/19 09:37 Lorazepam (Ativan 2mg/ml 1ml) 1 mg Q1H PRN IV For Seizures 11/11/19 13:15 11/18/19 13:14 Meropenem 1 gm/ Sodium Chloride 55 ml @ 110 mls/hr EVERY 12 HOURS IVPB 11/10/19 21:00 11/15/19 20:59 11/12/19 09:40 Midodrine (Pro-Amatine) 10 mg THREE TIMES A DAY ORAL 11/11/19 13:00 02/07/20 14:44 11/12/19 13:23 Nitroglycerin (Ntg) 1 patch Q24H TDERMAL 11/11/19 16:00 12/09/19 15:59 Norepinephrine Bitartrate 250 ml @ 0 mls/hr Q24H IV 11/10/19 18:30 02/08/20 18:29 11/12/19 13:24 Pantoprazole (Protonix) 40 mg EVERY 12 HOURS IVP 11/10/19 21:00 12/09/19 14:44 11/12/19 09:37 Phenytoin 100 mg/ Sodium Chloride 57 ml @ 114 mls/hr [id number] PHENYTOIN IVPB 11/12/19 00:00 12/12/19 00:00 11/12/19 09:35 Sodium Chloride 1,000 ml @ 100 mls/hr Q10H IV 11/11/19 11:00 12/11/19 10:59 11/12/19 06:27 Vancomycin HCl (Vanco rx to dose) 1 ea DAILY PRN MISC Rx to dose 11/11/19 09:00 12/09/19 08:59 Polly Fuentes M.D. November 12, 2019 15:06
[2019-11-12] MEDS ORDERED: Amikacin Rx to dose MISC PRN (15:15)
[2019-11-12] MEDS: Nitroglycerin Patch 0.1mg/hr TDERMAL SCH (16:00)
--- NOTE | 2019-11-12 16:48 | Diagnostic Imaging Report ---
Procedure: XRAY Chest 1v Reason for study: Reason For Exam: COUGH Comparison films: None. FINDINGS: There is an NG tube in the stomach. Vascularity is normal. There are bibasilar infiltrates increased compared to prior exam. Cardiac and mediastinal silhouette are within normal limits. CP angles are sharp. The bony thorax appear unremarkable. IMPRESSION: New NG tube in stomach. Increased bibasilar infiltrates.
[2019-11-12] MEDS ORDERED: Amikacin 1,000 MG in D5W 110 ML IV SCH (17:00)
--- NOTE | 2019-11-12 17:17 | Internal Med Progress Note ---
Subjective Date of Service: November 12, 2019 Physician Name JenniferLuis Attending Physician Davon Falk MD Current Medications Medications (Trade) Dose Ordered Sig/Femi Route PRN Reason Start Time Stop Time Status Last Admin Dose Admin Amikacin Protocol (Amikacin pharmacy to dose) 1 ea DAILY PRN MISC Per rx protocol 11/12/19 15:15 12/12/19 15:14 Amikacin Sulfate 1000 mg/Dextrose 114 ml @ 200 mls/hr Q48H IV 11/12/19 17:00 11/19/19 16:59 11/12/19 16:15 Aspirin (ASA) 325 mg DAILY ORAL 11/11/19 09:00 12/24/19 14:44 11/12/19 09:35 Chlorhexidine Gluconate (Nilda-Hex 2%) 1 applic DAILY@2000 TOPIC 11/10/19 20:15 02/08/20 20:14 11/11/19 20:38 Docusate Sodium (Colace) 100 mg THREE TIMES A DAY ORAL 11/11/19 09:00 12/09/19 17:59 11/12/19 13:24 Dopamine HCl/ Dextrose 250 ml @ 0 mls/hr Q24H IV 11/10/19 20:42 02/08/20 20:41 11/10/19 21:00 Enoxaparin Sodium (Lovenox) 40 mg DAILY SUBQ 11/13/19 09:00 02/07/20 08:59 Hydrocortisone (Solu-CORTEF) 100 mg EVERY 8 HOURS IV 11/10/19 22:00 02/08/20 13:59 11/12/19 13:24 Levothyroxine Sodium (Synthroid) 50 mcg DAILY IV 11/11/19 09:00 12/10/19 09:29 11/12/19 09:37 Lorazepam (Ativan 2mg/ml 1ml) 1 mg Q1H PRN IV For Seizures 11/11/19 13:15 11/18/19 13:14 Meropenem 1 gm/ Sodium Chloride 55 ml @ 110 mls/hr EVERY 12 HOURS IVPB 11/10/19 21:00 11/15/19 20:59 11/12/19 09:40 Midodrine (Pro-Amatine) 10 mg THREE TIMES A DAY ORAL 11/11/19 13:00 02/07/20 14:44 11/12/19 13:23 Nitroglycerin (Ntg) 1 patch Q24H TDERMAL 11/11/19 16:00 12/09/19 15:59 Norepinephrine Bitartrate 250 ml @ 0 mls/hr Q24H IV 11/10/19 18:30 02/08/20 18:29 11/12/19 16:15 Pantoprazole (Protonix) 40 mg EVERY 12 HOURS IVP 11/10/19 21:00 12/09/19 14:44 11/12/19 09:37 Phenytoin 100 mg/ Sodium Chloride 57 ml @ 114 mls/hr [id number] PHENYTOIN IVPB 11/12/19 00:00 12/12/19 00:00 11/12/19 16:15 Sodium Chloride 1,000 ml @ 100 mls/hr Q10H IV 11/11/19 11:00 12/11/19 10:59 11/12/19 16:15 Vancomycin HCl (Vanco rx to dose) 1 ea DAILY PRN MISC Rx to dose 11/11/19 09:00 12/09/19 08:59 Allergies: Coded Allergies: ALLOPURINOL (Verified Allergy, Unknown, 12/22/15) ROS Limited/Unobtainable: Yes Subjective 69YO M with Down's syndrome admitted with fever. Now UTI and sepsis. Cover for Int Med-Dr Falk. ICU. Off pressors Objective Last Vital Signs Date Time Temp Pulse Resp B/P (MAP) Pulse Ox O2 Delivery O2 Flow Rate FiO2 11/12/19 16:15 130/44 11/12/19 16:00 81 24 97 11/12/19 16:00 Non-Rebreather 11/12/19 15:29 50 11/12/19 08:00 98.5 11/12/19 00:00 4.0 Laboratory Tests Test 11/12/19 03:25 11/12/19 03:50 11/12/19 13:15 White Blood Count 29.6 K/UL (4.8-10.8) *H Red Blood Count 3.76 M/UL (4.70-6.10) L Hemoglobin 12.7 G/DL (14.2-18.0) L Hematocrit 39.1 % (42.0-52.0) L Mean Corpuscular Volume 104 FL (80-99) H Mean Corpuscular Hemoglobin 33.8 PG (27.0-31.0) H Mean Corpuscular Hemoglobin Concent 32.4 G/DL (32.0-36.0) Red Cell Distribution Width 14.3 % (11.6-14.8) Platelet Count 166 K/UL (150-450) # Mean Platelet Volume 9.5 FL (6.5-10.1) Neutrophils (%) (Auto) % (45.0-75.0) Lymphocytes (%) (Auto) % (20.0-45.0) Monocytes (%) (Auto) % (1.0-10.0) Eosinophils (%) (Auto) % (0.0-3.0) Basophils (%) (Auto) % (0.0-2.0) Differential Total Cells Counted 100 Neutrophils % (Manual) 80 % (45-75) H Lymphocytes % (Manual) 12 % (20-45) L Monocytes % (Manual) 8 % (1-10) Eosinophils % (Manual) 0 % (0-3) Basophils % (Manual) 0 % (0-2) Band Neutrophils 0 % (0-8) Platelet Estimate Adequate Platelet Morphology Normal Clumped Platelets 2+ Anisocytosis 1+ Macrocytosis 1+ Erythrocyte Sedimentation Rate 85 MM/HR (0-20) H Sodium Level 143 MMOL/L (136-145) Potassium Level 5.2 MMOL/L (3.5-5.1) H Chloride Level 108 MMOL/L (98-107) H Carbon Dioxide Level 27 MMOL/L (21-32) Anion Gap 8 mmol/L (5-15) Blood Urea Nitrogen 29 mg/dL (7-18) H Creatinine 2.1 MG/DL (0.55-1.30) H Estimat Glomerular Filtration Rate 38.3 mL/min (>60) Glucose Level 335 MG/DL (74-106) H Calcium Level 8.1 MG/DL (8.5-10.1) L Phosphorus Level 3.9 MG/DL (2.5-4.9) Magnesium Level 2.0 MG/DL (1.8-2.4) Total Bilirubin 0.3 MG/DL (0.2-1.0) Aspartate Amino Transf (AST/SGOT) 25 U/L (15-37) Alanine Aminotransferase (ALT/SGPT) 27 U/L (12-78) Alkaline Phosphatase 63 U/L (46-116) Troponin I 0.100 ng/mL (0.000-0.056) C-Reactive Protein, Quantitative 12.1 mg/dL (0.00-0.90) H Pro-B-Type Natriuretic Peptide 7935 pg/mL (0-125) H Total Protein 7.3 G/DL (6.4-8.2) Albumin 2.0 G/DL (3.4-5.0) L Globulin 5.3 g/dL Albumin/Globulin Ratio 0.4 (1.0-2.7) L Thyroid Stimulating Hormone (TSH) 11.635 uiU/mL (0.358-3.740) Random Vancomycin Level 12.0 ug/mL Arterial Blood pH 6.976 (7.350-7.450) 7.217 (7.350-7.450) Arterial Blood Partial Pressure CO2 122.5 mmHg (35.0-45.0) *H 62.6 mmHg (35.0-45.0) *H Arterial Blood Partial Pressure O2 54.3 mmHg (75.0-100.0) L 70.6 mmHg (75.0-100.0) L Arterial Blood HCO3 27.9 mmol/L (22.0-26.0) H 24.9 mmol/L (22.0-26.0) Arterial Blood Oxygen Saturation 77.2 % (95-100) *L 93.7 % (95-100) L Arterial Blood Base Excess -6.6 (-2-2) L -3.8 (-2-2) L Rell Test Positive Positive Microbiology Date/Time Source Procedure Growth Status 11/10/19 20:15 Blood Blood Culture - Preliminary NO GROWTH AFTER 24 HOURS Resulted 11/10/19 20:05 Blood Blood Culture - Preliminary NO GROWTH AFTER 24 HOURS Resulted Intake and Output 11/11/19 11/12/19 19:00 07:00 Intake Total 1162.403 ml 1567.785 ml Output Total 400 ml 1 ml Balance 762.403 ml 1566.785 ml IV Total 1162.403 ml 1567.785 ml Output Urine Total 400 ml 1 ml # Voids 151 Objective PHYSICAL EXAMINATION: GENERAL: Patient is a well-developed, well-nourished obese male, in no apparent distress. HEENT: Eyes, pupils are equal and responsive to light and accommodation. Extraocular movements are intact. NECK: Supple without lymphadenopathy. CHEST: Non rebreather; Lungs with bilateral wheezes and crackles CARDIOVASCULAR: Regular rhythm and rate. S1, S2 are normal without murmurs, rubs, or gallops. ABDOMEN: Soft, nontender, nondistended. Positive bowel sounds. No evidence of hepatosplenomegaly. Currently, no rebound or guarding noted. EXTREMITIES: Negative for clubbing, cyanosis, or edema. RECTAL/GENITAL: Not performed. NEUROLOGIC: Cranial nerves II through XII are grossly intact without focal deficits. Motor strength is 5/5 bilaterally. Deep tendon reflexes are 2+ plantar. Assessment/Plan Assessment/Plan ASSESSMENT: This is a 69-year-old male. 1. Urinary tract infection=proteus mirabilis 2. Fever. 3. Leukocytosis. 4. Thrombocytopenia. 5. Renal failure. 6. Asthma. 7. Hypothyroidism. 8. Obesity. 9. Down syndrome. 10. severe sepsis=gram pos cocci; gram neg criselda 11. Hypotension TREATMENT: 1. Urinary tract infection/fever. ABX=vancomycin and meropenem Infectious Disease = Dr. Fuentes. Urine culture =proteus 2. Asthma. A Pulmonary consultation has been obtained with Dr. Jesús Mustafa. COVID-19 is pending 3. Hypothyroidism. Continue Levoxyl as above. 4. Down syndrome. 5. Obesity. 6. Thrombocytopenia. 7. Leukocytosis. 8. Renal failure. A Nephrology consultation has been obtained with Dr. Alexis Villagomez. 9. DNI/DNR-see polst 10. ICU status Luis Rodriguez MD November 12, 2019 17:17
[2019-11-12] MEDS: Dyna-Hex 2% Top Sol 2oz TOPIC SCH (20:02)
[2019-11-12] MEDS: DOPamine 400mg/250ml 250 ML IV SCH (20:03)
[2019-11-13] VITALS (61 sets, daily range): BP systolic 59–145; BP diastolic 17–116
[2019-11-13] MEDS: Norepinephrine 4mg/NS Premix 250 ML IV SCH ×8 (01:04→23:28)
[2019-11-13] MEDS: Hydrocortisone 100mg Inj IV SCH ×3 (05:17→21:59)
[2019-11-13 05:29] LABS: HEMATOCRIT 37.6 % (42.0-52.0); HEMOGLOBIN 12.8 G/DL (14.2-18.0); MEAN CORPUSCULAR VOLUME 102 FL (80-99); PLATELET COUNT 57 K/UL (150-450); RED CELL DISTRIBUTION WIDTH 14.2 % (11.6-14.8); WHITE BLOOD COUNT 21.6 K/UL (4.8-10.8)
[2019-11-13 06:19] LABS: ALANINE AMINOTRANSFERASE 25 U/L (12-78); ALBUMIN 1.7 G/DL (3.4-5.0); ALBUMIN/GLOBULIN RATIO 0.3 (1.0-2.7); ALKALINE PHOSPHATASE 59 U/L (46-116); ANION GAP 7 mmol/L (5-15); ASPARTATE AMINO TRANSFERASE 22 U/L (15-37); BILIRUBIN,TOTAL 0.2 MG/DL (0.2-1.0); BLOOD UREA NITROGEN 25 mg/dL (7-18); CALCIUM 7.8 MG/DL (8.5-10.1); CARBON DIOXIDE 26 MMOL/L (21-32); CHLORIDE 107 MMOL/L (98-107); CREATININE 1.8 MG/DL (0.55-1.30); GAMMA GLUTAMYL TRANSPEPTIDASE 14 U/L (5-85); PHOSPHORUS 3.2 MG/DL (2.5-4.9); POTASSIUM 4.8 MMOL/L (3.5-5.1); SODIUM 140 MMOL/L (136-145)
[2019-11-13] MEDS: LORazepam Inj 2mg/ml 1ml IV PRN ×2 (08:27→08:53)
[2019-11-13] MEDS: Pantoprazole Inj IVP SCH ×2 (08:28→20:36)
[2019-11-13] MEDS: Midodrine 10mg tab ORAL SCH ×3 (08:28→18:03)
[2019-11-13] MEDS: Docusate 100mg/10ml Liq NG SCH ×3 (08:28→18:03)
[2019-11-13] MEDS: Meropenem 1 GM in NS 55 ML IVPB SCH ×2 (08:28→20:37)
[2019-11-13] MEDS: Phenytoin 100 MG in NS 55 ML IVPB SCH ×3 (08:29→23:42)
[2019-11-13] MEDS: Enoxaparin 40mg Inj SUBQ SCH (08:56)
--- NOTE | 2019-11-13 09:31 | Diagnostic Imaging Report ---
Indication: Dyspnea Technique: One view of the chest Comparison: 04/02/2020 Findings: Bilateral infiltrates are again demonstrated. There is probably some pleural fluid bilaterally. There are fewer atelectatic bands on the left. The heart size is normal. Stable satisfactory position of nasogastric tube. Impression: Decreased left perihilar atelectasis. Unchanged bilateral infiltrates and likely bilateral pleural fluid
--- NOTE | 2019-11-13 11:04 | Nephrology Progress Note ---
Assessment/Plan Problem List: (1) Renal failure (ARF), acute on chronic (2) Dehydration (3) Severe sepsis (4) Down syndrome (5) Hypothyroidism (6) Hypotension (7) DMII (diabetes mellitus, type 2) Assessment Renal failure most likely acute on chronic Renal failure has a major component of dehydration due to hypernatremia Sepsis and leukocytosis, possible pneumonia Anemia Elevated troponin 4+ proteinuria, UTI Suspected COVID-19 infection Diabetes mellitus Obstructive sleep apnea Down syndrome Hypothyroidism DNR/DNI Plan November 12: Leukocytosis persists. Serum creatinine down to 1.8. Stable from renal standpoint of view. Continue per pulmonary. Discussed with RN. Medication reviewed. November 11: Status quo. Serum creatinine 2.1. Blood pressure remains low. Continue per consultants. Per order. November 10: Patient is now in ICU. Was transferred because of hypotension. Currently on 2 pressors. Patient DNR and DNI. Discussed with RN. Blood sugar elevated. Patient on IV hydrocortisone. Will change IV to half-normal saline. Will increase Midodrin to 10 mg 3 times a day. Continue to monitor electrolytes and renal parameters. Other measures: Synthroid IV Hydrate with D5W Monitor renal parameters Avoid nephrotoxic's Antibiotics Thyroid function tests Keep the blood pressure and blood sugar in check Serial troponin I and EKG Aspirin and nitrates Per orders Subjective ROS Limited/Unobtainable: Yes Objective Objective Last 24 Hour Vital Signs Date Time Temp Pulse Resp B/P (MAP) Pulse Ox O2 Delivery O2 Flow Rate FiO2 11/13/19 10:00 91 29 78/41 (53) 99 11/13/19 09:52 109/79 11/13/19 09:30 95 28 118/72 (87) 98 11/13/19 09:00 144/82 11/13/19 09:00 144 27 90/64 (73) 90 11/13/19 08:30 141 28 118/64 (82) 98 11/13/19 08:00 Bi-pap 11/13/19 08:00 98.2 145 26 114/65 (81) 95 11/13/19 08:00 144 11/13/19 08:00 116/62 11/13/19 07:23 143 26 96 100 11/13/19 07:23 96 Bi-Pap 11/13/19 07:00 143 31 109/79 (89) 96 11/13/19 07:00 109/79 11/13/19 06:45 145 27 115/69 (84) 84 11/13/19 06:30 132 15 129/76 (93) 100 11/13/19 06:15 132 8 125/71 (89) 100 11/13/19 06:00 132 22 127/78 (94) 100 11/13/19 06:00 127/78 11/13/19 05:45 132 15 123/79 (94) 100 11/13/19 05:30 132 0 129/77 (94) 99 11/13/19 05:18 137/81 11/13/19 05:15 132 0 132/74 (93) 99 11/13/19 05:00 133 0 137/81 (99) 97 11/13/19 05:00 137/81 11/13/19 04:45 132 0 135/82 (99) 95 11/13/19 04:30 132 6 118/92 (101) 96 11/13/19 04:15 136 32 134/76 (95) 96 11/13/19 04:00 Bi-pap 11/13/19 04:00 97.3 136 24 122/74 (90) 96 11/13/19 04:00 122/74 11/13/19 03:45 137 28 139/101 (114) 85 11/13/19 03:30 128 7 130/75 (93) 98 11/13/19 03:21 128 32 100 50 11/13/19 03:15 129 12 127/69 (88) 98 11/13/19 03:09 130 11/13/19 03:00 130 7 127/75 (92) 97 11/13/19 03:00 127/69 11/13/19 02:45 129 0 124/69 (87) 96 11/13/19 02:30 129 0 123/71 (88) 94 11/13/19 02:15 129 9 111/70 (84) 96 11/13/19 02:00 111/70 11/13/19 02:00 126 0 121/72 (88) 100 11/13/19 01:45 128 17 124/74 (91) 100 11/13/19 01:30 129 9 121/72 (88) 100 11/13/19 01:15 127 16 104/62 (76) 100 11/13/19 01:11 126 11 123/75 (91) 100 11/13/19 01:04 122 21 76/55 (62) 100 11/13/19 01:04 59/38 11/13/19 01:00 76/55 11/13/19 01:00 123 15 59/38 (45) 100 11/13/19 00:45 126 12 99/65 (76) 100 11/13/19 00:30 124 11 101/68 (79) 100 11/13/19 00:15 123 11 108/67 (81) 100 11/13/19 00:00 97.3 122 8 108/69 (82) 100 11/13/19 00:00 108/67 11/13/19 00:00 Bi-pap 11/12/19 23:45 122 8 110/69 (83) 100 11/12/19 23:30 122 9 111/68 (82) 100 11/12/19 23:21 122 11/12/19 23:15 122 9 112/69 (83) 100 11/12/19 23:02 103 32 96 50 11/12/19 23:00 121 10 112/71 (85) 100 11/12/19 23:00 112/69 11/12/19 22:45 120 10 115/71 (86) 100 11/12/19 22:30 120 11 117/72 (87) 100 11/12/19 22:15 120 9 120/73 (89) 100 11/12/19 22:00 120/73 11/12/19 22:00 119 8 123/71 (88) 100 11/12/19 21:45 119 13 124/74 (91) 100 11/12/19 21:30 120 17 125/74 (91) 100 11/12/19 21:15 120 12 122/75 (91) 100 11/12/19 21:00 122/75 11/12/19 21:00 120 10 124/75 (91) 100 11/12/19 20:45 122 18 122/76 (91) 100 11/12/19 20:30 123 1 129/78 (95) 100 11/12/19 20:15 130 19 130/77 (94) 100 11/12/19 20:03 142/84 11/12/19 20:03 142/84 11/12/19 20:00 97.5 135 0 141/84 (103) 100 11/12/19 20:00 130/77 11/12/19 20:00 Bi-pap 11/12/19 19:45 135 0 142/84 (103) 100 11/12/19 19:39 136 11/12/19 19:30 135 2 141/82 (101) 100 11/12/19 19:15 136 3 139/79 (99) 100 11/12/19 19:15 71 29 100 50 11/12/19 19:15 100 Bi-Pap 11/12/19 19:00 136 21 140/81 (100) 100 11/12/19 19:00 139/64 11/12/19 18:30 76 19 114/59 (77) 97 11/12/19 18:00 65 24 140/59 (86) 89 11/12/19 18:00 138/59 11/12/19 17:30 75 20 128/63 (84) 84 11/12/19 17:00 131/55 11/12/19 17:00 98.3 76 24 128/56 (80) 84 11/12/19 16:15 130/44 11/12/19 16:00 81 24 130/44 (72) 97 11/12/19 16:00 143/47 11/12/19 16:00 70 11/12/19 16:00 Non-Rebreather 11/12/19 15:30 81 24 140/56 (84) 94 11/12/19 15:29 78 31 94 50 11/12/19 15:00 69 24 140/50 (80) 90 11/12/19 15:00 140/50 11/12/19 14:30 70 24 142/55 (84) 92 11/12/19 14:00 72 24 144/53 (83) 92 11/12/19 14:00 144/53 11/12/19 13:30 65 19 113/57 (75) 89 11/12/19 13:24 107/81 11/12/19 13:00 60 25 104/47 (66) 89 11/12/19 12:30 61 26 104/53 (70) 94 11/12/19 12:00 62 26 105/65 (78) 94 11/12/19 12:00 Non-Rebreather 11/12/19 12:00 60 11/12/19 11:49 98 36 100 50 11/12/19 11:30 62 26 98/44 (62) 94 Intake and Output 11/12/19 11/13/19 18:59 06:59 Intake Total 2579.912 ml 1890.074 ml Balance 2579.912 ml 1890.074 ml IV Total 2579.912 ml 1890.074 ml # Voids 390 920 Laboratory Tests 11/12/19 13:15: Arterial Blood pH 7.217*L, Arterial Blood Partial Pressure CO2 62.6*H, Arterial Blood Partial Pressure O2 70.6L, Arterial Blood HCO3 24.9, Arterial Blood Oxygen Saturation 93.7L, Arterial Blood Base Excess -3.8L, Rell Test Positive 11/13/19 03:30: White Blood Count 21.6H, Red Blood Count 3.70L, Hemoglobin 12.8L, Hematocrit 37.6L, Mean Corpuscular Volume 102H, Mean Corpuscular Hemoglobin 34.4H, Mean Corpuscular Hemoglobin Concent 33.9, Red Cell Distribution Width 14.2, Platelet Count 57#L, Mean Platelet Volume 10.7H, Neutrophils (%) (Auto) , Lymphocytes (% ) (Auto) , Monocytes (%) (Auto) , Eosinophils (%) (Auto) , Basophils (%) (Auto) , Differential Total Cells Counted 100, Neutrophils % (Manual) 90H, Lymphocytes % (Manual) 4L, Monocytes % (Manual) 3, Eosinophils % (Manual) 0, Basophils % ( Manual) 0, Band Neutrophils 3, Platelet Estimate DecreasedL, Platelet Morphology Normal, Sodium Level 140, Potassium Level 4.8, Chloride Level 107, Carbon Dioxide Level 26, Anion Gap 7, Blood Urea Nitrogen 25H, Creatinine 1.8H, Estimat Glomerular Filtration Rate 45.7, Glucose Level 337H, Uric Acid 5.3, Calcium Level 7.8L, Phosphorus Level 3.2, Magnesium Level 1.8, Total Bilirubin 0.2, Gamma Glutamyl Transpeptidase 14, Aspartate Amino Transf (AST/SGOT) 22, Alanine Aminotransferase (ALT/SGPT) 25, Alkaline Phosphatase 59, C-Reactive Protein, Quantitative 7.0H, Pro-B-Type Natriuretic Peptide [id number], Total Protein 6.6, Albumin 1.7L, Globulin 4.9, Albumin/Globulin Ratio 0.3L, Random Amikacin Level [Pending] 11/13/19 07:23: Arterial Blood pH 7.194*L, Arterial Blood Partial Pressure CO2 70.9*H, Arterial Blood Partial Pressure O2 82.2, Arterial Blood HCO3 26.7H, Arterial Blood Oxygen Saturation 95.3, Arterial Blood Base Excess -2.9L, Rell Test Positive Height (Feet): 5 Height (Inches): 3.00 Weight (Pounds): 212 General Appearance: mild distress EENT: other - On BiPAP Cardiovascular: tachycardia Respiratory/Chest: decreased breath sounds Abdomen: distended Alexis Villagomez MD November 13, 2019 11:04
--- NOTE | 2019-11-13 11:49 | Pulmonolgy Critical Care Note ---
Critical Care - Asmt/Plan Problems: (1) Acute respiratory failure (2) Severe sepsis (3) Renal failure (ARF), acute on chronic (4) Seizure disorder (5) UTI (urinary tract infection) (6) COPD (chronic obstructive pulmonary disease) (7) DMII (diabetes mellitus, type 2) (8) Down syndrome (9) Hypothyroidism Respiratory: monitor respiratory rate, adjust FIO2, CXR, other - increase BIPAP setting to 25/5 Cardiac: start pressors - wbc decreasing Renal: F/U I&O Infectious Disease: check cultures, continue antibiotics, other Gastrointestinal: hold feedings Endocrine: monitor blood sugar, continue sliding scale insulin Hematologic: monitor H/H, transfuse if hgb<8.5 Neurologic: PRN Ativan, PRN Morphine, keep patient comfortable Disposition: keep in ICU Notes Reviewed: resident care aide, cardio, renal Discussed with: nurses, consultants, high risk case 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 manager - Objective Last 24 Hour Vital Signs Date Time Temp Pulse Resp B/P (MAP) Pulse Ox O2 Delivery O2 Flow Rate FiO2 11/13/19 11:23 98 19 87 100 11/13/19 11:09 96 30 98 100 11/13/19 11:00 94 27 145/52 (83) 99 11/13/19 10:00 91 29 78/41 (53) 99 11/13/19 09:52 109/79 11/13/19 09:30 95 28 118/72 (87) 98 11/13/19 09:00 144/82 11/13/19 09:00 144 27 90/64 (73) 90 11/13/19 08:30 141 28 118/64 (82) 98 11/13/19 08:00 Bi-pap 11/13/19 08:00 98.2 145 26 114/65 (81) 95 11/13/19 08:00 144 11/13/19 08:00 116/62 11/13/19 07:23 143 26 96 100 11/13/19 07:23 96 Bi-Pap 11/13/19 07:00 143 31 109/79 (89) 96 11/13/19 07:00 109/79 11/13/19 06:45 145 27 115/69 (84) 84 11/13/19 06:30 132 15 129/76 (93) 100 11/13/19 06:15 132 8 125/71 (89) 100 11/13/19 06:00 132 22 127/78 (94) 100 11/13/19 06:00 127/78 11/13/19 05:45 132 15 123/79 (94) 100 11/13/19 05:30 132 0 129/77 (94) 99 11/13/19 05:18 137/81 11/13/19 05:15 132 0 132/74 (93) 99 11/13/19 05:00 133 0 137/81 (99) 97 11/13/19 05:00 137/81 11/13/19 04:45 132 0 135/82 (99) 95 11/13/19 04:30 132 6 118/92 (101) 96 11/13/19 04:15 136 32 134/76 (95) 96 11/13/19 04:00 Bi-pap 11/13/19 04:00 97.3 136 24 122/74 (90) 96 11/13/19 04:00 122/74 11/13/19 03:45 137 28 139/101 (114) 85 11/13/19 03:30 128 7 130/75 (93) 98 11/13/19 03:21 128 32 100 50 11/13/19 03:15 129 12 127/69 (88) 98 11/13/19 03:09 130 11/13/19 03:00 130 7 127/75 (92) 97 11/13/19 03:00 127/69 11/13/19 02:45 129 0 124/69 (87) 96 11/13/19 02:30 129 0 123/71 (88) 94 11/13/19 02:15 129 9 111/70 (84) 96 11/13/19 02:00 111/70 11/13/19 02:00 126 0 121/72 (88) 100 11/13/19 01:45 128 17 124/74 (91) 100 11/13/19 01:30 129 9 121/72 (88) 100 11/13/19 01:15 127 16 104/62 (76) 100 11/13/19 01:11 126 11 123/75 (91) 100 11/13/19 01:04 122 21 76/55 (62) 100 11/13/19 01:04 59/38 11/13/19 01:00 76/55 11/13/19 01:00 123 15 59/38 (45) 100 11/13/19 00:45 126 12 99/65 (76) 100 11/13/19 00:30 124 11 101/68 (79) 100 11/13/19 00:15 123 11 108/67 (81) 100 11/13/19 00:00 97.3 122 8 108/69 (82) 100 11/13/19 00:00 108/67 11/13/19 00:00 Bi-pap 11/12/19 23:45 122 8 110/69 (83) 100 11/12/19 23:30 122 9 111/68 (82) 100 11/12/19 23:21 122 11/12/19 23:15 122 9 112/69 (83) 100 11/12/19 23:02 103 32 96 50 11/12/19 23:00 121 10 112/71 (85) 100 11/12/19 23:00 112/69 11/12/19 22:45 120 10 115/71 (86) 100 11/12/19 22:30 120 11 117/72 (87) 100 11/12/19 22:15 120 9 120/73 (89) 100 11/12/19 22:00 120/73 11/12/19 22:00 119 8 123/71 (88) 100 11/12/19 21:45 119 13 124/74 (91) 100 11/12/19 21:30 120 17 125/74 (91) 100 11/12/19 21:15 120 12 122/75 (91) 100 11/12/19 21:00 122/75 11/12/19 21:00 120 10 124/75 (91) 100 11/12/19 20:45 122 18 122/76 (91) 100 11/12/19 20:30 123 1 129/78 (95) 100 11/12/19 20:15 130 19 130/77 (94) 100 11/12/19 20:03 142/84 11/12/19 20:03 142/84 11/12/19 20:00 97.5 135 0 141/84 (103) 100 11/12/19 20:00 130/77 11/12/19 20:00 Bi-pap 11/12/19 19:45 135 0 142/84 (103) 100 11/12/19 19:39 136 11/12/19 19:30 135 2 141/82 (101) 100 11/12/19 19:15 136 3 139/79 (99) 100 11/12/19 19:15 71 29 100 50 11/12/19 19:15 100 Bi-Pap 11/12/19 19:00 136 21 140/81 (100) 100 11/12/19 19:00 139/64 11/12/19 18:30 76 19 114/59 (77) 97 11/12/19 18:00 65 24 140/59 (86) 89 11/12/19 18:00 138/59 11/12/19 17:30 75 20 128/63 (84) 84 11/12/19 17:00 131/55 11/12/19 17:00 98.3 76 24 128/56 (80) 84 11/12/19 16:15 130/44 11/12/19 16:00 81 24 130/44 (72) 97 11/12/19 16:00 143/47 11/12/19 16:00 70 11/12/19 16:00 Non-Rebreather 11/12/19 15:30 81 24 140/56 (84) 94 11/12/19 15:29 78 31 94 50 11/12/19 15:00 69 24 140/50 (80) 90 11/12/19 15:00 140/50 11/12/19 14:30 70 24 142/55 (84) 92 11/12/19 14:00 72 24 144/53 (83) 92 11/12/19 14:00 144/53 11/12/19 13:30 65 19 113/57 (75) 89 11/12/19 13:24 107/81 11/12/19 13:00 60 25 104/47 (66) 89 11/12/19 12:30 61 26 104/53 (70) 94 11/12/19 12:00 62 26 105/65 (78) 94 11/12/19 12:00 Non-Rebreather 11/12/19 12:00 60 11/12/19 11:49 98 36 100 50 Status: sedated Condition: critical HEENT: atraumatic Neck: full ROM Lungs: rales, rhonchi Heart: HR/BP stable, regular Abdomen: soft, active bowel sounds Extremities: no C/C/E Micro: Microbiology Date/Time Source Procedure Growth Status 11/10/19 20:15 Blood Blood Culture - Preliminary NO GROWTH AFTER 48 HOURS Resulted 11/10/19 20:05 Blood Blood Culture - Preliminary NO GROWTH AFTER 48 HOURS Resulted Accucheck: 188 Critical Care - Subjective ROS Limited/Unobtainable: Yes Interval Events: still on BIPAP Condition: critical FI02: 100 Sputum Amount: None I&O: Intake and Output 11/12/19 11/13/19 19:00 07:00 Intake Total 2639.744 ml 1875.158 ml Balance 2639.744 ml 1875.158 ml IV Total 2639.744 ml 1875.158 ml # Voids 370 990 CXR: unchanged bilateral infiltrate Labs: Laboratory Tests Test 11/12/19 13:15 11/13/19 03:30 11/13/19 07:23 Arterial Blood pH 7.217 (7.350-7.450) 7.194 (7.350-7.450) Arterial Blood Partial Pressure CO2 62.6 mmHg (35.0-45.0) *H 70.9 mmHg (35.0-45.0) *H Arterial Blood Partial Pressure O2 70.6 mmHg (75.0-100.0) L 82.2 mmHg (75.0-100.0) Arterial Blood HCO3 24.9 mmol/L (22.0-26.0) 26.7 mmol/L (22.0-26.0) H Arterial Blood Oxygen Saturation 93.7 % (95-100) L 95.3 % (95-100) Arterial Blood Base Excess -3.8 (-2-2) L -2.9 (-2-2) L Rell Test Positive Positive White Blood Count 21.6 K/UL (4.8-10.8) H Red Blood Count 3.70 M/UL (4.70-6.10) L Hemoglobin 12.8 G/DL (14.2-18.0) L Hematocrit 37.6 % (42.0-52.0) L Mean Corpuscular Volume 102 FL (80-99) H Mean Corpuscular Hemoglobin 34.4 PG (27.0-31.0) H Mean Corpuscular Hemoglobin Concent 33.9 G/DL (32.0-36.0) Red Cell Distribution Width 14.2 % (11.6-14.8) Platelet Count 57 K/UL (150-450) #L Mean Platelet Volume 10.7 FL (6.5-10.1) H Neutrophils (%) (Auto) % (45.0-75.0) Lymphocytes (%) (Auto) % (20.0-45.0) Monocytes (%) (Auto) % (1.0-10.0) Eosinophils (%) (Auto) % (0.0-3.0) Basophils (%) (Auto) % (0.0-2.0) Differential Total Cells Counted 100 Neutrophils % (Manual) 90 % (45-75) H Lymphocytes % (Manual) 4 % (20-45) L Monocytes % (Manual) 3 % (1-10) Eosinophils % (Manual) 0 % (0-3) Basophils % (Manual) 0 % (0-2) Band Neutrophils 3 % (0-8) Platelet Estimate Decreased L Platelet Morphology Normal Sodium Level 140 MMOL/L (136-145) Potassium Level 4.8 MMOL/L (3.5-5.1) Chloride Level 107 MMOL/L (98-107) Carbon Dioxide Level 26 MMOL/L (21-32) Anion Gap 7 mmol/L (5-15) Blood Urea Nitrogen 25 mg/dL (7-18) H Creatinine 1.8 MG/DL (0.55-1.30) H Estimat Glomerular Filtration Rate 45.7 mL/min (>60) Glucose Level 337 MG/DL (74-106) H Uric Acid 5.3 MG/DL (2.6-7.2) Calcium Level 7.8 MG/DL (8.5-10.1) L Phosphorus Level 3.2 MG/DL (2.5-4.9) Magnesium Level 1.8 MG/DL (1.8-2.4) Total Bilirubin 0.2 MG/DL (0.2-1.0) Gamma Glutamyl Transpeptidase 14 U/L (5-85) Aspartate Amino Transf (AST/SGOT) 22 U/L (15-37) Alanine Aminotransferase (ALT/SGPT) 25 U/L (12-78) Alkaline Phosphatase 59 U/L (46-116) C-Reactive Protein, Quantitative 7.0 mg/dL (0.00-0.90) H Pro-B-Type Natriuretic Peptide 78169 pg/mL (0-125) H Total Protein 6.6 G/DL (6.4-8.2) Albumin 1.7 G/DL (3.4-5.0) L Globulin 4.9 g/dL Albumin/Globulin Ratio 0.3 (1.0-2.7) L Random Amikacin Level Pending Jesús Mustafa MD November 13, 2019 11:49
[2019-11-13] MEDS: Nitroglycerin Patch 0.1mg/hr TDERMAL SCH (16:00)
[2019-11-13] MEDS: DOPamine 400mg/250ml 250 ML IV SCH ×3 (16:03→23:29)
[2019-11-13] MEDS ORDERED: Gentamicin Rx monitoring MISC PRN (16:45)
--- NOTE | 2019-11-13 16:46 | Infectious Diseases Prog Note ---
Assessment/Plan Assessment/Plan Assessment: Septic Shock- on 2 pressors UTI CONS bacteremia -likely contaminant Gram neg bacteremia -11/07 Bcx 2/4 S. auricularis, 1/ P. mirabilis (incomplete sensitivity panel only showing I Levaquin, S Bactrim and Gentamycin); 11/09 Bcx NTD -u/a wbc tntc, nit +, leuk +3; ucx >100k P, mirabilis (I levaquin; otherwise S) Probable PNA- r/o COVID19- 1st sample neg; awaiting 2nd Acute hypoxic respiratory failure- now in bipap FIo2 100% 11/12 -11/12 CXR: Decreased left perihilar atelectasis. Unchanged bilateral infiltrates and likely bilateral pleural fluid -11/11 sp cx p -11/10 CXR: Obscuration of left hemidiaphragm, may indicate developing basilar infiltrate and atelectasis Bilateral costophrenic angle blunting, small pleural effusions likely. Increased perihilar interstitial infiltrates versus edema. Borderline cardiomegaly -11/07 CXR: Low lung volumes with bronchovascular crowding. Otherwise no acute cardiopulmonary disease. SARS-COV2 PCR neg FEver; SP- Hyperleukocytosis; worsened, now in the 30s- improving Lymphopenia Thrombocytopenia, worsening, now severe; improving YOEL, improving Sacral deep tissue injury- no signs of infection Down Syndrome COPD Dm2 hypothryoidism SNF resident ([facility]) Plan: -Continue empiric IV Vancomycin #6 pending sp cx -Continue Meropenem #4 (abx d #6) given worsening HD decompensation -Gentamicin awaiting full sensitivity panel of Proteus mirabilis in blood culture -11/11 SP IV amikacin x1 -11/09 SP Zosyn #2 -11/07 SP Ceftriaxone x1 -f/u cx -Monitor CBC/CMP, temperature -COVID19 isolation and testing; 2nd sample sent -f/u Bcx x2, sp cx -once Cr improve, will get CT c/abd/p w/ given severe leukocytosis Thank you for consulting [facility]. Will continue to follow along with you. Subjective Allergies: Coded Allergies: ALLOPURINOL (Verified Allergy, Unknown, 12/22/15) Subjective afebrile on bipap, FIo2 100% wbc and cr improving on levophed at 30, dopamine at 20 repeat bcx NTD Objective Vital Signs Last 24 Hour Vital Signs Date Time Temp Pulse Resp B/P (MAP) Pulse Ox O2 Delivery O2 Flow Rate FiO2 11/13/19 16:03 108/49 11/13/19 16:03 108/49 11/13/19 16:00 90 11/13/19 16:00 Bi-pap 11/13/19 16:00 99.0 90 20 105/40 (61) 93 11/13/19 16:00 108/49 11/13/19 15:28 86 11/13/19 15:00 90 20 111/44 (66) 86 11/13/19 15:00 108/49 11/13/19 14:24 84 16 49 100 11/13/19 14:20 80/40 11/13/19 14:00 110 24 111/46 (67) 98 11/13/19 14:00 111/46 11/13/19 13:30 93 28 128/49 (75) 92 11/13/19 13:00 104/55 11/13/19 13:00 96 29 139/116 (124) 91 11/13/19 12:30 88 25 104/55 (71) 97 11/13/19 12:00 99.0 86 25 102/54 (70) 97 11/13/19 12:00 86 11/13/19 12:00 102/54 11/13/19 12:00 Bi-pap 11/13/19 11:23 98 19 87 100 11/13/19 11:09 96 30 98 100 11/13/19 11:00 94 27 145/52 (83) 99 11/13/19 10:00 91 29 78/41 (53) 99 11/13/19 09:52 109/79 11/13/19 09:30 95 28 118/72 (87) 98 11/13/19 09:00 144/82 11/13/19 09:00 144 27 90/64 (73) 90 11/13/19 08:30 141 28 118/64 (82) 98 11/13/19 08:00 Bi-pap 11/13/19 08:00 98.2 145 26 114/65 (81) 95 11/13/19 08:00 144 11/13/19 08:00 116/62 11/13/19 07:23 143 26 96 100 11/13/19 07:23 96 Bi-Pap 11/13/19 07:00 143 31 109/79 (89) 96 11/13/19 07:00 109/79 11/13/19 06:45 145 27 115/69 (84) 84 11/13/19 06:30 132 15 129/76 (93) 100 11/13/19 06:15 132 8 125/71 (89) 100 11/13/19 06:00 132 22 127/78 (94) 100 11/13/19 06:00 127/78 11/13/19 05:45 132 15 123/79 (94) 100 11/13/19 05:30 132 0 129/77 (94) 99 11/13/19 05:18 137/81 11/13/19 05:15 132 0 132/74 (93) 99 11/13/19 05:00 133 0 137/81 (99) 97 11/13/19 05:00 137/81 11/13/19 04:45 132 0 135/82 (99) 95 11/13/19 04:30 132 6 118/92 (101) 96 11/13/19 04:15 136 32 134/76 (95) 96 11/13/19 04:00 Bi-pap 11/13/19 04:00 97.3 136 24 122/74 (90) 96 11/13/19 04:00 122/74 11/13/19 03:45 137 28 139/101 (114) 85 11/13/19 03:30 128 7 130/75 (93) 98 11/13/19 03:21 128 32 100 50 11/13/19 03:15 129 12 127/69 (88) 98 11/13/19 03:09 130 11/13/19 03:00 130 7 127/75 (92) 97 11/13/19 03:00 127/69 11/13/19 02:45 129 0 124/69 (87) 96 11/13/19 02:30 129 0 123/71 (88) 94 11/13/19 02:15 129 9 111/70 (84) 96 11/13/19 02:00 111/70 11/13/19 02:00 126 0 121/72 (88) 100 11/13/19 01:45 128 17 124/74 (91) 100 11/13/19 01:30 129 9 121/72 (88) 100 11/13/19 01:15 127 16 104/62 (76) 100 11/13/19 01:11 126 11 123/75 (91) 100 11/13/19 01:04 122 21 76/55 (62) 100 11/13/19 01:04 59/38 11/13/19 01:00 76/55 11/13/19 01:00 123 15 59/38 (45) 100 11/13/19 00:45 126 12 99/65 (76) 100 11/13/19 00:30 124 11 101/68 (79) 100 11/13/19 00:15 123 11 108/67 (81) 100 11/13/19 00:00 97.3 122 8 108/69 (82) 100 11/13/19 00:00 108/67 11/13/19 00:00 Bi-pap 11/12/19 23:45 122 8 110/69 (83) 100 11/12/19 23:30 122 9 111/68 (82) 100 11/12/19 23:21 122 11/12/19 23:15 122 9 112/69 (83) 100 11/12/19 23:02 103 32 96 50 11/12/19 23:00 121 10 112/71 (85) 100 11/12/19 23:00 112/69 11/12/19 22:45 120 10 115/71 (86) 100 11/12/19 22:30 120 11 117/72 (87) 100 11/12/19 22:15 120 9 120/73 (89) 100 11/12/19 22:00 120/73 11/12/19 22:00 119 8 123/71 (88) 100 11/12/19 21:45 119 13 124/74 (91) 100 11/12/19 21:30 120 17 125/74 (91) 100 11/12/19 21:15 120 12 122/75 (91) 100 11/12/19 21:00 122/75 11/12/19 21:00 120 10 124/75 (91) 100 11/12/19 20:45 122 18 122/76 (91) 100 11/12/19 20:30 123 1 129/78 (95) 100 11/12/19 20:15 130 19 130/77 (94) 100 5/28/20 20:03 142/84 11/12/19 20:03 142/84 11/12/19 20:00 97.5 135 0 141/84 (103) 100 11/12/19 20:00 130/77 11/12/19 20:00 Bi-pap 11/12/19 19:45 135 0 142/84 (103) 100 11/12/19 19:39 136 11/12/19 19:30 135 2 141/82 (101) 100 11/12/19 19:15 136 3 139/79 (99) 100 11/12/19 19:15 71 29 100 50 11/12/19 19:15 100 Bi-Pap 11/12/19 19:00 136 21 140/81 (100) 100 11/12/19 19:00 139/64 11/12/19 18:30 76 19 114/59 (77) 97 11/12/19 18:00 65 24 140/59 (86) 89 11/12/19 18:00 138/59 11/12/19 17:30 75 20 128/63 (84) 84 11/12/19 17:00 131/55 11/12/19 17:00 98.3 76 24 128/56 (80) 84 Height (Feet): 5 Height (Inches): 3.00 Weight (Pounds): 212 Objective not examined to limit COVID19 exposure Microbiology Date/Time Source Procedure Growth Status 11/10/19 20:15 Blood Blood Culture - Preliminary NO GROWTH AFTER 48 HOURS Resulted 11/10/19 20:05 Blood Blood Culture - Preliminary NO GROWTH AFTER 48 HOURS Resulted Laboratory Tests Test 11/13/19 03:30 11/13/19 07:23 White Blood Count 21.6 K/UL (4.8-10.8) H Red Blood Count 3.70 M/UL (4.70-6.10) L Hemoglobin 12.8 G/DL (14.2-18.0) L Hematocrit 37.6 % (42.0-52.0) L Mean Corpuscular Volume 102 FL (80-99) H Mean Corpuscular Hemoglobin 34.4 PG (27.0-31.0) H Mean Corpuscular Hemoglobin Concent 33.9 G/DL (32.0-36.0) Red Cell Distribution Width 14.2 % (11.6-14.8) Platelet Count 57 K/UL (150-450) #L Mean Platelet Volume 10.7 FL (6.5-10.1) H Neutrophils (%) (Auto) % (45.0-75.0) Lymphocytes (%) (Auto) % (20.0-45.0) Monocytes (%) (Auto) % (1.0-10.0) Eosinophils (%) (Auto) % (0.0-3.0) Basophils (%) (Auto) % (0.0-2.0) Differential Total Cells Counted 100 Neutrophils % (Manual) 90 % (45-75) H Lymphocytes % (Manual) 4 % (20-45) L Monocytes % (Manual) 3 % (1-10) Eosinophils % (Manual) 0 % (0-3) Basophils % (Manual) 0 % (0-2) Band Neutrophils 3 % (0-8) Platelet Estimate Decreased L Platelet Morphology Normal Sodium Level 140 MMOL/L (136-145) Potassium Level 4.8 MMOL/L (3.5-5.1) Chloride Level 107 MMOL/L (98-107) Carbon Dioxide Level 26 MMOL/L (21-32) Anion Gap 7 mmol/L (5-15) Blood Urea Nitrogen 25 mg/dL (7-18) H Creatinine 1.8 MG/DL (0.55-1.30) H Estimat Glomerular Filtration Rate 45.7 mL/min (>60) Glucose Level 337 MG/DL (74-106) H Uric Acid 5.3 MG/DL (2.6-7.2) Calcium Level 7.8 MG/DL (8.5-10.1) L Phosphorus Level 3.2 MG/DL (2.5-4.9) Magnesium Level 1.8 MG/DL (1.8-2.4) Total Bilirubin 0.2 MG/DL (0.2-1.0) Gamma Glutamyl Transpeptidase 14 U/L (5-85) Aspartate Amino Transf (AST/SGOT) 22 U/L (15-37) Alanine Aminotransferase (ALT/SGPT) 25 U/L (12-78) Alkaline Phosphatase 59 U/L (46-116) C-Reactive Protein, Quantitative 7.0 mg/dL (0.00-0.90) H Pro-B-Type Natriuretic Peptide 58776 pg/mL (0-125) H Total Protein 6.6 G/DL (6.4-8.2) Albumin 1.7 G/DL (3.4-5.0) L Globulin 4.9 g/dL Albumin/Globulin Ratio 0.3 (1.0-2.7) L Random Amikacin Level Pending Arterial Blood pH 7.194 (7.350-7.450) Arterial Blood Partial Pressure CO2 70.9 mmHg (35.0-45.0) *H Arterial Blood Partial Pressure O2 82.2 mmHg (75.0-100.0) Arterial Blood HCO3 26.7 mmol/L (22.0-26.0) H Arterial Blood Oxygen Saturation 95.3 % (95-100) Arterial Blood Base Excess -2.9 (-2-2) L Rell Test Positive Current Medications Medications (Trade) Dose Ordered Sig/Femi Route PRN Reason Start Time Stop Time Status Last Admin Dose Admin Aspirin (ASA) 325 mg DAILY ORAL 11/11/19 09:00 12/24/19 14:44 11/13/19 08:27 Chlorhexidine Gluconate (Nilda-Hex 2%) 1 applic DAILY@2000 TOPIC 11/10/19 20:15 02/08/20 20:14 11/12/19 20:02 Docusate Sodium (Colace) 100 mg THREE TIMES A DAY NG 11/13/19 09:00 12/13/19 08:59 11/13/19 13:52 Dopamine HCl/ Dextrose 250 ml @ 0 mls/hr Q24H IV 11/10/19 20:42 02/08/20 20:41 11/13/19 16:03 Enoxaparin Sodium (Lovenox) 40 mg DAILY SUBQ 11/13/19 09:00 02/07/20 08:59 11/13/19 08:56 Hydrocortisone (Solu-CORTEF) 100 mg EVERY 8 HOURS IV 11/10/19 22:00 02/08/20 13:59 11/13/19 13:52 Levothyroxine Sodium (Synthroid) 50 mcg DAILY IV 11/11/19 09:00 12/10/19 09:29 11/13/19 08:29 Lorazepam (Ativan 2mg/ml 1ml) 1 mg Q1H PRN IV For Seizures 11/11/19 13:15 11/18/19 13:14 11/13/19 08:53 Meropenem 1 gm/ Sodium Chloride 55 ml @ 110 mls/hr EVERY 12 HOURS IVPB 11/10/19 21:00 11/15/19 20:59 11/13/19 08:28 Midodrine (Pro-Amatine) 10 mg THREE TIMES A DAY ORAL 11/11/19 13:00 02/07/20 14:44 11/13/19 13:52 Nitroglycerin (Ntg) 1 patch Q24H TDERMAL 11/11/19 16:00 12/09/19 15:59 Norepinephrine Bitartrate 250 ml @ 0 mls/hr Q24H IV 11/10/19 18:30 02/08/20 18:29 11/13/19 16:03 Pantoprazole (Protonix) 40 mg EVERY 12 HOURS IVP 11/10/19 21:00 12/09/19 14:44 11/13/19 08:28 Phenytoin 100 mg/ Sodium Chloride 57 ml @ 114 mls/hr Q7QP-PT PHENYTOIN IVPB 11/12/19 00:00 12/12/19 00:00 11/13/19 08:29 Sodium Chloride 1,000 ml @ 100 mls/hr Q10H IV 11/11/19 11:00 12/11/19 10:59 11/13/19 13:52 Vancomycin HCl (Vanco rx to dose) 1 ea DAILY PRN MISC Rx to dose 11/11/19 09:00 12/09/19 08:59 Polly Fuentes M.D. November 13, 2019 16:46
--- NOTE | 2019-11-13 18:29 | Cardiology Progress Note ---
Assessment/Plan Assessment/Plan 1. Septic shock 2. Bacteremia. 3. Hypernatremia. 4. Status post acute renal failure. 5. Urinary tract infection with proteus 6. Thrombocytopenia. 7. seizure 8. tachy 9. asystole 10. thrombocytopenia wbc improved diarrhea with rectal tube but iv pressors pressors levophed and dopamine max doses covid isolation for PUI cxr personally reviewed tele personally reviewed ekg personally reviewed id noted on abx plt lwo again nto febrile at the moment he developed asystole but recovered shortly after onset prognosis poor echo in am unable to diurese due to lwo bp prognosis poor d/w rn still critically ill and a risk of dying no cpr no intubation Subjective ROS Limited/Unobtainable: Yes Objective Last 24 Hour Vital Signs Date Time Temp Pulse Resp B/P (MAP) Pulse Ox O2 Delivery O2 Flow Rate FiO2 11/13/19 18:03 98/31 11/13/19 17:30 94 26 98/31 (53) 89 11/13/19 17:15 91 22 93/38 (56) 91 11/13/19 17:00 91 20 98/47 (64) 93 11/13/19 17:00 95/28 11/13/19 16:03 108/49 11/13/19 16:03 108/49 11/13/19 16:00 90 11/13/19 16:00 Bi-pap 11/13/19 16:00 99.0 90 20 105/40 (61) 93 11/13/19 16:00 108/49 11/13/19 15:28 86 11/13/19 15:00 90 20 111/44 (66) 86 11/13/19 15:00 108/49 11/13/19 14:24 84 16 49 100 11/13/19 14:20 80/40 11/13/19 14:00 110 24 111/46 (67) 98 11/13/19 14:00 111/46 11/13/19 13:30 93 28 128/49 (75) 92 11/13/19 13:00 104/55 11/13/19 13:00 96 29 139/116 (124) 91 11/13/19 12:30 88 25 104/55 (71) 97 11/13/19 12:00 99.0 86 25 102/54 (70) 97 11/13/19 12:00 86 11/13/19 12:00 102/54 11/13/19 12:00 Bi-pap 11/13/19 11:23 98 19 87 100 11/13/19 11:09 96 30 98 100 11/13/19 11:00 94 27 145/52 (83) 99 11/13/19 10:00 91 29 78/41 (53) 99 11/13/19 09:52 109/79 11/13/19 09:30 95 28 118/72 (87) 98 11/13/19 09:00 144/82 11/13/19 09:00 144 27 90/64 (73) 90 11/13/19 08:30 141 28 118/64 (82) 98 11/13/19 08:00 Bi-pap 11/13/19 08:00 98.2 145 26 114/65 (81) 95 11/13/19 08:00 144 11/13/19 08:00 116/62 11/13/19 07:23 143 26 96 100 11/13/19 07:23 96 Bi-Pap 11/13/19 07:00 143 31 109/79 (89) 96 11/13/19 07:00 109/79 11/13/19 06:45 145 27 115/69 (84) 84 11/13/19 06:30 132 15 129/76 (93) 100 11/13/19 06:15 132 8 125/71 (89) 100 11/13/19 06:00 132 22 127/78 (94) 100 11/13/19 06:00 127/78 11/13/19 05:45 132 15 123/79 (94) 100 11/13/19 05:30 132 0 129/77 (94) 99 11/13/19 05:18 137/81 11/13/19 05:15 132 0 132/74 (93) 99 11/13/19 05:00 133 0 137/81 (99) 97 11/13/19 05:00 137/81 11/13/19 04:45 132 0 135/82 (99) 95 11/13/19 04:30 132 6 118/92 (101) 96 11/13/19 04:15 136 32 134/76 (95) 96 11/13/19 04:00 Bi-pap 11/13/19 04:00 97.3 136 24 122/74 (90) 96 11/13/19 04:00 122/74 11/13/19 03:45 137 28 139/101 (114) 85 11/13/19 03:30 128 7 130/75 (93) 98 11/13/19 03:21 128 32 100 50 11/13/19 03:15 129 12 127/69 (88) 98 11/13/19 03:09 130 11/13/19 03:00 130 7 127/75 (92) 97 11/13/19 03:00 127/69 11/13/19 02:45 129 0 124/69 (87) 96 11/13/19 02:30 129 0 123/71 (88) 94 11/13/19 02:15 129 9 111/70 (84) 96 11/13/19 02:00 111/70 11/13/19 02:00 126 0 121/72 (88) 100 11/13/19 01:45 128 17 124/74 (91) 100 11/13/19 01:30 129 9 121/72 (88) 100 11/13/19 01:15 127 16 104/62 (76) 100 11/13/19 01:11 126 11 123/75 (91) 100 11/13/19 01:04 122 21 76/55 (62) 100 11/13/19 01:04 59/38 11/13/19 01:00 76/55 11/13/19 01:00 123 15 59/38 (45) 100 11/13/19 00:45 126 12 99/65 (76) 100 11/13/19 00:30 124 11 101/68 (79) 100 11/13/19 00:15 123 11 108/67 (81) 100 11/13/19 00:00 97.3 122 8 108/69 (82) 100 11/13/19 00:00 108/67 11/13/19 00:00 Bi-pap 11/12/19 23:45 122 8 110/69 (83) 100 11/12/19 23:30 122 9 111/68 (82) 100 11/12/19 23:21 122 11/12/19 23:15 122 9 112/69 (83) 100 11/12/19 23:02 103 32 96 50 11/12/19 23:00 121 10 112/71 (85) 100 11/12/19 23:00 112/69 11/12/19 22:45 120 10 115/71 (86) 100 11/12/19 22:30 120 11 117/72 (87) 100 11/12/19 22:15 120 9 120/73 (89) 100 11/12/19 22:00 120/73 11/12/19 22:00 119 8 123/71 (88) 100 11/12/19 21:45 119 13 124/74 (91) 100 11/12/19 21:30 120 17 125/74 (91) 100 11/12/19 21:15 120 12 122/75 (91) 100 11/12/19 21:00 122/75 11/12/19 21:00 120 10 124/75 (91) 100 11/12/19 20:45 122 18 122/76 (91) 100 11/12/19 20:30 123 1 129/78 (95) 100 11/12/19 20:15 130 19 130/77 (94) 100 11/12/19 20:03 142/84 11/12/19 20:03 142/84 11/12/19 20:00 97.5 135 0 141/84 (103) 100 11/12/19 20:00 130/77 11/12/19 20:00 Bi-pap 11/12/19 19:45 135 0 142/84 (103) 100 11/12/19 19:39 136 11/12/19 19:30 135 2 141/82 (101) 100 11/12/19 19:15 136 3 139/79 (99) 100 11/12/19 19:15 71 29 100 50 11/12/19 19:15 100 Bi-Pap 11/12/19 19:00 136 21 140/81 (100) 100 11/12/19 19:00 139/64 11/12/19 18:30 76 19 114/59 (77) 97 General Appearance: no apparent distress, patient on isolation, isolation precautions, other - on bipap Intake and Output 11/12/19 11/13/19 19:00 07:00 Intake Total 2639.744 ml 1875.158 ml Balance 2639.744 ml 1875.158 ml IV Total 2639.744 ml 1875.158 ml # Voids 370 990 Laboratory Tests Test 11/13/19 03:30 11/13/19 07:23 White Blood Count 21.6 K/UL (4.8-10.8) H Red Blood Count 3.70 M/UL (4.70-6.10) L Hemoglobin 12.8 G/DL (14.2-18.0) L Hematocrit 37.6 % (42.0-52.0) L Mean Corpuscular Volume 102 FL (80-99) H Mean Corpuscular Hemoglobin 34.4 PG (27.0-31.0) H Mean Corpuscular Hemoglobin Concent 33.9 G/DL (32.0-36.0) Red Cell Distribution Width 14.2 % (11.6-14.8) Platelet Count 57 K/UL (150-450) #L Mean Platelet Volume 10.7 FL (6.5-10.1) H Neutrophils (%) (Auto) % (45.0-75.0) Lymphocytes (%) (Auto) % (20.0-45.0) Monocytes (%) (Auto) % (1.0-10.0) Eosinophils (%) (Auto) % (0.0-3.0) Basophils (%) (Auto) % (0.0-2.0) Differential Total Cells Counted 100 Neutrophils % (Manual) 90 % (45-75) H Lymphocytes % (Manual) 4 % (20-45) L Monocytes % (Manual) 3 % (1-10) Eosinophils % (Manual) 0 % (0-3) Basophils % (Manual) 0 % (0-2) Band Neutrophils 3 % (0-8) Platelet Estimate Decreased L Platelet Morphology Normal Sodium Level 140 MMOL/L (136-145) Potassium Level 4.8 MMOL/L (3.5-5.1) Chloride Level 107 MMOL/L (98-107) Carbon Dioxide Level 26 MMOL/L (21-32) Anion Gap 7 mmol/L (5-15) Blood Urea Nitrogen 25 mg/dL (7-18) H Creatinine 1.8 MG/DL (0.55-1.30) H Estimat Glomerular Filtration Rate 45.7 mL/min (>60) Glucose Level 337 MG/DL (74-106) H Uric Acid 5.3 MG/DL (2.6-7.2) Calcium Level 7.8 MG/DL (8.5-10.1) L Phosphorus Level 3.2 MG/DL (2.5-4.9) Magnesium Level 1.8 MG/DL (1.8-2.4) Total Bilirubin 0.2 MG/DL (0.2-1.0) Gamma Glutamyl Transpeptidase 14 U/L (5-85) Aspartate Amino Transf (AST/SGOT) 22 U/L (15-37) Alanine Aminotransferase (ALT/SGPT) 25 U/L (12-78) Alkaline Phosphatase 59 U/L (46-116) C-Reactive Protein, Quantitative 7.0 mg/dL (0.00-0.90) H Pro-B-Type Natriuretic Peptide 70823 pg/mL (0-125) H Total Protein 6.6 G/DL (6.4-8.2) Albumin 1.7 G/DL (3.4-5.0) L Globulin 4.9 g/dL Albumin/Globulin Ratio 0.3 (1.0-2.7) L Random Amikacin Level Pending Arterial Blood pH 7.194 (7.350-7.450) Arterial Blood Partial Pressure CO2 70.9 mmHg (35.0-45.0) *H Arterial Blood Partial Pressure O2 82.2 mmHg (75.0-100.0) Arterial Blood HCO3 26.7 mmol/L (22.0-26.0) H Arterial Blood Oxygen Saturation 95.3 % (95-100) Arterial Blood Base Excess -2.9 (-2-2) L Rell Test Positive Microbiology Date/Time Source Procedure Growth Status 11/10/19 20:15 Blood Blood Culture - Preliminary NO GROWTH AFTER 48 HOURS Resulted 11/10/19 20:05 Blood Blood Culture - Preliminary NO GROWTH AFTER 48 HOURS Resulted Irving Hoffman MD November 13, 2019 18:29
--- NOTE | 2019-11-13 19:00 | Internal Med Progress Note ---
Subjective Physician Name Davon Falk Attending Physician Davon Falk MD Current Medications Medications (Trade) Dose Ordered Sig/Femi Route PRN Reason Start Time Stop Time Status Last Admin Dose Admin Aspirin (ASA) 325 mg DAILY ORAL 11/11/19 09:00 12/24/19 14:44 11/13/19 08:27 Chlorhexidine Gluconate (Nilda-Hex 2%) 1 applic DAILY@2000 TOPIC 11/10/19 20:15 02/08/20 20:14 11/12/19 20:02 Docusate Sodium (Colace) 100 mg THREE TIMES A DAY NG 11/13/19 09:00 12/13/19 08:59 11/13/19 18:03 Dopamine HCl/ Dextrose 250 ml @ 0 mls/hr Q24H IV 11/10/19 20:42 02/08/20 20:41 11/13/19 16:03 Enoxaparin Sodium (Lovenox) 40 mg DAILY SUBQ 11/13/19 09:00 02/07/20 08:59 11/13/19 08:56 Gentamicin Protocol (Gentamicin pharmacy to dose) 1 ea DAILY PRN MISC Per rx protocol 11/13/19 16:45 12/13/19 16:44 Gentamicin Sulfate 350 mg/ Sodium Chloride 118.75 ml @ 118.75 mls/hr Q48H IVPB 11/13/19 20:00 11/20/19 19:59 Hydrocortisone (Solu-CORTEF) 100 mg EVERY 8 HOURS IV 11/10/19 22:00 02/08/20 13:59 11/13/19 13:52 Levothyroxine Sodium (Synthroid) 50 mcg DAILY IV 11/11/19 09:00 12/10/19 09:29 11/13/19 08:29 Lorazepam (Ativan 2mg/ml 1ml) 1 mg Q1H PRN IV For Seizures 11/11/19 13:15 11/18/19 13:14 11/13/19 08:53 Meropenem 1 gm/ Sodium Chloride 55 ml @ 110 mls/hr EVERY 12 HOURS IVPB 11/10/19 21:00 11/15/19 20:59 11/13/19 08:28 Midodrine (Pro-Amatine) 10 mg THREE TIMES A DAY ORAL 11/11/19 13:00 8/23/20 14:44 11/13/19 18:03 Nitroglycerin (Ntg) 1 patch Q24H TDERMAL 11/11/19 16:00 12/09/19 15:59 Norepinephrine Bitartrate 250 ml @ 0 mls/hr Q24H IV 11/10/19 18:30 02/08/20 18:29 11/13/19 18:03 Pantoprazole (Protonix) 40 mg EVERY 12 HOURS IVP 11/10/19 21:00 12/09/19 14:44 11/13/19 08:28 Phenytoin 100 mg/ Sodium Chloride 57 ml @ 114 mls/hr [id number] PHENYTOIN IVPB 11/12/19 00:00 12/12/19 00:00 11/13/19 08:29 Sodium Chloride 1,000 ml @ 100 mls/hr Q10H IV 11/11/19 11:00 12/11/19 10:59 11/13/19 13:52 Vancomycin HCl (Vanco rx to dose) 1 ea DAILY PRN MISC Rx to dose 11/11/19 09:00 12/09/19 08:59 Allergies: Coded Allergies: ALLOPURINOL (Verified Allergy, Unknown, 12/22/15) Subjective In ICU, unresponsive, On Bipap, open eyes with deep stimulation. Objective Last Vital Signs Date Time Temp Pulse Resp B/P (MAP) Pulse Ox O2 Delivery O2 Flow Rate FiO2 11/13/19 18:03 104/25 11/13/19 18:00 93 36 97 11/13/19 16:00 Bi-pap 11/13/19 16:00 99.0 11/13/19 14:24 100 11/12/19 00:00 4.0 Laboratory Tests Test 11/13/19 03:30 11/13/19 07:23 White Blood Count 21.6 K/UL (4.8-10.8) H Red Blood Count 3.70 M/UL (4.70-6.10) L Hemoglobin 12.8 G/DL (14.2-18.0) L Hematocrit 37.6 % (42.0-52.0) L Mean Corpuscular Volume 102 FL (80-99) H Mean Corpuscular Hemoglobin 34.4 PG (27.0-31.0) H Mean Corpuscular Hemoglobin Concent 33.9 G/DL (32.0-36.0) Red Cell Distribution Width 14.2 % (11.6-14.8) Platelet Count 57 K/UL (150-450) #L Mean Platelet Volume 10.7 FL (6.5-10.1) H Neutrophils (%) (Auto) % (45.0-75.0) Lymphocytes (%) (Auto) % (20.0-45.0) Monocytes (%) (Auto) % (1.0-10.0) Eosinophils (%) (Auto) % (0.0-3.0) Basophils (%) (Auto) % (0.0-2.0) Differential Total Cells Counted 100 Neutrophils % (Manual) 90 % (45-75) H Lymphocytes % (Manual) 4 % (20-45) L Monocytes % (Manual) 3 % (1-10) Eosinophils % (Manual) 0 % (0-3) Basophils % (Manual) 0 % (0-2) Band Neutrophils 3 % (0-8) Platelet Estimate Decreased L Platelet Morphology Normal Sodium Level 140 MMOL/L (136-145) Potassium Level 4.8 MMOL/L (3.5-5.1) Chloride Level 107 MMOL/L (98-107) Carbon Dioxide Level 26 MMOL/L (21-32) Anion Gap 7 mmol/L (5-15) Blood Urea Nitrogen 25 mg/dL (7-18) H Creatinine 1.8 MG/DL (0.55-1.30) H Estimat Glomerular Filtration Rate 45.7 mL/min (>60) Glucose Level 337 MG/DL (74-106) H Uric Acid 5.3 MG/DL (2.6-7.2) Calcium Level 7.8 MG/DL (8.5-10.1) L Phosphorus Level 3.2 MG/DL (2.5-4.9) Magnesium Level 1.8 MG/DL (1.8-2.4) Total Bilirubin 0.2 MG/DL (0.2-1.0) Gamma Glutamyl Transpeptidase 14 U/L (5-85) Aspartate Amino Transf (AST/SGOT) 22 U/L (15-37) Alanine Aminotransferase (ALT/SGPT) 25 U/L (12-78) Alkaline Phosphatase 59 U/L (46-116) C-Reactive Protein, Quantitative 7.0 mg/dL (0.00-0.90) H Pro-B-Type Natriuretic Peptide 47988 pg/mL (0-125) H Total Protein 6.6 G/DL (6.4-8.2) Albumin 1.7 G/DL (3.4-5.0) L Globulin 4.9 g/dL Albumin/Globulin Ratio 0.3 (1.0-2.7) L Random Amikacin Level Pending Arterial Blood pH 7.194 (7.350-7.450) Arterial Blood Partial Pressure CO2 70.9 mmHg (35.0-45.0) *H Arterial Blood Partial Pressure O2 82.2 mmHg (75.0-100.0) Arterial Blood HCO3 26.7 mmol/L (22.0-26.0) H Arterial Blood Oxygen Saturation 95.3 % (95-100) Arterial Blood Base Excess -2.9 (-2-2) L Rell Test Positive Microbiology Date/Time Source Procedure Growth Status 11/10/19 20:15 Blood Blood Culture - Preliminary NO GROWTH AFTER 48 HOURS Resulted 11/10/19 20:05 Blood Blood Culture - Preliminary NO GROWTH AFTER 48 HOURS Resulted Intake and Output 11/12/19 11/13/19 18:59 06:59 Intake Total 2579.912 ml 1890.074 ml Balance 2579.912 ml 1890.074 ml IV Total 2579.912 ml 1890.074 ml # Voids [phone] Objective General: On BiPAP, not responsive. HEENT: NCAT, sclera anicteric, PERRL, Neck: Supple, Lungs: Decrease air at bases, no Wheeze or Rales. Heart: Regular rate and rhythm, normal S1/S2, no murmurs/gallops Abdomen: soft, nontender, nondistended. + BS, morbid obesity. : Delgado cath. Extremities: No Cyanosis , clubbing Bilateral UE's edema. Neuro: limited due to patient status, open eyes upon deep stimulation, unable to F/U with commands. Skin: warm, no rashes. Assessment/Plan Assessment/Plan ASSESSMENT: This is a 69-year-old male. 1. Urinary tract infection=proteus mirabilis 2. YOEL 3. Lymphoma 4. Thrombocytopenia. 5. Acute hypoxemic respiratory failure. 6. Asthma. 7. Hypothyroidism. 8. Obesity. 9. Down syndrome. 10. severe sepsis / Septic shock 11. Seizure disorder. TREATMENT: 1. Urinary tract infection/fever. ABX=vancomycin IV, Gentamicin IV, and Meropenem Infectious Disease = Dr. Fuentes. Urine culture =proteus 2. Asthma. A Pulmonary consultation has been obtained with Dr. Jesús Mustafa. COVID-19 test negative X 2. 3. Hypothyroidism. Continue Levoxyl as above. 4. Down syndrome. 5. Obesity. 6. Thrombocytopenia. 7. Leukocytosis. 8. Renal failure. A Nephrology consultation has been obtained with Dr. Alexis Villagomez. 9. DNI/DNR-see polst 10. ICU status 11. On BiPAP 12. Dopamine and Levophed drips Monitor labs and cultures poor prognosis. Davon Falk MD November 13, 2019 19:00
[2019-11-13] MEDS ORDERED: Gentamicin inj 350 MG in NS 110 ML IVPB SCH (20:00)
[2019-11-13] MEDS: Dyna-Hex 2% Top Sol 2oz TOPIC SCH (20:35)
[2019-11-14] VITALS (44 sets, daily range): BP systolic 47–128; BP diastolic 13–107
[2019-11-14] MEDS: DOPamine 400mg/250ml 250 ML IV SCH ×3 (04:30→11:57)
[2019-11-14] MEDS: Hydrocortisone 100mg Inj IV SCH ×2 (05:01→13:14)
[2019-11-14] MEDS: Phenytoin 100 MG in NS 55 ML IVPB SCH (07:57)
[2019-11-14] MEDS: Docusate 100mg/10ml Liq NG SCH (08:40)
[2019-11-14] MEDS: Pantoprazole Inj IVP SCH (08:40)
[2019-11-14] MEDS: Midodrine 10mg tab ORAL SCH ×2 (08:41→13:14)
[2019-11-14] MEDS: Enoxaparin 40mg Inj SUBQ SCH (08:41)
[2019-11-14] MEDS: Meropenem 1 GM in NS 55 ML IVPB SCH (08:41)
[2019-11-14 09:30] LABS: HEMATOCRIT 38.5 % (42.0-52.0); HEMOGLOBIN 12.6 G/DL (14.2-18.0); MEAN CORPUSCULAR VOLUME 107 FL (80-99); PHOSPHORUS 7.6 MG/DL (2.5-4.9); PLATELET COUNT 154 K/UL (150-450); RED BLOOD COUNT 3.61 M/UL (4.70-6.10); RED CELL DISTRIBUTION WIDTH 14.7 % (11.6-14.8)
[2019-11-14 09:44] LABS: WHITE BLOOD COUNT 29.3 K/UL (4.8-10.8)
--- NOTE | 2019-11-14 09:50 | Diagnostic Imaging Report ---
EXAM: XR Chest, 1 View CLINICAL HISTORY: DYSPNEA TECHNIQUE: Frontal view of the chest. COMPARISON: Chest x-ray 11/13/19 656 FINDINGS: Lungs: Increasing opacification bilateral lower lobes, worse on the right. Pleural space: Increasing small bilateral pleural effusions. No pneumothorax. Heart: Cardiomegaly. Mediastinum: Unremarkable. Bones/joints: Unremarkable. Tubes, lines and devices: NG tube tip in the stomach. IMPRESSION: 1. Increasing opacification bilateral lower lobes, worse on the right. 2. Increasing small bilateral pleural effusions.
[2019-11-14 10:00] LABS: ALANINE AMINOTRANSFERASE 37 U/L (12-78); ALBUMIN 1.6 G/DL (3.4-5.0); ALBUMIN/GLOBULIN RATIO 0.4 (1.0-2.7); ALKALINE PHOSPHATASE 75 U/L (46-116); ANION GAP -1 mmol/L (5-15); ASPARTATE AMINO TRANSFERASE 56 U/L (15-37); BILIRUBIN,TOTAL 0.4 MG/DL (0.2-1.0); BLOOD UREA NITROGEN 31 mg/dL (7-18); CARBON DIOXIDE 31 MMOL/L (21-32); CHLORIDE 105 MMOL/L (98-107); CREATININE 3.4 MG/DL (0.55-1.30); SODIUM 135 MMOL/L (136-145)
[2019-11-14 10:14] LABS: POTASSIUM 6.6 MMOL/L (3.5-5.1)
--- NOTE | 2019-11-14 10:26 | Pulmonolgy Critical Care Note ---
Critical Care - Asmt/Plan Problems: (1) Acute respiratory failure (2) Severe sepsis (3) Renal failure (ARF), acute on chronic (4) Seizure disorder (5) UTI (urinary tract infection) (6) COPD (chronic obstructive pulmonary disease) (7) DMII (diabetes mellitus, type 2) (8) Down syndrome (9) Hypothyroidism Respiratory: monitor respiratory rate, adjust FIO2 Renal: F/U I&O Infectious Disease: check cultures, continue antibiotics Gastrointestinal: hold feedings Endocrine: monitor blood sugar Hematologic: monitor H/H Neurologic: PRN Morphine Prophylaxis: Protonix Time Spent (Minutes): 40 Discussed with: consultants, other - Pt is moribund with MOF and desaturating on BIPAP. Pt is DNR, which is very appropriate. expected in the next few hours. Critical Care - Objective Last 24 Hour Vital Signs Date Time Temp Pulse Resp B/P (MAP) Pulse Ox O2 Delivery O2 Flow Rate FiO2 11/14/19 10:01 73 16 87 100 11/14/19 08:00 Bi-pap 11/14/19 07:57 83/14 11/14/19 07:35 88 Bi-Pap 11/14/19 07:29 74 16 88 100 11/14/19 07:00 62/20 11/14/19 07:00 65/20 11/14/19 06:45 71 25 87/64 (72) 70 11/14/19 06:30 77 22 73/56 (62) 84 11/14/19 06:17 66/15 11/14/19 06:15 77 21 62/21 (35) 11/14/19 06:00 79 23 66/15 (32) 91 11/14/19 06:00 62/50 11/14/19 05:45 79 25 49/28 (35) 91 11/14/19 05:30 79 22 67/42 (50) 96 11/14/19 05:17 80 11 75/55 (62) 99 11/14/19 05:15 79 14 78/20 (39) 82 11/14/19 05:00 65/44 11/14/19 05:00 65/32 11/14/19 05:00 79 10 65/32 (43) 89 11/14/19 04:45 75 25 128/107 (114) 89 11/14/19 04:30 65/32 11/14/19 04:30 65/45 11/14/19 04:30 65 15 126/82 (97) 84 11/14/19 04:15 73 7 60/44 (49) 82 11/14/19 04:00 Bi-pap 11/14/19 04:00 98.4 78 8 85/61 (69) 84 11/14/19 04:00 60/44 11/14/19 04:00 60/44 11/14/19 04:00 73 11/14/19 03:45 88 16 96 100 11/14/19 03:45 79 11 79/35 (50) 81 11/14/19 03:30 80 7 53/20 (31) 81 11/14/19 03:15 80 6 69/17 (34) 85 11/14/19 03:00 73/40 11/14/19 03:00 73/40 11/14/19 03:00 81 6 73/40 (51) 81 11/14/19 02:45 80 9 64/13 (30) 84 11/14/19 02:30 81 8 80/39 (53) 84 11/14/19 02:15 81 6 75/26 (42) 79 11/14/19 02:00 50/16 11/14/19 02:00 50/16 11/14/19 02:00 75 7 50/16 (27) 74 11/14/19 01:52 47/21 11/14/19 01:45 80 13 47/26 (33) 76 11/14/19 01:45 80 13 47/26 (33) 76 11/14/19 01:45 80 13 47/26 (33) 76 11/14/19 01:30 83 9 60/22 (35) 85 11/14/19 01:30 83 9 60/22 (35) 85 11/14/19 01:30 83 9 60/22 (35) 85 11/14/19 01:15 84 8 64/45 (51) 88 11/14/19 01:15 84 8 64/45 (51) 88 11/14/19 01:15 84 8 64/45 (51) 88 11/14/19 01:00 84 7 71/42 (52) 87 11/14/19 01:00 64/45 11/14/19 01:00 84 7 71/42 (52) 87 11/14/19 01:00 84 7 71/42 (52) 87 11/14/19 00:45 85 8 80/43 (55) 88 11/14/19 00:45 85 8 80/43 (55) 88 11/14/19 00:45 85 8 80/43 (55) 88 11/14/19 00:37 84 5 75/36 (49) 89 11/14/19 00:37 84 5 75/36 (49) 89 11/14/19 00:30 84 8 71/30 (44) 83 11/14/19 00:30 84 8 71/30 (44) 83 11/14/19 00:30 84 8 71/30 (44) 83 11/14/19 00:15 84 16 78/27 (44) 83 11/14/19 00:15 84 16 78/27 (44) 83 11/14/19 00:15 84 16 78/27 (44) 83 11/14/19 00:13 84 9 76/28 (44) 84 11/14/19 00:13 84 9 76/28 (44) 84 11/14/19 00:00 Bi-pap 11/14/19 00:00 85 9 75/21 (39) 85 11/14/19 00:00 85 9 75/21 (39) 85 11/14/19 00:00 85 11/14/19 00:00 76/28 11/14/19 00:00 98.8 85 9 75/21 (39) 85 11/13/19 23:45 83 12 71/26 (41) 78 11/13/19 23:30 82 18 70/41 (51) 75 11/13/19 23:29 58/21 11/13/19 23:28 58/21 11/13/19 23:01 93 16 95 100 11/13/19 23:00 46/17 11/13/19 23:00 86 8 68/41 (50) 88 11/13/19 22:45 87 17 74/32 (46) 90 11/13/19 22:30 88 12 83/17 (39) 97 11/13/19 22:15 88 14 87/20 (42) 99 11/13/19 22:01 83/64 11/13/19 22:00 88 18 92/25 (47) 95 11/13/19 22:00 92/28 11/13/19 21:30 89 12 86/28 (47) 96 11/13/19 21:18 65/30 11/13/19 21:00 89 23 87/37 (54) 98 11/13/19 21:00 85/42 11/13/19 20:50 66/33 11/13/19 20:30 75 22 61/31 (41) 87 11/13/19 20:00 Bi-pap 11/13/19 20:00 95/28 11/13/19 20:00 84 11/13/19 20:00 98.5 92 22 95/25 (48) 100 11/13/19 19:30 92 20 97/18 (44) 100 11/13/19 19:12 93 16 97 100 11/13/19 19:12 97 Bi-Pap 11/13/19 19:00 92 33 91/23 (45) 95 11/13/19 19:00 91/52 11/13/19 18:03 104/25 11/13/19 18:03 98/31 11/13/19 18:00 93 36 104/25 (51) 97 11/13/19 17:30 94 26 98/31 (53) 89 11/13/19 17:15 91 22 93/38 (56) 91 11/13/19 17:00 91 20 98/47 (64) 93 11/13/19 17:00 95/28 11/13/19 16:03 108/49 11/13/19 16:03 108/49 11/13/19 16:00 90 11/13/19 16:00 Bi-pap 11/13/19 16:00 99.0 90 20 105/40 (61) 93 11/13/19 16:00 108/49 11/13/19 15:28 86 11/13/19 15:00 90 20 111/44 (66) 86 11/13/19 15:00 108/49 11/13/19 14:24 84 16 49 100 11/13/19 14:20 80/40 11/13/19 14:00 110 24 111/46 (67) 98 11/13/19 14:00 111/46 11/13/19 13:30 93 28 128/49 (75) 92 11/13/19 13:00 104/55 11/13/19 13:00 96 29 139/116 (124) 91 11/13/19 12:30 88 25 104/55 (71) 97 11/13/19 12:00 99.0 86 25 102/54 (70) 97 11/13/19 12:00 86 11/13/19 12:00 102/54 11/13/19 12:00 Bi-pap 11/13/19 11:23 98 19 87 100 11/13/19 11:09 96 30 98 100 11/13/19 11:00 94 27 145/52 (83) 99 Status: obtunded Condition: grave HEENT: atraumatic Heart: HR/BP stable Abdomen: soft Extremities: no C/C/E Micro: Microbiology Date/Time Source Procedure Growth Status 11/13/19 03:30 Sputum Gram Stain - Final Resulted 11/13/19 03:30 Sputum Sputum Culture - Preliminary NORMAL UPPER RESPIRATORY SARA AT 24 ... Resulted Accucheck: 188 Critical Care - Subjective ROS Limited/Unobtainable: Yes Condition: critical FI02: 100 Sputum Amount: None I&O: Intake and Output 11/13/19 11/14/19 19:00 07:00 Intake Total 2507.059 ml 2898.684 ml Balance 2507.059 ml 2898.684 ml Free Water 120 ml IV Total 2387.059 ml 2898.684 ml # Voids 455 195 Labs: Laboratory Tests Test 11/14/19 07:51 11/14/19 08:34 11/14/19 09:05 Arterial Blood pH 6.592 (7.350-7.450) 6.711 (7.350-7.450) Arterial Blood Partial Pressure CO2 mmHg (35.0-45.0) 186.0 mmHg (35.0-45.0) *H Arterial Blood Partial Pressure O2 88.0 mmHg (75.0-100.0) 102.7 mmHg (75.0-100.0) H Arterial Blood HCO3 mmol/L (22.0-26.0) 23.0 mmol/L (22.0-26.0) Arterial Blood Oxygen Saturation 92.3 % (95-100) L 95.5 % (95-100) Arterial Blood Base Excess 0 (-2-2) -16.3 (-2-2) *L Rell Test Pending Positive White Blood Count 29.3 K/UL (4.8-10.8) *H Red Blood Count 3.61 M/UL (4.70-6.10) L Hemoglobin 12.6 G/DL (14.2-18.0) L Hematocrit 38.5 % (42.0-52.0) L Mean Corpuscular Volume 107 FL (80-99) H Mean Corpuscular Hemoglobin 35.0 PG (27.0-31.0) H Mean Corpuscular Hemoglobin Concent 32.8 G/DL (32.0-36.0) Red Cell Distribution Width 14.7 % (11.6-14.8) Platelet Count 154 K/UL (150-450) # Mean Platelet Volume 9.0 FL (6.5-10.1) Neutrophils (%) (Auto) % (45.0-75.0) Lymphocytes (%) (Auto) % (20.0-45.0) Monocytes (%) (Auto) % (1.0-10.0) Eosinophils (%) (Auto) % (0.0-3.0) Basophils (%) (Auto) % (0.0-2.0) Neutrophils % (Manual) Pending Lymphocytes % (Manual) Pending Platelet Estimate Pending Platelet Morphology Pending Sodium Level 135 MMOL/L (136-145) L Potassium Level 6.6 MMOL/L (3.5-5.1) *H Chloride Level 105 MMOL/L (98-107) Carbon Dioxide Level 31 MMOL/L (21-32) Anion Gap -1 mmol/L (5-15) L Blood Urea Nitrogen 31 mg/dL (7-18) H Creatinine 3.4 MG/DL (0.55-1.30) #H Estimat Glomerular Filtration Rate 21.9 mL/min (>60) Glucose Level 320 MG/DL (74-106) H Calcium Level 7.0 MG/DL (8.5-10.1) L Phosphorus Level 7.6 MG/DL (2.5-4.9) H Magnesium Level 2.0 MG/DL (1.8-2.4) Total Bilirubin 0.4 MG/DL (0.2-1.0) Aspartate Amino Transf (AST/SGOT) 56 U/L (15-37) H Alanine Aminotransferase (ALT/SGPT) 37 U/L (12-78) Alkaline Phosphatase 75 U/L (46-116) Total Protein 5.7 G/DL (6.4-8.2) L Albumin 1.6 G/DL (3.4-5.0) L Globulin 4.1 g/dL Albumin/Globulin Ratio 0.4 (1.0-2.7) L Random Gentamicin Level Pending Random Vancomycin Level 11.9 ug/mL Jesús Mustafa MD November 14, 2019 10:26
[2019-11-14] MEDS ORDERED: Sodium Polystyrene Sulfonate 15gm Powder ORAL SCH (10:30)
[2019-11-14] MEDS ORDERED: Sodium Bicarbonate 50ml Carp IV SCH ×2 (11:00→14:00)
--- NOTE | 2019-11-14 11:22 | Nephrology Progress Note ---
Assessment/Plan Problem List: (1) Renal failure (ARF), acute on chronic (2) Dehydration (3) Severe sepsis (4) Down syndrome (5) Hypothyroidism (6) Hypotension (7) DMII (diabetes mellitus, type 2) Assessment Renal failure most likely acute on chronic Renal failure has a major component of dehydration due to hypernatremia Sepsis and leukocytosis, possible pneumonia Anemia Elevated troponin 4+ proteinuria, UTI Suspected COVID-19 infection Diabetes mellitus Obstructive sleep apnea Down syndrome Hypothyroidism DNR/DNI Plan November 13: Patient is severely acidotic. Hyperkalemic. Hypotensive despite of pressors. Discussed with RN Arun. Patient is DNR. Doing poorly. Appears preterminal. Will start sodium bicarb IV every 8 hours. November 12: Leukocytosis persists. Serum creatinine down to 1.8. Stable from renal standpoint of view. Continue per pulmonary. Discussed with RN. Medication reviewed. November 11: Status quo. Serum creatinine 2.1. Blood pressure remains low. Continue per consultants. Per order. November 10: Patient is now in ICU. Was transferred because of hypotension. Currently on 2 pressors. Patient DNR and DNI. Discussed with RN. Blood sugar elevated. Patient on IV hydrocortisone. Will change IV to half-normal saline. Will increase Midodrin to 10 mg 3 times a day. Continue to monitor electrolytes and renal parameters. Other measures: Synthroid IV Hydrate with D5W Monitor renal parameters Avoid nephrotoxic's Antibiotics Thyroid function tests Keep the blood pressure and blood sugar in check Serial troponin I and EKG Aspirin and nitrates Per orders Subjective ROS Limited/Unobtainable: Yes Objective Objective Last 24 Hour Vital Signs Date Time Temp Pulse Resp B/P (MAP) Pulse Ox O2 Delivery O2 Flow Rate FiO2 11/14/19 10:01 73 16 87 100 11/14/19 10:00 69 13 112/40 (64) 11/14/19 09:30 73 19 70/19 (36) 83 11/14/19 09:00 75 24 75/60 (65) 72 11/14/19 08:30 74 1 52/21 (31) 79 11/14/19 08:00 Bi-pap 11/14/19 08:00 97.3 77 17 83/65 (71) 76 11/14/19 07:57 83/14 11/14/19 07:35 88 Bi-Pap 11/14/19 07:30 73 25 78/35 (49) 11/14/19 07:29 74 16 88 100 11/14/19 07:00 62/20 11/14/19 07:00 65/20 11/14/19 07:00 65 26 60/21 (34) 72 11/14/19 06:45 71 25 87/64 (72) 70 11/14/19 06:30 77 22 73/56 (62) 84 11/14/19 06:17 66/15 11/14/19 06:15 77 21 62/21 (35) 11/14/19 06:00 79 23 66/15 (32) 91 11/14/19 06:00 62/50 11/14/19 05:45 79 25 49/28 (35) 91 11/14/19 05:30 79 22 67/42 (50) 96 11/14/19 05:17 80 11 75/55 (62) 99 11/14/19 05:15 79 14 78/20 (39) 82 11/14/19 05:00 65/44 11/14/19 05:00 65/32 11/14/19 05:00 79 10 65/32 (43) 89 11/14/19 04:45 75 25 128/107 (114) 89 11/14/19 04:30 65/32 11/14/19 04:30 65/45 11/14/19 04:30 65 15 126/82 (97) 84 11/14/19 04:15 73 7 60/44 (49) 82 11/14/19 04:00 Bi-pap 11/14/19 04:00 98.4 78 8 85/61 (69) 84 11/14/19 04:00 60/44 11/14/19 04:00 60/44 11/14/19 04:00 73 11/14/19 03:45 88 16 96 100 11/14/19 03:45 79 11 79/35 (50) 81 11/14/19 03:30 80 7 53/20 (31) 81 11/14/19 03:15 80 6 69/17 (34) 85 11/14/19 03:00 73/40 11/14/19 03:00 73/40 11/14/19 03:00 81 6 73/40 (51) 81 11/14/19 02:45 80 9 64/13 (30) 84 11/14/19 02:30 81 8 80/39 (53) 84 11/14/19 02:15 81 6 75/26 (42) 79 11/14/19 02:00 50/16 11/14/19 02:00 50/16 11/14/19 02:00 75 7 50/16 (27) 74 11/14/19 01:52 47/21 11/14/19 01:45 80 13 47/26 (33) 76 11/14/19 01:45 80 13 47/26 (33) 76 11/14/19 01:45 80 13 47/26 (33) 76 11/14/19 01:30 83 9 60/22 (35) 85 11/14/19 01:30 83 9 60/22 (35) 85 11/14/19 01:30 83 9 60/22 (35) 85 11/14/19 01:15 84 8 64/45 (51) 88 11/14/19 01:15 84 8 64/45 (51) 88 11/14/19 01:15 84 8 64/45 (51) 88 11/14/19 01:00 84 7 71/42 (52) 87 11/14/19 01:00 64/45 11/14/19 01:00 84 7 71/42 (52) 87 11/14/19 01:00 84 7 71/42 (52) 87 11/14/19 00:45 85 8 80/43 (55) 88 11/14/19 00:45 85 8 80/43 (55) 88 11/14/19 00:45 85 8 80/43 (55) 88 11/14/19 00:37 84 5 75/36 (49) 89 11/14/19 00:37 84 5 75/36 (49) 89 11/14/19 00:30 84 8 71/30 (44) 83 11/14/19 00:30 84 8 71/30 (44) 83 11/14/19 00:30 84 8 71/30 (44) 83 11/14/19 00:15 84 16 78/27 (44) 83 11/14/19 00:15 84 16 78/27 (44) 83 11/14/19 00:15 84 16 78/27 (44) 83 11/14/19 00:13 84 9 76/28 (44) 84 11/14/19 00:13 84 9 76/28 (44) 84 11/14/19 00:00 Bi-pap 11/14/19 00:00 85 9 75/21 (39) 85 11/14/19 00:00 85 9 75/21 (39) 85 11/14/19 00:00 85 11/14/19 00:00 76/28 11/14/19 00:00 98.8 85 9 75/21 (39) 85 11/13/19 23:45 83 12 71/26 (41) 78 11/13/19 23:30 82 18 70/41 (51) 75 11/13/19 23:29 58/21 11/13/19 23:28 58/21 11/13/19 23:01 93 16 95 100 11/13/19 23:00 46/17 11/13/19 23:00 86 8 68/41 (50) 88 11/13/19 22:45 87 17 74/32 (46) 90 11/13/19 22:30 88 12 83/17 (39) 97 11/13/19 22:15 88 14 87/20 (42) 99 11/13/19 22:01 83/64 11/13/19 22:00 88 18 92/25 (47) 95 11/13/19 22:00 92/28 11/13/19 21:30 89 12 86/28 (47) 96 11/13/19 21:18 65/30 11/13/19 21:00 89 23 87/37 (54) 98 11/13/19 21:00 85/42 11/13/19 20:50 66/33 11/13/19 20:30 75 22 61/31 (41) 87 11/13/19 20:00 Bi-pap 11/13/19 20:00 95/28 11/13/19 20:00 84 11/13/19 20:00 98.5 92 22 95/25 (48) 100 11/13/19 19:30 92 20 97/18 (44) 100 11/13/19 19:12 93 16 97 100 11/13/19 19:12 97 Bi-Pap 11/13/19 19:00 92 33 91/23 (45) 95 11/13/19 19:00 91/52 11/13/19 18:03 104/25 11/13/19 18:03 98/31 11/13/19 18:00 93 36 104/25 (51) 97 11/13/19 17:30 94 26 98/31 (53) 89 11/13/19 17:15 91 22 93/38 (56) 91 11/13/19 17:00 91 20 98/47 (64) 93 11/13/19 17:00 95/28 11/13/19 16:03 108/49 11/13/19 16:03 108/49 11/13/19 16:00 90 11/13/19 16:00 Bi-pap 11/13/19 16:00 99.0 90 20 105/40 (61) 93 11/13/19 16:00 108/49 11/13/19 15:28 86 11/13/19 15:00 90 20 111/44 (66) 86 11/13/19 15:00 108/49 11/13/19 14:24 84 16 49 100 11/13/19 14:20 80/40 11/13/19 14:00 110 24 111/46 (67) 98 11/13/19 14:00 111/46 11/13/19 13:30 93 28 128/49 (75) 92 11/13/19 13:00 104/55 11/13/19 13:00 96 29 139/116 (124) 91 11/13/19 12:30 88 25 104/55 (71) 97 11/13/19 12:00 99.0 86 25 102/54 (70) 97 11/13/19 12:00 86 11/13/19 12:00 102/54 11/13/19 12:00 Bi-pap 11/13/19 11:23 98 19 87 100 Intake and Output 11/13/19 11/14/19 19:00 07:00 Intake Total 2507.059 ml 2898.684 ml Balance 2507.059 ml 2898.684 ml Free Water 120 ml IV Total 2387.059 ml 2898.684 ml # Voids 455 195 Laboratory Tests 11/14/19 07:51: Arterial Blood pH 6.592*L, Arterial Blood Partial Pressure CO2 , Arterial Blood Partial Pressure O2 88.0, Arterial Blood HCO3 , Arterial Blood Oxygen Saturation 92.3L, Arterial Blood Base Excess 0, Rell Test [Pending] 11/14/19 08:34: Arterial Blood pH 6.711*L, Arterial Blood Partial Pressure CO2 186.0*H, Arterial Blood Partial Pressure O2 102.7H, Arterial Blood HCO3 23.0, Arterial Blood Oxygen Saturation 95.5, Arterial Blood Base Excess -16.3*L, Rell Test Positive 11/14/19 09:05: White Blood Count 29.3*H, Red Blood Count 3.61L, Hemoglobin 12.6L, Hematocrit 38.5L, Mean Corpuscular Volume 107H, Mean Corpuscular Hemoglobin 35.0H, Mean Corpuscular Hemoglobin Concent 32.8, Red Cell Distribution Width 14.7, Platelet Count 154#, Mean Platelet Volume 9.0, Neutrophils (%) (Auto) , Lymphocytes (%) ( Auto) , Monocytes (%) (Auto) , Eosinophils (%) (Auto) , Basophils (%) (Auto) , Neutrophils % (Manual) [Pending], Lymphocytes % (Manual) [Pending], Platelet Estimate [Pending], Platelet Morphology [Pending], Sodium Level 135L, Potassium Level 6.6*H, Chloride Level 105, Carbon Dioxide Level 31, Anion Gap -1L, Blood Urea Nitrogen 31H, Creatinine 3.4#H, Estimat Glomerular Filtration Rate 21.9, Glucose Level 320H, Calcium Level 7.0L, Phosphorus Level 7.6H, Magnesium Level 2.0, Total Bilirubin 0.4, Aspartate Amino Transf (AST/SGOT) 56H, Alanine Aminotransferase (ALT/SGPT) 37, Alkaline Phosphatase 75, Total Protein 5.7L, Albumin 1.6L, Globulin 4.1, Albumin/Globulin Ratio 0.4L, Random Gentamicin Level [Pending], Random Vancomycin Level 11.9 Height (Feet): 5 Height (Inches): 3.00 Weight (Pounds): 212 General Appearance: moderate distress, other - Toxic appearance EENT: other - On BiPAP Respiratory/Chest: rhonchi - bilaterally Abdomen: distended Alexis Villagomez MD November 14, 2019 11:22
[2019-11-14] MEDS ORDERED: D5NS 1,000 ML IV SCH (11:30)
[2019-11-14] MEDS ORDERED: Vancomycin 1.5gm/NS Premix IVPB ONE (12:00)
--- NOTE | 2019-11-14 12:54 | Internal Med Progress Note ---
Subjective Date of Service: November 14, 2019 Physician Name Luis Rodriguez Attending Physician Davon Falk MD Current Medications Medications (Trade) Dose Ordered Sig/Femi Route PRN Reason Start Time Stop Time Status Last Admin Dose Admin Aspirin (ASA) 325 mg DAILY ORAL 11/11/19 09:00 12/24/19 14:44 11/13/19 08:27 Chlorhexidine Gluconate (Nilda-Hex 2%) 1 applic DAILY@2000 TOPIC 11/10/19 20:15 02/08/20 20:14 11/13/19 20:35 Dextrose/Sodium Chloride 1,000 ml @ 75 mls/hr [id number] IV 11/14/19 11:30 12/14/19 11:29 11/14/19 11:40 Dopamine HCl/ Dextrose 250 ml @ 0 mls/hr Q24H IV 11/10/19 20:42 02/08/20 20:41 11/14/19 11:57 Enoxaparin Sodium (Lovenox) 30 mg DAILY SUBQ 11/15/19 09:00 02/13/20 08:59 Gentamicin Protocol (Gentamicin pharmacy to dose) 1 ea DAILY PRN MISC Per rx protocol 11/13/19 16:45 12/13/19 16:44 Hydrocortisone (Solu-CORTEF) 100 mg EVERY 8 HOURS IV 11/10/19 22:00 02/08/20 13:59 11/14/19 05:01 Levothyroxine Sodium (Synthroid) 50 mcg DAILY IV 11/11/19 09:00 12/10/19 09:29 11/14/19 08:41 Lorazepam (Ativan 2mg/ml 1ml) 1 mg Q1H PRN IV For Seizures 11/11/19 13:15 11/18/19 13:14 11/13/19 08:53 Meropenem 1 gm/ Sodium Chloride 55 ml @ 110 mls/hr EVERY 12 HOURS IVPB 11/10/19 21:00 11/15/19 20:59 11/14/19 08:41 Midodrine (Pro-Amatine) 10 mg THREE TIMES A DAY ORAL 11/11/19 13:00 02/07/20 14:44 11/14/19 08:41 Nitroglycerin (Ntg) 1 patch Q24H TDERMAL 11/11/19 16:00 12/09/19 15:59 Norepinephrine Bitartrate 8 mg/ Dextrose 508 ml @ 0 mls/hr Q24H IV 11/14/19 00:00 12/14/19 00:00 11/14/19 11:57 Pantoprazole (Protonix) 40 mg EVERY 12 HOURS IVP 11/10/19 21:00 12/09/19 14:44 11/14/19 08:40 Phenytoin 100 mg/ Sodium Chloride 57 ml @ 114 mls/hr [id number] PHENYTOIN IVPB 11/12/19 00:00 12/12/19 00:00 11/13/19 08:29 Sodium Bicarbonate (Sodium Bicarbonate) 100 ml Q8HR IV 11/14/19 14:00 12/14/19 13:59 Vancomycin HCl (Vanco rx to dose) 1 ea DAILY PRN MISC Rx to dose 11/11/19 09:00 12/09/19 08:59 Vancomycin/Sodium Chloride 275 ml @ 137.5 mls/ hr ONCE ONCE IVPB 11/14/19 12:00 11/14/19 13:59 11/14/19 11:11 Allergies: Coded Allergies: ALLOPURINOL (Verified Allergy, Unknown, 12/22/15) ROS Limited/Unobtainable: Yes Subjective 69YO M with Down's syndrome admitted with fever. Now UTI and sepsis. Cover for Int Med-Dr Falk. ICU. On BIPAP. On max levophed and dopamine Objective Last Vital Signs Date Time Temp Pulse Resp B/P (MAP) Pulse Ox O2 Delivery O2 Flow Rate FiO2 11/14/19 11:57 69/44 11/14/19 11:19 64 19 87 100 11/14/19 08:00 Bi-pap 11/14/19 08:00 97.3 11/12/19 00:00 4.0 Laboratory Tests Test 11/14/19 07:51 11/14/19 08:34 11/14/19 09:05 Arterial Blood pH 6.592 (7.350-7.450) 6.711 (7.350-7.450) Arterial Blood Partial Pressure CO2 mmHg (35.0-45.0) 186.0 mmHg (35.0-45.0) *H Arterial Blood Partial Pressure O2 88.0 mmHg (75.0-100.0) 102.7 mmHg (75.0-100.0) H Arterial Blood HCO3 mmol/L (22.0-26.0) 23.0 mmol/L (22.0-26.0) Arterial Blood Oxygen Saturation 92.3 % (95-100) L 95.5 % (95-100) Arterial Blood Base Excess 0 (-2-2) -16.3 (-2-2) *L Rell Test Pending Positive White Blood Count 29.3 K/UL (4.8-10.8) *H Red Blood Count 3.61 M/UL (4.70-6.10) L Hemoglobin 12.6 G/DL (14.2-18.0) L Hematocrit 38.5 % (42.0-52.0) L Mean Corpuscular Volume 107 FL (80-99) H Mean Corpuscular Hemoglobin 35.0 PG (27.0-31.0) H Mean Corpuscular Hemoglobin Concent 32.8 G/DL (32.0-36.0) Red Cell Distribution Width 14.7 % (11.6-14.8) Platelet Count 154 K/UL (150-450) # Mean Platelet Volume 9.0 FL (6.5-10.1) Neutrophils (%) (Auto) % (45.0-75.0) Lymphocytes (%) (Auto) % (20.0-45.0) Monocytes (%) (Auto) % (1.0-10.0) Eosinophils (%) (Auto) % (0.0-3.0) Basophils (%) (Auto) % (0.0-2.0) Differential Total Cells Counted 100 Neutrophils % (Manual) 77 % (45-75) H Lymphocytes % (Manual) 3 % (20-45) L Monocytes % (Manual) 9 % (1-10) Eosinophils % (Manual) 0 % (0-3) Basophils % (Manual) 0 % (0-2) Metamyelocytes % 1 % (0-0) H Myelocytes % 2 % (0-0) H Band Neutrophils 8 % (0-8) Nucleated Red Blood Cells 2 /100 WBC Platelet Estimate Adequate Platelet Morphology Normal Polychromasia 1+ Anisocytosis 1+ Macrocytosis 1+ Sodium Level 135 MMOL/L (136-145) L Potassium Level 6.6 MMOL/L (3.5-5.1) *H Chloride Level 105 MMOL/L (98-107) Carbon Dioxide Level 31 MMOL/L (21-32) Anion Gap -1 mmol/L (5-15) L Blood Urea Nitrogen 31 mg/dL (7-18) H Creatinine 3.4 MG/DL (0.55-1.30) #H Estimat Glomerular Filtration Rate 21.9 mL/min (>60) Glucose Level 320 MG/DL (74-106) H Calcium Level 7.0 MG/DL (8.5-10.1) L Phosphorus Level 7.6 MG/DL (2.5-4.9) H Magnesium Level 2.0 MG/DL (1.8-2.4) Total Bilirubin 0.4 MG/DL (0.2-1.0) Aspartate Amino Transf (AST/SGOT) 56 U/L (15-37) H Alanine Aminotransferase (ALT/SGPT) 37 U/L (12-78) Alkaline Phosphatase 75 U/L (46-116) Total Protein 5.7 G/DL (6.4-8.2) L Albumin 1.6 G/DL (3.4-5.0) L Globulin 4.1 g/dL Albumin/Globulin Ratio 0.4 (1.0-2.7) L Random Gentamicin Level 7.9 ug/mL Random Vancomycin Level 11.9 ug/mL Microbiology Date/Time Source Procedure Growth Status 11/13/19 03:30 Sputum Gram Stain - Final Resulted 11/13/19 03:30 Sputum Sputum Culture - Preliminary NORMAL UPPER RESPIRATORY SARA AT 24 ... Resulted Intake and Output 11/13/19 11/14/19 19:00 07:00 Intake Total 2507.059 ml 2898.684 ml Balance 2507.059 ml 2898.684 ml Free Water 120 ml IV Total 2387.059 ml 2898.684 ml # Voids [id number] 195 Objective PHYSICAL EXAMINATION: GENERAL: Patient is a well-developed, well-nourished obese male, in no apparent distress. HEENT: Eyes, pupils are equal and responsive to light and accommodation. Extraocular movements are intact. NECK: Supple without lymphadenopathy. CHEST: BIPAP; Lungs with bilateral wheezes and crackles CARDIOVASCULAR: Regular rhythm and rate. S1, S2 are normal without murmurs, rubs, or gallops. ABDOMEN: Soft, nontender, nondistended. Positive bowel sounds. No evidence of hepatosplenomegaly. Currently, no rebound or guarding noted. EXTREMITIES: Negative for clubbing, cyanosis, or edema. RECTAL/GENITAL: Not performed. NEUROLOGIC: Cranial nerves II through XII are grossly intact without focal deficits. Motor strength is 5/5 bilaterally. Deep tendon reflexes are 2+ plantar. Assessment/Plan Assessment/Plan ASSESSMENT: This is a 69-year-old male. 1. Urinary tract infection=proteus mirabilis 2. Fever. 3. Leukocytosis. 4. Thrombocytopenia. 5. Renal failure. 6. Asthma. 7. Hypothyroidism. 8. Obesity. 9. Down syndrome. 10. severe sepsis=Staph auricularis and proteus mirabilis 11. Hypotension TREATMENT: 1. Urinary tract infection/fever. ABX=vancomycin, gentamicin and meropenem Infectious Disease = Dr. Fuentes. Urine culture =proteus 2. Asthma. A Pulmonary consultation has been obtained with Dr. Jesús Mustafa. COVID-19 is pending 3. Hypothyroidism. Continue Levoxyl as above. 4. Down syndrome. 5. Obesity. 6. Thrombocytopenia. 7. Leukocytosis. 8. Renal failure. A Nephrology consultation has been obtained with Dr. Alexis Villagomez. 9. DNI/DNR-see polst 10. ICU status 11. Prognosis is poor Luis Rodriguez MD November 14, 2019 12:53
--- NOTE | 2019-11-14 13:32 | Cardiology Progress Note ---
Assessment/Plan Assessment/Plan 1. Septic shock 2. Bacteremia. 3. Hypernatremia. 4. Status post acute renal failure. 5. Urinary tract infection with proteus 6. Thrombocytopenia. 7. seizure 8. tachy 9. asystole 10. thrombocytopenia 11. hyperkalemai 12. respiratoryacidssis despit emax nbipap wbc worse diarrhea with rectal tube pressors levophed and dopamine max doses yet remains profoundyly hypotensive covid isolation for PUI cxr personally reviewed tele personally reviewed ekg personally reviewed id noted on abx is becoming more bradycardic likely due to hyperkameia abg noted sever respiratory acidosis advance directive no cp no intubation prognosis poor d/w rn morbibound no cpr no intubation Subjective ROS Limited/Unobtainable: Yes Objective Last 24 Hour Vital Signs Date Time Temp Pulse Resp B/P (MAP) Pulse Ox O2 Delivery O2 Flow Rate FiO2 11/14/19 13:00 53 24 55/35 (42) 80 11/14/19 12:30 54 13 89/14 (39) 78 11/14/19 12:00 66 13 52/35 (41) 82 11/14/19 12:00 66 11/14/19 11:57 69/44 11/14/19 11:57 69/44 11/14/19 11:30 73 13 54/35 (41) 86 11/14/19 11:19 64 19 87 100 11/14/19 11:00 63 13 60/44 (49) 85 11/14/19 10:30 57 13 59/20 (33) 86 11/14/19 10:01 73 16 87 100 11/14/19 10:00 69 13 112/40 (64) 11/14/19 09:30 73 19 70/19 (36) 83 11/14/19 09:00 75 24 75/60 (65) 72 11/14/19 08:30 74 1 52/21 (31) 79 11/14/19 08:00 Bi-pap 11/14/19 08:00 97.3 77 17 83/65 (71) 76 11/14/19 08:00 74 11/14/19 07:57 83/14 11/14/19 07:35 88 Bi-Pap 11/14/19 07:30 73 25 78/35 (49) 11/14/19 07:29 74 16 88 100 11/14/19 07:00 62/20 11/14/19 07:00 65/20 11/14/19 07:00 65 26 60/21 (34) 72 11/14/19 06:45 71 25 87/64 (72) 70 11/14/19 06:30 77 22 73/56 (62) 84 11/14/19 06:17 66/15 11/14/19 06:15 77 21 62/21 (35) 11/14/19 06:00 79 23 66/15 (32) 91 11/14/19 06:00 62/50 11/14/19 05:45 79 25 49/28 (35) 91 11/14/19 05:30 79 22 67/42 (50) 96 11/14/19 05:17 80 11 75/55 (62) 99 11/14/19 05:15 79 14 78/20 (39) 82 11/14/19 05:00 65/44 11/14/19 05:00 65/32 11/14/19 05:00 79 10 65/32 (43) 89 11/14/19 04:45 75 25 128/107 (114) 89 11/14/19 04:30 65/32 11/14/19 04:30 65/45 11/14/19 04:30 65 15 126/82 (97) 84 11/14/19 04:15 73 7 60/44 (49) 82 11/14/19 04:00 Bi-pap 11/14/19 04:00 98.4 78 8 85/61 (69) 84 11/14/19 04:00 60/44 11/14/19 04:00 60/44 11/14/19 04:00 73 11/14/19 03:45 88 16 96 100 11/14/19 03:45 79 11 79/35 (50) 81 11/14/19 03:30 80 7 53/20 (31) 81 11/14/19 03:15 80 6 69/17 (34) 85 11/14/19 03:00 73/40 11/14/19 03:00 73/40 11/14/19 03:00 81 6 73/40 (51) 81 11/14/19 02:45 80 9 64/13 (30) 84 11/14/19 02:30 81 8 80/39 (53) 84 11/14/19 02:15 81 6 75/26 (42) 79 11/14/19 02:00 50/16 11/14/19 02:00 50/16 11/14/19 02:00 75 7 50/16 (27) 74 11/14/19 01:52 47/21 11/14/19 01:45 80 13 47/26 (33) 76 11/14/19 01:45 80 13 47/26 (33) 76 11/14/19 01:45 80 13 47/26 (33) 76 11/14/19 01:30 83 9 60/22 (35) 85 11/14/19 01:30 83 9 60/22 (35) 85 11/14/19 01:30 83 9 60/22 (35) 85 11/14/19 01:15 84 8 64/45 (51) 88 11/14/19 01:15 84 8 64/45 (51) 88 11/14/19 01:15 84 8 64/45 (51) 88 11/14/19 01:00 84 7 71/42 (52) 87 11/14/19 01:00 64/45 11/14/19 01:00 84 7 71/42 (52) 87 11/14/19 01:00 84 7 71/42 (52) 87 11/14/19 00:45 85 8 80/43 (55) 88 11/14/19 00:45 85 8 80/43 (55) 88 11/14/19 00:45 85 8 80/43 (55) 88 11/14/19 00:37 84 5 75/36 (49) 89 11/14/19 00:37 84 5 75/36 (49) 89 11/14/19 00:30 84 8 71/30 (44) 83 11/14/19 00:30 84 8 71/30 (44) 83 11/14/19 00:30 84 8 71/30 (44) 83 11/14/19 00:15 84 16 78/27 (44) 83 11/14/19 00:15 84 16 78/27 (44) 83 11/14/19 00:15 84 16 78/27 (44) 83 11/14/19 00:13 84 9 76/28 (44) 84 11/14/19 00:13 84 9 76/28 (44) 84 11/14/19 00:00 Bi-pap 11/14/19 00:00 85 9 75/21 (39) 85 11/14/19 00:00 85 9 75/21 (39) 85 11/14/19 00:00 85 11/14/19 00:00 76/28 11/14/19 00:00 98.8 85 9 75/21 (39) 85 11/13/19 23:45 83 12 71/26 (41) 78 11/13/19 23:30 82 18 70/41 (51) 75 11/13/19 23:29 58/21 11/13/19 23:28 58/21 11/13/19 23:01 93 16 95 100 11/13/19 23:00 46/17 11/13/19 23:00 86 8 68/41 (50) 88 11/13/19 22:45 87 17 74/32 (46) 90 11/13/19 22:30 88 12 83/17 (39) 97 11/13/19 22:15 88 14 87/20 (42) 99 11/13/19 22:01 83/64 11/13/19 22:00 88 18 92/25 (47) 95 11/13/19 22:00 92/28 11/13/19 21:30 89 12 86/28 (47) 96 11/13/19 21:18 65/30 11/13/19 21:00 89 23 87/37 (54) 98 11/13/19 21:00 85/42 11/13/19 20:50 66/33 11/13/19 20:30 75 22 61/31 (41) 87 11/13/19 20:00 Bi-pap 11/13/19 20:00 95/28 11/13/19 20:00 84 11/13/19 20:00 98.5 92 22 95/25 (48) 100 11/13/19 19:30 92 20 97/18 (44) 100 11/13/19 19:12 93 16 97 100 11/13/19 19:12 97 Bi-Pap 11/13/19 19:00 92 33 91/23 (45) 95 11/13/19 19:00 91/52 5/29/20 18:03 104/25 11/13/19 18:03 98/31 11/13/19 18:00 93 36 104/25 (51) 97 11/13/19 17:30 94 26 98/31 (53) 89 11/13/19 17:15 91 22 93/38 (56) 91 11/13/19 17:00 91 20 98/47 (64) 93 11/13/19 17:00 95/28 11/13/19 16:03 108/49 11/13/19 16:03 108/49 11/13/19 16:00 90 11/13/19 16:00 Bi-pap 11/13/19 16:00 99.0 90 20 105/40 (61) 93 11/13/19 16:00 108/49 11/13/19 15:28 86 11/13/19 15:00 90 20 111/44 (66) 86 11/13/19 15:00 108/49 11/13/19 14:24 84 16 49 100 11/13/19 14:20 80/40 11/13/19 14:00 110 24 111/46 (67) 98 11/13/19 14:00 111/46 11/13/19 13:30 93 28 128/49 (75) 92 General Appearance: patient on isolation, isolation precautions, other - on bipap max dose Intake and Output 11/13/19 11/14/19 19:00 07:00 Intake Total 2507.059 ml 2898.684 ml Balance 2507.059 ml 2898.684 ml Free Water 120 ml IV Total 2387.059 ml 2898.684 ml # Voids [id number] Laboratory Tests Test 11/14/19 07:51 11/14/19 08:34 11/14/19 09:05 Arterial Blood pH 6.592 (7.350-7.450) 6.711 (7.350-7.450) Arterial Blood Partial Pressure CO2 mmHg (35.0-45.0) 186.0 mmHg (35.0-45.0) *H Arterial Blood Partial Pressure O2 88.0 mmHg (75.0-100.0) 102.7 mmHg (75.0-100.0) H Arterial Blood HCO3 mmol/L (22.0-26.0) 23.0 mmol/L (22.0-26.0) Arterial Blood Oxygen Saturation 92.3 % (95-100) L 95.5 % (95-100) Arterial Blood Base Excess 0 (-2-2) -16.3 (-2-2) *L Rell Test Pending Positive White Blood Count 29.3 K/UL (4.8-10.8) *H Red Blood Count 3.61 M/UL (4.70-6.10) L Hemoglobin 12.6 G/DL (14.2-18.0) L Hematocrit 38.5 % (42.0-52.0) L Mean Corpuscular Volume 107 FL (80-99) H Mean Corpuscular Hemoglobin 35.0 PG (27.0-31.0) H Mean Corpuscular Hemoglobin Concent 32.8 G/DL (32.0-36.0) Red Cell Distribution Width 14.7 % (11.6-14.8) Platelet Count 154 K/UL (150-450) # Mean Platelet Volume 9.0 FL (6.5-10.1) Neutrophils (%) (Auto) % (45.0-75.0) Lymphocytes (%) (Auto) % (20.0-45.0) Monocytes (%) (Auto) % (1.0-10.0) Eosinophils (%) (Auto) % (0.0-3.0) Basophils (%) (Auto) % (0.0-2.0) Differential Total Cells Counted 100 Neutrophils % (Manual) 77 % (45-75) H Lymphocytes % (Manual) 3 % (20-45) L Monocytes % (Manual) 9 % (1-10) Eosinophils % (Manual) 0 % (0-3) Basophils % (Manual) 0 % (0-2) Metamyelocytes % 1 % (0-0) H Myelocytes % 2 % (0-0) H Band Neutrophils 8 % (0-8) Nucleated Red Blood Cells 2 /100 WBC Platelet Estimate Adequate Platelet Morphology Normal Polychromasia 1+ Anisocytosis 1+ Macrocytosis 1+ Sodium Level 135 MMOL/L (136-145) L Potassium Level 6.6 MMOL/L (3.5-5.1) *H Chloride Level 105 MMOL/L (98-107) Carbon Dioxide Level 31 MMOL/L (21-32) Anion Gap -1 mmol/L (5-15) L Blood Urea Nitrogen 31 mg/dL (7-18) H Creatinine 3.4 MG/DL (0.55-1.30) #H Estimat Glomerular Filtration Rate 21.9 mL/min (>60) Glucose Level 320 MG/DL (74-106) H Calcium Level 7.0 MG/DL (8.5-10.1) L Phosphorus Level 7.6 MG/DL (2.5-4.9) H Magnesium Level 2.0 MG/DL (1.8-2.4) Total Bilirubin 0.4 MG/DL (0.2-1.0) Aspartate Amino Transf (AST/SGOT) 56 U/L (15-37) H Alanine Aminotransferase (ALT/SGPT) 37 U/L (12-78) Alkaline Phosphatase 75 U/L (46-116) Total Protein 5.7 G/DL (6.4-8.2) L Albumin 1.6 G/DL (3.4-5.0) L Globulin 4.1 g/dL Albumin/Globulin Ratio 0.4 (1.0-2.7) L Random Gentamicin Level 7.9 ug/mL Random Vancomycin Level 11.9 ug/mL Microbiology Date/Time Source Procedure Growth Status 11/13/19 03:30 Sputum Gram Stain - Final Resulted 11/13/19 03:30 Sputum Sputum Culture - Preliminary NORMAL UPPER RESPIRATORY SARA AT 24 ... Resulted Irving Hoffman MD November 14, 2019 13:32
[2019-11-14] MEDS ORDERED: Sterile Water Irrig 1000ml IRRIG ONE ×2 (14:42)
[2019-11-14] MEDS ORDERED: NS Irrig 1000ml ONE (14:42)
[2019-11-14] MEDS ORDERED: D5W 550ml IV ONE (14:42)
[2019-11-14] MEDS ORDERED: Tubing IV Secondary IV ONE ×3 (14:42→17:40)
[2019-11-14] MEDS ORDERED: 1/2 NS 1000ml IV ONE ×2 (14:42)
[2019-11-14] MEDS ORDERED: NS 275ml ONE ×3 (14:42)
[2019-11-14] MEDS ORDERED: D5NS 1000ml IV ONE (17:34)
[2019-11-15] MEDS ORDERED: Enoxaparin 30mg Inj SUBQ SCH (09:00)
[2019-11-15] MEDS ORDERED: Enoxaparin 40mg Inj SUBQ SCH (09:00)
--- NOTE | 2019-11-16 10:32 | Discharge Summary ---
Discharge Summary Discharge Summary _ SUMMARY DATE OF ADMISSION: 11/08/2019 DATE OF EXPIRATION: 11/14/2019 REASON FOR ADMISSION: 69 years old male, resident of [facility] facility, with past medical history of diabetes mellitus, hypothyroidism, Down syndrome, with DNR/DNI status , was sent for evaluation due to abnormal labs. Upon evaluation patient required supplemental oxygen of 3 L via nasal cannula to maintain appropriate pulse oximetry. Patient was febrile with temperature 103.7 . Laboratory work-up revealed significant leukocytosis WBC 26.9, hemoglobin 13.5, hematocrit 45.6, platelet count 109. Lymphopenia noted. Urinalysis revealed +3 leukocyte esterase , pyuria and many bacteria , +4 protein. Chemistry revealed sodium 158, BUN 39, creatinine 2.4. Glucose 206. AST 43 , ALT 51. Troponin elevated 0.208 , pro BNP 3705.ECG revealed sinus rhythm, no acute ischemic changes. Albumin 1.9 . Lactic acid 1.9 In emergency department patient received antipyretic. Patient started on IV fluids, pancultured and started on empiric antibiotic. Patient was also swabbed for COVID-19. Patient subsequently admitted for further management. CONSULTANTS: client advocate Dr. Hoffman pulmonary Dr. Mustafa ID specialist Dr Fuentes juvenile court judge Dr. Villagomez [facility] COURSE: Patient admitted to telemetry floor to isolation room. Supplemental oxygen provided and titrated to keep saturation above 92%. Pulmonary toilet provided. DVT prophylaxis provided. Patient started on empiric antibiotics. Blood culture revealed Proteus . SARS COV 2 by PCR on and 11/11 not detected. Urine culture revealed Proteus. Repeated blood culture on 11/09 were negative. Sputum culture revealed Kina. Patient was followed up with a chest x-ray. Antibiotic provided as per ID recommendation. Echocardiogram revealed preserved ejection fraction of echocardiogram . Study was limited due to patient being combative. It showed however, normal left ventricular chamber size, systolic function and wall motion to the extent visualized. Left ventricular ejection fraction estimated to be grossly normal. Serial troponin trended, remain minimally elevated. DVT prophylaxis with low molecular weight heparin provided. Patient was hypotensive , and initially started on midodrine for blood pressure support. Antiplatelet therapy with aspirin and GI prophylaxis provided. Levothyroxine continued. Patient started on the IV fluids with close monitoring of renal parameters and electrolytes. Electrolytes corrected as needed , and nephrotoxic's were avoided. Per juvenile court judge renal failure had a major component of dehydration due to hypernatremia present. Respiratory status was getting progressively worse. On 11/11 patient required 100% nonrebreathing mask. ABG revealed severe respiratory acidosis with pH of 6.97 and PCO2 122. Patient started on the BiPAP with close monitoring of acid-base balance . ABG initially slightly improved, but then started to further deteriorate. On 11/09 central line was palced fro pressors by ED physician and patient started on pressor. Patient eventually required two different pressors: Levophed and dopamine. Hemodynamic status was closely monitored with goal to keep mean arterial blood pressure above 65. Patient condition was rapidly deteriorating. Overall prognosis was poor. Patient was pronounced at 14: 43 on 10/17. Cause of : cardiopulmonary arrest FINAL DIAGNOSES: Sepsis with septic shock Proteus bacteremia Proteus UTI Probably pneumonia Suspected COVID-19 infection -ruled out Acute hypoxic hypercapnic respiratory failure requiring BiPAP Acute kidney injury likely due to dehydration Elevated troponin Diabetes mellitus Obstructive sleep apnea Hypothyroidism Down syndrome Thrombocytopenia Sacral decubitus ulcer present on admission, no signs of infection DNR/DNI status Candy Hurley NP Nov 16, 2019 10:32
== END 2019-11-14 14:43 | disposition expired | DRG 871 ==
LOC: EDBD 19:31 → EMR 19:55 → 2E 20:30 → EDBEDREQ 22:44 → ICU 11-10 18:27
PROC: 06HM33Z Insertion of Infusion Device into Right Femoral Vein, Percutaneous Approach (ICD-10-PCS; principal; 2019-11-10)
DX: A41.9 Sepsis, unspecified organism (principal); J18.9 Pneumonia, unspecified organism; R65.21 Severe sepsis with septic shock; J96.00 Acute respiratory failure, unspecified whether with hypoxia or hypercapnia; E87.0 Hyperosmolality and hypernatremia; N17.9 Acute kidney failure, unspecified; N39.0 Urinary tract infection, site not specified; J44.0 Chronic obstructive pulmonary disease with (acute) lower respiratory infection; Q90.9 Down syndrome, unspecified; E11.9 Type 2 diabetes mellitus without complications; N18.9 Chronic kidney disease, unspecified; E03.9 Hypothyroidism, unspecified; D69.6 Thrombocytopenia, unspecified; E86.0 Dehydration; Z66 Do not resuscitate; G47.33 Obstructive sleep apnea (adult) (pediatric); Z20.828 Contact with and (suspected) exposure to other viral communicable diseases; R79.89 Other specified abnormal findings of blood chemistry; R56.9 Unspecified convulsions; E87.5 Hyperkalemia; R19.7 Diarrhea, unspecified; L89.156 Pressure-induced deep tissue damage of sacral region
CPT/HCPCS: 36415; 36600; 71045; 74018; 80048; 80053; 80061; 80150; 80170; 80190; 80192; 80202; 81003; 82550; 82553; 82607; 82728; 82746; 82803; 82962; 82977; 83036; 83540; 83550; 83605; 83735; 83880; 84100; 84439; 84443; 84481; 84484; 84550; 85007; 85025; 85610; 85651; 85730; 86140; 87040; 87070; 87081; 87086; 87181; 87205; 87635; 93005; 93306; 94660; 94664; 96361; 96365; 96367; 96375; 99285; J1165; J7030